=== PATIENT | female | born 1955 | race Caucasian/White ===

== ENCOUNTER → 2020-07-04 10:49 | Outpatient (BNVA) | payer MEDICARE, SELFPAY | PROVIDERS: PCP Internal Medicine; Referring Provider Internal Medicine; Visit Provider Orthopaedic Surgery | DX: M17.0 Bilateral primary osteoarthritis of knee (principal) | CPT/HCPCS: 20610; 99213; 99214; J1040 ==

== ENCOUNTER → 2020-08-12 09:30 | Outpatient (BNV) | payer MEDICARE, SELFPAY | PROVIDERS: PCP Internal Medicine; Visit Provider Internal Medicine Medical Oncology | DX: D51.9 Vitamin B12 deficiency anemia, unspecified (principal) | CPT/HCPCS: 99213; 99214 ==

== ENCOUNTER 2020-09-01 13:11 | Outpatient (REF) | payer MEDICARE, SELFPAY ==
[2020-09-01 14:09] LABS: MANUAL DIFF FLAG NO
[2020-09-01 14:34] LABS: Estimated Average Glucose 117 mg/dL; Hemoglobin A1c % 5.7 %
[2020-09-01 14:38] LABS: Basophils Percent Auto 0.6 % (0-2); Eosinophils Absolute Auto 0.2 X10*3/uL (0.0-0.4); Eosinophils Percent Auto 5.5 % (0-4); Hematocrit 38.6 % (37-47); Hemoglobin 12.6 g/dl (12.0-16.0); Imm Gran Abs Auto 0.01 X10*3/uL (0.00-0.03); Imm Gran Pct Auto 0.3 % (0.0-0.4); Lymphocytes Absolute Auto 1.3 X10*3/uL (1.2-4.9); Lymphocytes Percent Auto 40.3 % (20-40); Mean Corpuscular HGB Conc 32.6 g/dl (31.0-35.0); Mean Corpuscular Hemoglobin 32.1 pg (27.0-33.0); Mean Corpuscular Volume 98.2 fL (80-98); Mean Platelet Volume 11.1 fL (9.4-12.3); Monocytes Absolute Auto 0.2 X10*3/uL (0.1-1.2); Monocytes Percent Auto 6.1 % (2-11); Neutrophils Absolute Auto 1.5 X10*3/uL (2.0-8.3); Neutrophils Percent Auto 47.2 % (45-73); Platelet Count 264 X10*3/uL (160-400); Red Blood Count 3.93 X10*6/uL (4.20-5.50); Red Cell Distribution Width 12.7 % (11.0-16.0); White Blood Count 3.1 X10*3/uL (4.8-10.8)
[2020-09-01 15:06] LABS: Alanine Aminotransferase 11 U/L (0-31); Albumin Level 4.4 g/dL (3.5-5.0); Alkaline Phosphatase 67 U/L (39-117); Anion Gap 12 (12-20); Aspartate Amino Transferase 17 U/L (5-31); Bilirubin Total 1.3 mg/dL (0.0-1.0); Blood Urea Nitrogen 11 mg/dL (9-16); Calcium 8.4 mg/dL (8.4-10.2); Carbon Dioxide 28 mmol/L (22-29); Chloride 105 mmol/L (96-108); Cholesterol 166 mg/dL; Estimated Glomerular Filt Rate > 60; Glucose Fasting 102 mg/dL (60-99); HDL Cholesterol 41 mg/dL; LDL Cholesterol Calculated 78 mg/dl; Potassium 4.5 mmol/l (3.3-5.1); Sodium 140 mmol/L (135-145); Total Protein 6.9 g/dL (6.5-8.0); Triglycerides 235 mg/dL
[2020-09-01 15:19] LABS: TSH reflex Free T4 4.28 mIU/mL (0.32-4.0)
[2020-09-01 15:26] LABS: Erythrocyte Sedimentation Rate 10 MM/HR (0-20)
[2020-09-01 15:52] LABS: Folate > 20.0 ng/mL (> or = 4.0); Vitamin B12 > 2000 pg/mL (200-900)
[2020-09-01 16:27] LABS: Free T4 (Free Thyroxine) 0.89 ng/dL (0.71-1.85)
== END 2020-09-01 13:12 | disposition home or self-care (01) ==
LOC: HO.LAB 13:11
PROVIDERS: Visit Provider Internal Medicine
DX: E78.5 Hyperlipidemia, unspecified (principal); I10 Essential (primary) hypertension; R73.01 Impaired fasting glucose; E53.8 Deficiency of other specified B group vitamins; M79.7 Fibromyalgia; M51.36 Other intervertebral disc degeneration, lumbar region; E55.9 Vitamin D deficiency, unspecified; E66.3 Overweight
CPT/HCPCS: 36415; 80053; 80061; 82306; 82607; 82746; 83036; 84439; 84443; 85025; 85652

== ENCOUNTER 2020-12-15 15:51 | Outpatient (REF) | payer MEDICARE, SELFPAY ==
[2020-12-15 16:46] LABS: Glucose Urine UA NEG (NEG); Leukocyte Esterase Urine NEG (NEG); Nitrite Urine NEG (NEG); PH 6.5 (5.0-8.0); Specific Gravity - Urine 1.015 (1.005-1.025); Urine Blood NEG (NEG); Urine Ketones NEG (NEG); Urine Protein NEG (NEG-TRACE)
[2020-12-15 16:50] LABS: Appearance Urine CLEAR; Color Urine YELLOW
[2020-12-15 16:54] LABS: MANUAL DIFF FLAG NO
[2020-12-15 16:57] LABS: Basophils Percent Auto 0.5 % (0-2); Eosinophils Absolute Auto 0.3 X10*3/uL (0.0-0.4); Eosinophils Percent Auto 7.3 % (0-4); Hematocrit 40.8 % (37-47); Hemoglobin 13.2 g/dl (12.0-16.0); Imm Gran Abs Auto 0.01 X10*3/uL (0.00-0.03); Imm Gran Pct Auto 0.3 % (0.0-0.4); Lymphocytes Absolute Auto 1.6 X10*3/uL (1.2-4.9); Mean Corpuscular HGB Conc 32.4 g/dl (31.0-35.0); Mean Corpuscular Hemoglobin 31.7 pg (27.0-33.0); Mean Corpuscular Volume 98.1 fL (80-98); Mean Platelet Volume 10.9 fL (9.4-12.3); Monocytes Absolute Auto 0.2 X10*3/uL (0.1-1.2); Monocytes Percent Auto 5.1 % (2-11); Neutrophils Absolute Auto 1.6 X10*3/uL (2.0-8.3); Neutrophils Percent Auto 43.8 % (45-73); Platelet Count 273 X10*3/uL (160-400); Red Blood Count 4.16 X10*6/uL (4.20-5.50); Red Cell Distribution Width 12.6 % (11.0-16.0); White Blood Count 3.7 X10*3/uL (4.8-10.8)
[2020-12-15 17:31] LABS: Alanine Aminotransferase 15 U/L (0-31); Albumin Level 4.5 g/dL (3.5-5.0); Alkaline Phosphatase 74 U/L (39-117); Anion Gap 14 (12-20); Aspartate Amino Transferase 17 U/L (5-31); Bilirubin Total 1.8 mg/dL (0.0-1.0); Blood Urea Nitrogen 15 mg/dL (9-16); Calcium 9.2 mg/dL (8.4-10.2); Carbon Dioxide 28 mmol/L (22-29); Chloride 103 mmol/L (96-108); Cholesterol 187 mg/dL; Estimated Glomerular Filt Rate > 60; Glucose Fasting 103 mg/dL (60-99); HDL Cholesterol 53 mg/dL; LDL Cholesterol Calculated 102 mg/dl; Potassium 4.5 mmol/L (3.3-5.1); Sodium 140 mmol/L (135-145); Total Protein 7.2 g/dL (6.5-8.0); Triglycerides 163 mg/dL
[2020-12-15 17:51] LABS: Erythrocyte Sedimentation Rate 9 MM/HR (0-20)
[2020-12-15 17:52] LABS: TSH reflex Free T4 3.81 uIU/mL (0.32-4.0); Vitamin D 25-OH Total 23.9 ng/mL (>30)
[2020-12-15 18:13] LABS: Folate > 20.0 ng/mL (> or = 4.0); Vitamin B12 > 2000 pg/mL (200-900)
== END 2020-12-15 15:52 | disposition home or self-care (01) ==
LOC: HO.LAB 15:51
PROVIDERS: PCP Internal Medicine; Visit Provider Internal Medicine
DX: E53.8 Deficiency of other specified B group vitamins (principal); I10 Essential (primary) hypertension; M79.7 Fibromyalgia; D72.819 Decreased white blood cell count, unspecified; E78.00 Pure hypercholesterolemia, unspecified; R73.01 Impaired fasting glucose; M17.0 Bilateral primary osteoarthritis of knee; E66.3 Overweight; E55.9 Vitamin D deficiency, unspecified
CPT/HCPCS: 36415; 80053; 80061; 81003; 82306; 82607; 82746; 84443; 85025; 85652

== ENCOUNTER 2021-12-03 11:07 | Outpatient (REF) | payer MEDICARE, SELFPAY ==
[2021-12-03 11:29] LABS: MANUAL DIFF FLAG NO
[2021-12-03 12:31] LABS: Basophils Percent Auto 0.3 % (0-2); Eosinophils Absolute Auto 0.2 X10*3/uL (0.0-0.4); Eosinophils Percent Auto 5.2 % (0-4); Hematocrit 39.5 % (37.0-47.0); Hemoglobin 12.6 g/dl (12.0-16.0); Imm Gran Abs Auto 0.01 X10*3/uL (0.00-0.03); Imm Gran Pct Auto 0.3 % (0.0-0.4); Lymphocytes Absolute Auto 1.6 X10*3/uL (1.2-4.9); Lymphocytes Percent Auto 42.2 % (20-40); Mean Corpuscular HGB Conc 31.9 g/dl (31.0-35.0); Mean Corpuscular Hemoglobin 31.3 pg (27.0-33.0); Mean Platelet Volume 11.1 fL (9.4-12.3); Monocytes Absolute Auto 0.2 X10*3/uL (0.1-1.2); Monocytes Percent Auto 6.3 % (2-11); Neutrophils Absolute Auto 1.7 x10*3/uL (2.0-8.3); Neutrophils Percent Auto 45.7 % (45-73); Platelet Count 282 X10*3/uL (160-400); Red Blood Count 4.03 X10*6/uL (4.20-5.50); Red Cell Distribution Width 12.8 % (11.0-16.0); White Blood Count 3.7 X10*3/uL (4.8-10.8)
[2021-12-03 12:40] LABS: Estimated Average Glucose 117 mg/dL; Hemoglobin A1c % 5.7 %
[2021-12-03 12:45] LABS: Appearance Urine CLOUDY; Color Urine YELLOW; Glucose Urine UA NEG (NEG); Leukocyte Esterase Urine TRACE (NEG); Nitrite Urine NEG (NEG); Specific Gravity - Urine >= 1.030 (1.005-1.025); UACC Culture Trigger YES; Urine Blood NEG (NEG); Urine Ketones 5 MG/DL (NEG); Urine Protein 1+ MG/DL (NEG-TRACE)
[2021-12-03 13:01] LABS: Alanine Aminotransferase 17 U/L (0-31); Albumin Level 4.3 g/dL (3.5-5.0); Alkaline Phosphatase 72 U/L (39-117); Anion Gap 12 (12-20); Aspartate Amino Transferase 18 U/L (5-31); Bilirubin Total 1.9 mg/dL (0.0-1.0); Blood Urea Nitrogen 13 mg/dL (9-16); Calcium 9.8 mg/dL (8.4-10.2); Carbon Dioxide 29 mmol/L (22-29); Chloride 103 mmol/L (96-108); Cholesterol 173 mg/dL; Estimated Glomerular Filt Rate 57; Glucose Fasting 102 mg/dL (60-99); HDL Cholesterol 51 mg/dL; LDL Cholesterol Calculated 99 mg/dl; Potassium 4.3 mmol/L (3.3-5.1); Sodium 140 mmol/L (135-145); Total Protein 6.9 g/dL (6.5-8.0); Triglycerides 119 mg/dL
[2021-12-03 13:02] LABS: Bacteria Urine 2+ /LPF; RBC Urine 0-2 /HPF (0); Squamous Epithelial Cell Urine 3+ /LPF
[2021-12-03 13:24] LABS: TSH reflex Free T4 3.21 uIU/mL (0.32-4.0); Vitamin D 25-OH Total 22.7 ng/mL (>30)
[2021-12-03 13:38] LABS: Folate > 20.0 ng/mL (> or = 4.0); Vitamin B12 1886 pg/mL (200-900)
== END 2021-12-03 11:08 | disposition home or self-care (01) ==
LOC: HO.LAB 11:07
PROVIDERS: PCP Internal Medicine; Visit Provider Internal Medicine
DX: R73.01 Impaired fasting glucose (principal); E53.8 Deficiency of other specified B group vitamins; I10 Essential (primary) hypertension; E78.00 Pure hypercholesterolemia, unspecified; E55.9 Vitamin D deficiency, unspecified
CPT/HCPCS: 36415; 80053; 80061; 81001; 82306; 82607; 82746; 83036; 84443; 85025; 87086

== ENCOUNTER 2022-02-19 16:18 | Outpatient (REF) | payer MEDICARE, SELFPAY ==
--- NOTE | ~2022-02-19 | XR_ITS ---
EXAMINATION: XR LUMBAR SPINE XR HIP, LEFT XR KNEE, BILATERAL CLINICAL INFORMATION: Low back pain. Bilateral knee and left hip pain. COMPARISON: None. TECHNIQUE: Lumbar spine 3 views. Left hip 2 views. 4 views each knee. FINDINGS: Lumbar Spine: There is minimal levoscoliosis. Lumbar lordosis is maintained normal. There is mild grade 1 retrolisthesis L3 over L4 and L2 over L3 with degenerative disc changes at L2-L3 and L3-L4 disc levels with endplate sclerosis at the L3-L4 and minimal at the L4-L5 disc levels. The rest of the disc heights are maintained normal. No acute fracture or lytic process seen. The paravertebral soft tissues are normal. SI joints are normal. Left Hip: The left hip joint space is maintained normal. There is no visible acute fracture, dislocation or bony erosive changes. The soft tissues are normal. Left knee: There is mild reduction in the medial and patellofemoral compartment joint space with mild periarticular spurring. No loose bodies seen. There is mild suprapatellar joint effusion. No bony erosive changes or fracture. Right knee: There is some mild loss of medial and patellofemoral compartment joint space with periarticular spurring. There is minimal suprapatellar joint effusion. No loose bodies or bony erosive changes no acute fracture. XR/XR hip LT min 2V IMPRESSION: Degenerative disc changes L2-L3 and L3-L4 disc levels with ventral spondylosis. Grade 1 retrolisthesis L3 over L4 and L2 over L3. No acute fractures seen. Unremarkable left hip exam. Bilateral degenerative changes medial and patellofemoral compartments with periarticular spurring in both knees. There is mild suprapatellar joint effusion bilaterally. No visible acute fracture seen.
--- NOTE | ~2022-02-19 | XR_ITS ---
EXAMINATION: XR LUMBAR SPINE XR HIP, LEFT XR KNEE, BILATERAL CLINICAL INFORMATION: Low back pain. Bilateral knee and left hip pain. COMPARISON: None. TECHNIQUE: Lumbar spine 3 views. Left hip 2 views. 4 views each knee. FINDINGS: Lumbar Spine: There is minimal levoscoliosis. Lumbar lordosis is maintained normal. There is mild grade 1 retrolisthesis L3 over L4 and L2 over L3 with degenerative disc changes at L2-L3 and L3-L4 disc levels with endplate sclerosis at the L3-L4 and minimal at the L4-L5 disc levels. The rest of the disc heights are maintained normal. No acute fracture or lytic process seen. The paravertebral soft tissues are normal. SI joints are normal. Left Hip: The left hip joint space is maintained normal. There is no visible acute fracture, dislocation or bony erosive changes. The soft tissues are normal. Left knee: There is mild reduction in the medial and patellofemoral compartment joint space with mild periarticular spurring. No loose bodies seen. There is mild suprapatellar joint effusion. No bony erosive changes or fracture. Right knee: There is some mild loss of medial and patellofemoral compartment joint space with periarticular spurring. There is minimal suprapatellar joint effusion. No loose bodies or bony erosive changes no acute fracture. XR/XR lumbar spine 2-3V IMPRESSION: Degenerative disc changes L2-L3 and L3-L4 disc levels with ventral spondylosis. Grade 1 retrolisthesis L3 over L4 and L2 over L3. No acute fractures seen. Unremarkable left hip exam. Bilateral degenerative changes medial and patellofemoral compartments with periarticular spurring in both knees. There is mild suprapatellar joint effusion bilaterally. No visible acute fracture seen.
--- NOTE | ~2022-02-19 | XR_ITS ---
EXAMINATION: XR LUMBAR SPINE XR HIP, LEFT XR KNEE, BILATERAL CLINICAL INFORMATION: Low back pain. Bilateral knee and left hip pain. COMPARISON: None. TECHNIQUE: Lumbar spine 3 views. Left hip 2 views. 4 views each knee. FINDINGS: Lumbar Spine: There is minimal levoscoliosis. Lumbar lordosis is maintained normal. There is mild grade 1 retrolisthesis L3 over L4 and L2 over L3 with degenerative disc changes at L2-L3 and L3-L4 disc levels with endplate sclerosis at the L3-L4 and minimal at the L4-L5 disc levels. The rest of the disc heights are maintained normal. No acute fracture or lytic process seen. The paravertebral soft tissues are normal. SI joints are normal. Left Hip: The left hip joint space is maintained normal. There is no visible acute fracture, dislocation or bony erosive changes. The soft tissues are normal. Left knee: There is mild reduction in the medial and patellofemoral compartment joint space with mild periarticular spurring. No loose bodies seen. There is mild suprapatellar joint effusion. No bony erosive changes or fracture. Right knee: There is some mild loss of medial and patellofemoral compartment joint space with periarticular spurring. There is minimal suprapatellar joint effusion. No loose bodies or bony erosive changes no acute fracture. XR/XR knee RT 3V IMPRESSION: Degenerative disc changes L2-L3 and L3-L4 disc levels with ventral spondylosis. Grade 1 retrolisthesis L3 over L4 and L2 over L3. No acute fractures seen. Unremarkable left hip exam. Bilateral degenerative changes medial and patellofemoral compartments with periarticular spurring in both knees. There is mild suprapatellar joint effusion bilaterally. No visible acute fracture seen.
--- NOTE | ~2022-02-19 | XR_ITS ---
EXAMINATION: XR LUMBAR SPINE XR HIP, LEFT XR KNEE, BILATERAL CLINICAL INFORMATION: Low back pain. Bilateral knee and left hip pain. COMPARISON: None. TECHNIQUE: Lumbar spine 3 views. Left hip 2 views. 4 views each knee. FINDINGS: Lumbar Spine: There is minimal levoscoliosis. Lumbar lordosis is maintained normal. There is mild grade 1 retrolisthesis L3 over L4 and L2 over L3 with degenerative disc changes at L2-L3 and L3-L4 disc levels with endplate sclerosis at the L3-L4 and minimal at the L4-L5 disc levels. The rest of the disc heights are maintained normal. No acute fracture or lytic process seen. The paravertebral soft tissues are normal. SI joints are normal. Left Hip: The left hip joint space is maintained normal. There is no visible acute fracture, dislocation or bony erosive changes. The soft tissues are normal. Left knee: There is mild reduction in the medial and patellofemoral compartment joint space with mild periarticular spurring. No loose bodies seen. There is mild suprapatellar joint effusion. No bony erosive changes or fracture. Right knee: There is some mild loss of medial and patellofemoral compartment joint space with periarticular spurring. There is minimal suprapatellar joint effusion. No loose bodies or bony erosive changes no acute fracture. XR/XR knee LT 3V IMPRESSION: Degenerative disc changes L2-L3 and L3-L4 disc levels with ventral spondylosis. Grade 1 retrolisthesis L3 over L4 and L2 over L3. No acute fractures seen. Unremarkable left hip exam. Bilateral degenerative changes medial and patellofemoral compartments with periarticular spurring in both knees. There is mild suprapatellar joint effusion bilaterally. No visible acute fracture seen.
[2022-02-19 16:32] LABS: MANUAL DIFF FLAG NO
[2022-02-19 17:01] LABS: Basophils Percent Auto 0.5 % (0-2); Eosinophils Absolute Auto 0.3 X10*3/uL (0.0-0.4); Eosinophils Percent Auto 6.1 % (0-4); Hematocrit 40.1 % (37.0-47.0); Hemoglobin 12.8 g/dl (12.0-16.0); Imm Gran Abs Auto 0.01 X10*3/uL (0.00-0.03); Imm Gran Pct Auto 0.2 % (0.0-0.4); Lymphocytes Absolute Auto 1.8 X10*3/uL (1.2-4.9); Lymphocytes Percent Auto 44.7 % (20-40); Mean Corpuscular HGB Conc 31.9 g/dl (31.0-35.0); Mean Corpuscular Hemoglobin 30.9 pg (27.0-33.0); Mean Corpuscular Volume 96.9 fL (80.0-98.0); Mean Platelet Volume 10.7 fL (9.4-12.3); Monocytes Absolute Auto 0.2 X10*3/uL (0.1-1.2); Monocytes Percent Auto 5.7 % (2-11); Neutrophils Absolute Auto 1.7 x10*3/uL (2.0-8.3); Neutrophils Percent Auto 42.8 % (45-73); Platelet Count 282 X10*3/uL (160-400); Red Blood Count 4.14 X10*6/uL (4.20-5.50); Red Cell Distribution Width 12.9 % (11.0-16.0); White Blood Count 4.1 X10*3/uL (4.8-10.8)
[2022-02-19 17:10] LABS: Estimated Average Glucose 117 mg/dL; Hemoglobin A1c % 5.7 %
[2022-02-19 17:18] LABS: Alanine Aminotransferase 20 U/L (0-31); Albumin Level 4.2 g/dL (3.5-5.0); Alkaline Phosphatase 70 U/L (39-117); Anion Gap 13 (12-20); Aspartate Amino Transferase 20 U/L (5-31); Bilirubin Total 1.8 mg/dL (0.0-1.0); Blood Urea Nitrogen 13 mg/dL (9-16); Calcium 9.4 mg/dL (8.4-10.2); Carbon Dioxide 28 mmol/L (22-29); Chloride 103 mmol/L (96-108); Cholesterol 191 mg/dL; Estimated Glomerular Filt Rate 59; Glucose Fasting 104 mg/dL (60-99); HDL Cholesterol 49 mg/dL; LDL Cholesterol Calculated 114 mg/dl; Magnesium 2.1 mg/dL (1.6-2.6); Potassium 4.4 mmol/L (3.3-5.1); Sodium 140 mmol/L (135-145); Total Protein 7.1 g/dL (6.5-8.0); Triglycerides 143 mg/dL
[2022-02-19 17:40] LABS: TSH reflex Free T4 1.95 uIU/mL (0.32-4.0); Vitamin D 25-OH Total 21.1 ng/mL (>30)
== END 2022-02-19 16:19 | disposition home or self-care (01) ==
LOC: HO.LAB 16:18
PROVIDERS: PCP Internal Medicine; Visit Provider Internal Medicine
DX: I10 Essential (primary) hypertension (principal); E78.00 Pure hypercholesterolemia, unspecified; R73.01 Impaired fasting glucose; E83.42 Hypomagnesemia; E55.9 Vitamin D deficiency, unspecified; M17.0 Bilateral primary osteoarthritis of knee; M25.552 Pain in left hip; M51.36 Other intervertebral disc degeneration, lumbar region; Z91.81 History of falling
CPT/HCPCS: 36415; 72100; 73502; 73562; 80053; 80061; 82306; 83036; 83735; 84443; 85025

== ENCOUNTER → 2022-03-04 08:44 | Outpatient (BNVA) | payer MEDICARE, SELFPAY | PROVIDERS: PCP Internal Medicine; Visit Provider Orthopaedic Surgery | DX: M17.0 Bilateral primary osteoarthritis of knee (principal) | CPT/HCPCS: 20610; 99212; J1100 ==

== ENCOUNTER 2022-03-31 11:57 | Day surgery (SDC) | payer MEDICARE, SELFPAY ==
--- NOTE | 2022-03-30 08:30 | P.CONAN_ITS ---
Documented by User: Elba Frank NP 03/30/22 08:31 HPI - Anesthesia Eval Consult details Narrative: 66yo F for Colonoscopy PMFSH Active Problems Active Problems: All Active Problems (Updated 02/25/22 @ 19:04 by Quinton Knight MD) Pain of right great toe (Acute) GERD (gastroesophageal reflux disease) (Acute) Left hip pain (Acute) Leukopenia (Acute) Serum total bilirubin elevated (Acute) Overweight (BMI 25.0-29.9) (Acute) Depression (Acute) Anxiety (Acute) Osteoarthritis of knees, bilateral (Acute) Cervical spondylosis (Acute) Lumbar degenerative disc disease (Acute) Fibromyalgia (Acute) Vitamin D deficiency (Acute) Leukopenia (Acute) Exertional dyspnea (Acute) Impaired fasting glucose (Acute) Benign essential hypertension (Acute) Pure hypercholesterolemia (Acute) Vitamin B12 deficiency (Acute) Primary osteoarthritis of knees, bilateral (Acute) Past Medical History Medical History Anxiety Benign essential hypertension Cervical spondylosis Depression Exertional dyspnea Fibromyalgia Impaired fasting glucose Leukopenia Lumbar degenerative disc disease Osteoarthritis of knees, bilateral Overweight (BMI 25.0-29.9) Pure hypercholesterolemia Serum total bilirubin elevated Vitamin D deficiency Family History Family History Father Past heart attack CVD (cardiovascular disease) Mother Hypertension Lung cancer Sister Breast cancer Brother Diabetes Maternal Aunt Diabetes Paternal Aunt Ovarian cancer Surgical History Surgical History H/O left breast biopsy History of appendectomy Social History Social History Household Members: Family Housing: House Are you a primary career developer to a significant other at home: No Do you presently have visiting nurse or other home services: No Alcohol intake: current Alcohol intake frequency: holidays/special occasions o nly Patient Tobacco Use Status: Former Tobacco user Second Hand Smoke Exposure: Yes Use of substances other than those prescribed or required for medical reasons: No Are you DNR?: No Advance Directives: No Advance Directives Information Provided: Yes Recently lost weight without trying: No How much weight loss: 2-13 pounds Nutrition Risks: No Nutritional Risk service: No Current occupational status: retired Cognitive needs: No Hearing needs: No Vision needs: Yes Meds Allergies Allergy/AdvReac Type Severity Reaction Status Date / Time levofloxacin [From LEVAQUIN] AdvReac Mild TENDONITIS, Verified 02/23/22 11:17 JOINT PAIN Home Medications Medication Instructions Recorded Confirmed Last Taken Type cholecalciferol (vitamin D3) 25 25 mcg PO DAILY 02/23/21 02/23/22 Unknown Hi story mcg (1,000 unit) tablet (Vitamin D3) cyanocobalamin (vitamin B-12) 1,000 mcg PO DAILY 02/23/21 02/23/22 Unknown History 1,000 mcg capsule folic acid 1 mg tablet 1 tab PO DAILY 02/23/21 02/23/22 Unknown History magnesium 250 mg tablet 250 mg PO DAILY 02/23/21 02/23/22 Unknown History loratadine 10 mg tablet (Claritin) 10 mg PO DAILY 02/23/22 02/23/22 Unknown History Exam Exam Date and Time: March 30, [id number] Pertinent Lab Results Pertinent Lab Results: Laboratory Tests 02/23/22 02/23/22 11:07 11:07 WBC 3.4 L Hgb 12.5 Hct 38.1 Plt Count 250 Sodium 141 Potassium 4.6 Chloride 106 Carbon Dioxide 27 BUN 15 Creatinine 0.97 Assessment and Plan Assessment Anesthesia Assessment: Chart Reviewed Documented by User: Yamilka Cortez MD 03/31/22 13:26 [facility] Past Medical History Medical History Anxiety Benign essential hypertension Cervical spondylosis Depression Exertional dyspnea Fibromyalgia Impaired fasting glucose Leukopenia Lumbar degenerative disc disease Osteoarthritis of knees, bilateral Overweight (BMI 25.0-29.9) Pure hypercholesterolemia Serum total bilirubin elevated Vitamin D deficiency Family History Family History Father Past heart attack CVD (cardiovascular disease) Mother Hypertension Lung cancer Sister Breast cancer Brother Diabetes Maternal Aunt Diabetes Paternal Aunt Ovarian cancer Surgical History Surgical History H/O left breast biopsy History of appendectomy History of Problems with Anesthesia: No Social History Social History Household Members: Family Housing: House Are you a primary career developer to a significant other at home: No Do you presently have visiting nurse or other home services: No Alcohol intake: current Alcohol intake frequency: holidays/special occasions only Patient Tobacco Use Status: Former Tobacco user Second Hand Smoke Exposure: Yes Use of substances other than those prescribed or required for medical reasons: No Are you DNR?: No Advance Directives: No Advance Directives Information Provided: Yes Recently lost weight without trying: No How much weight loss: 2-13 pounds Nutrition Risks: No Nutritional Risk service: No Current occupational status: retired Cognitive needs: No Hearing needs: No Vision needs: Yes Meds Allergies Allergy/AdvReac Type Severity Reaction Status Date / Time levofloxacin [From LEVAQUIN] AdvReac Mild TENDONITIS, Verified 02/23/22 11:17 JOINT PAIN Home Medications Medication Instructions Recorded Confirmed Last Taken Type cholecalciferol (vitamin D3) 25 25 mcg PO DAILY 02/23/21 02/23/22 Unknown History mcg (1,000 unit) tablet (Vitamin D3) cyanocobalamin (vitamin B-12) 1,000 mcg PO DAILY 02/23/21 02/23/22 Unknown History 1,000 mcg capsule folic acid 1 mg tablet 1 tab PO DAILY 02/23/21 02/23/22 Unknown History magnesium 250 mg tablet 250 mg PO DAILY 02/23/21 02/23/22 Unknown History loratadine 10 mg tablet (Claritin) 10 mg PO DAILY 02/23/22 02/23/22 Unknown History Exam Airway Mallampati Class: III TM Dist: >3cm Neck ROM: Full Heart: RRR Lungs: CTA Assessment and Plan Final Anesthetic Review History of Problems with Anesthesia: No NPO: Yes ASA Class: II Final Preanesthetic Review: Meds/Allgs Chart Reviewed, Consent Obtained/Reviewed and Anes Risks/Benef Reviewed Patient Risk: Low Procedure Risk: Low Anesthetic Plan Anesthetic Plan: MAC: Disposition: Standard PACU
[2022-03-31 12:04] VITALS: BMI 27.9
[2022-03-31 12:09] VITALS: BP 155/75; PULSE 84; RESP 16; TEMP 36.4; O2SAT 97
[2022-03-31] MEDS: Lactated Ringers 1,000 ML 100 ML IVCONT (12:29)
--- NOTE | 2022-03-31 12:59 | MHC.SHP ---
Pre-Procedural Eval Section A Date of Service: 03/31/22 The patient is an INPATIENT: No Changes since office visit: No Cold of Flu in the past 2 weeks, No New Medical Problems, No Changes in Medication and No Patient answered all questions The History & Physical has been completed within 30 days and I have reviewed it.: Yes Section B Chief Complaint: screening Allergies: Allergies Allergy/AdvReac Type Severity Reaction Status Date / Time levofloxacin [From LEVAQUIN] AdvReac Mild TENDONITIS, Verified 02/23/22 11:17 JOINT PAIN Plan I have reviewed the history and physical and performed a pertinent physical examination on my patient. No changes have occurred unless specified.
--- NOTE | 2022-03-31 13:29 | P.BOP_ITS ---
Brief Operative Note Date of Service: 03/31/22 Pre-op diagnosis: screening Post-op diagnosis: same Procedure: colonoscopy Surgeon: Blair Street Anesthesia: MAC Was an Sheet Rock Sander used for this Procedure?: No Estimated blood loss (mL): 0 Pathology: none sent Condition: stable Disposition: PACU
[2022-03-31 13:30] VITALS: BP 125/59; PULSE 66; RESP 16; TEMP 36.3; O2SAT 100
[2022-03-31 13:45] VITALS: BP 125/55; PULSE 65; RESP 16; O2SAT 98
[2022-03-31 14:00] VITALS: BP 142/68; PULSE 63; RESP 16; TEMP 36.3; O2SAT 100
--- NOTE | 2022-03-31 14:44 | OP_ITS ---
SURGEON: Blair Street MD INDICATIONS: Colon cancer screening. PREOPERATIVE DIAGNOSIS: POSTOPERATIVE DIAGNOSIS: PROCEDURE PERFORMED: Colonoscopy to the terminal ileum. ESTIMATED BLOOD LOSS: COMPLICATIONS: ANESTHESIA: ASSISTANTS: SPECIMENS: MEDICATIONS: Monitored anesthesia care. DESCRIPTION OF PROCEDURE: History and physical were performed. The risks and benefits of the procedure were explained to the patient. Informed consent was obtained. The patient was placed in the left lateral decubitus position. A digital rectal exam was performed and was found to be normal. The Olympus pediatric video colonoscope was introduced into the rectum and advanced to the cecum without difficulty. The cecum was identified by transillumination, palpation, and identification of ileocecal valve. Examination was performed and the scope was removed. She tolerated the procedure well and was sent to recovery area in stable condition. FINDINGS: The terminal ileum was examined and appeared normal. The visualized colonic mucosa was normal. The quality of the prep was good. No polyps were identified. Retroflexed examination showed moderate-sized internal hemorrhoids. IMPRESSION: Normal screening colonoscopy. RECOMMENDATION: 1. Follow up as needed. 2. Repeat colonoscopy is recommended in 10 years for average risk individuals. MD CORTNEY Kent/JAMES / [phone]
== END 2022-03-31 15:00 | disposition home or self-care (01) ==
PROVIDERS: PCP Internal Medicine; Visit Provider Internal Medicine Gastroenterology
PROC: 0DJD8ZZ Inspection of Lower Intestinal Tract, Via Natural or Artificial Opening Endoscopic (ICD-10-PCS; CPT 45378; principal; 2022-03-31 13:00)
DX: Z12.11 Encounter for screening for malignant neoplasm of colon (principal); K64.8 Other hemorrhoids; K30 Functional dyspepsia; R73.9 Hyperglycemia, unspecified; I10 Essential (primary) hypertension; E78.00 Pure hypercholesterolemia, unspecified; E55.9 Vitamin D deficiency, unspecified; F41.8 Other specified anxiety disorders; D72.819 Decreased white blood cell count, unspecified; Z79.1 Long term (current) use of non-steroidal anti-inflammatories (NSAID); Z79.899 Other long term (current) drug therapy; Z88.1 Allergy status to other antibiotic agents; Z87.891 Personal history of nicotine dependence
CPT/HCPCS: G0121

== ENCOUNTER 2022-06-01 13:36 | Outpatient (REF) | payer MEDICARE, SELFPAY ==
[2022-06-01 13:58] LABS: MANUAL DIFF FLAG NO
[2022-06-01 14:46] LABS: Basophils Percent Auto 0.6 % (0-2); Eosinophils Absolute Auto 0.2 X10*3/uL (0.0-0.4); Eosinophils Percent Auto 5.7 % (0-4); Hematocrit 39.7 % (37.0-47.0); Hemoglobin 13.3 g/dl (12.0-16.0); Imm Gran Abs Auto 0.01 X10*3/uL (0.00-0.03); Imm Gran Pct Auto 0.3 % (0.0-0.4); Lymphocytes Absolute Auto 1.1 X10*3/uL (1.2-4.9); Lymphocytes Percent Auto 34.2 % (20-40); Mean Corpuscular HGB Conc 33.5 g/dl (31.0-35.0); Mean Corpuscular Hemoglobin 32.8 pg (27.0-33.0); Mean Corpuscular Volume 97.8 fL (80.0-98.0); Mean Platelet Volume 10.9 fL (9.4-12.3); Monocytes Absolute Auto 0.2 X10*3/uL (0.1-1.2); Monocytes Percent Auto 7.2 % (2-11); Neutrophils Absolute Auto 1.7 x10*3/uL (2.0-8.3); Platelet Count 268 X10*3/uL (160-400); Red Blood Count 4.06 X10*6/uL (4.20-5.50); Red Cell Distribution Width 12.8 % (11.0-16.0); White Blood Count 3.3 X10*3/uL (4.8-10.8)
[2022-06-01 15:10] LABS: Appearance Urine Cloudy; Color Urine Yellow; Glucose Urine UA Negative (Negative); Leukocyte Esterase Urine Trace (Negative); Nitrite Urine Positive (Negative); PH 5.5 (5.0-9.0); Specific Gravity - Urine >= 1.030 (1.005-1.025); UMIC TRIGGER UACC YES; Urine Blood Negative (Negative); Urine Ketones 15 mg/dL (Negative); Urine Protein Trace mg/dL (Neg-Trace)
[2022-06-01 15:14] LABS: Alanine Aminotransferase 21 U/L (0-31); Albumin Level 4.6 g/dL (3.5-5.0); Alkaline Phosphatase 85 U/L (39-117); Anion Gap 14 (12-20); Aspartate Amino Transferase 21 U/L (5-31); Bilirubin Total 1.6 mg/dL (0.0-1.0); Blood Urea Nitrogen 12 mg/dL (9-16); Calcium 9.5 mg/dL (8.4-10.2); Carbon Dioxide 30 mmol/L (22-29); Chloride 103 mmol/L (96-108); Cholesterol 194 mg/dL; Estimated Glomerular Filt Rate 53; Glucose Fasting 98 mg/dL (60-99); HDL Cholesterol 50 mg/dL; LDL Cholesterol Calculated 118 mg/dl; Potassium 4.2 mmol/L (3.3-5.1); Sodium 143 mmol/L (135-145); Total Protein 7.4 g/dL (6.5-8.0); Triglycerides 133 mg/dL
[2022-06-01 15:24] LABS: TSH reflex Free T4 3.23 uIU/mL (0.32-4.0); Vitamin D 25-OH Total 27.3 ng/mL (>30)
[2022-06-01 15:26] LABS: Bacteria Urine 3+ (None Seen); Calcium Oxalate Crystals Urine Present; Hyaline Casts Urine 0-2 /LPF (0-2); RBC Urine 0-2 /HPF (0-2); UACC Culture Trigger YES; WBC Urine 0-5 /HPF (0-5)
== END 2022-06-01 13:37 | disposition home or self-care (01) ==
LOC: HO.LAB 13:36
PROVIDERS: PCP Internal Medicine; Visit Provider Internal Medicine
DX: E78.00 Pure hypercholesterolemia, unspecified (principal); E55.9 Vitamin D deficiency, unspecified; I10 Essential (primary) hypertension
CPT/HCPCS: 36415; 80053; 80061; 81001; 81003; 82306; 84443; 85025; 87086

== ENCOUNTER 2022-08-20 09:04 | Outpatient (REF) | payer MEDICARE, SELFPAY ==
[2022-08-20 09:21] LABS: MANUAL DIFF FLAG NO
[2022-08-20 09:42] LABS: Basophils Percent Auto 0.3 % (0-2); Eosinophils Absolute Auto 0.2 X10*3/uL (0.0-0.4); Eosinophils Percent Auto 5.7 % (0-4); Hematocrit 40.3 % (37.0-47.0); Hemoglobin 13.1 g/dl (12.0-16.0); Imm Gran Abs Auto 0.01 X10*3/uL (0.00-0.03); Imm Gran Pct Auto 0.3 % (0.0-0.4); Lymphocytes Absolute Auto 1.6 X10*3/uL (1.2-4.9); Lymphocytes Percent Auto 44.7 % (20-40); Mean Corpuscular HGB Conc 32.5 g/dl (31.0-35.0); Mean Corpuscular Hemoglobin 31.8 pg (27.0-33.0); Mean Corpuscular Volume 97.8 fL (80.0-98.0); Mean Platelet Volume 10.4 fL (9.4-12.3); Monocytes Absolute Auto 0.2 X10*3/uL (0.1-1.2); Monocytes Percent Auto 6.9 % (2-11); Neutrophils Absolute Auto 1.5 x10*3/uL (2.0-8.3); Neutrophils Percent Auto 42.1 % (45-73); Platelet Count 268 X10*3/uL (160-400); Red Blood Count 4.12 X10*6/uL (4.20-5.50); Red Cell Distribution Width 12.4 % (11.0-16.0); White Blood Count 3.5 X10*3/uL (4.8-10.8)
[2022-08-20 10:48] LABS: Alanine Aminotransferase 11 U/L (0-31); Albumin Level 4.4 g/dL (3.5-5.0); Alkaline Phosphatase 72 U/L (39-117); Anion Gap 11 (12-20); Aspartate Amino Transferase 17 U/L (5-31); Bilirubin Total 1.8 mg/dL (0.0-1.0); Blood Urea Nitrogen 13 mg/dL (9-16); Calcium 9.4 mg/dL (8.4-10.2); Carbon Dioxide 30 mmol/L (22-29); Chloride 100 mmol/L (96-108); Cholesterol 193 mg/dL; Estimated Glomerular Filt Rate 56; Glucose Fasting 100 mg/dL (60-99); HDL Cholesterol 53 mg/dL; LDL Cholesterol Calculated 117 mg/dl; Potassium 4.2 mmol/L (3.3-5.1); TSH reflex Free T4 3.09 uIU/mL (0.32-4.0); Total Protein 6.9 g/dL (6.5-8.0); Triglycerides 116 mg/dL
[2022-08-20 10:51] LABS: Sodium 137 mmol/L (135-145)
[2022-08-20 12:35] LABS: Appearance Urine Cloudy; Color Urine Yellow; Glucose Urine UA Negative (Negative); Leukocyte Esterase Urine Trace (Negative); Nitrite Urine Negative (Negative); Specific Gravity - Urine >= 1.030 (1.005-1.025); UMIC TRIGGER UACC YES; Urine Blood Negative (Negative); Urine Ketones Trace mg/dL (Negative); Urine Protein Trace mg/dL (Neg-Trace)
[2022-08-20 12:44] LABS: Bacteria Urine 2+ (None Seen); Hyaline Casts Urine 0-2 /LPF (0-2); RBC Urine 0-2 /HPF (0-2); Squamous Epithelial Cell Urine >20 /HPF (0-2); UACC Culture Trigger YES
== END 2022-08-20 09:05 | disposition home or self-care (01) ==
LOC: HO.LAB 09:04
PROVIDERS: PCP Internal Medicine; Visit Provider Internal Medicine
DX: E78.00 Pure hypercholesterolemia, unspecified (principal); I10 Essential (primary) hypertension; E55.9 Vitamin D deficiency, unspecified
CPT/HCPCS: 36415; 80053; 80061; 81001; 81003; 82306; 84443; 85025; 87086

== ENCOUNTER 2023-03-15 17:21 | Outpatient (REF) | payer MEDICARE, SELFPAY ==
[2023-03-15 17:37] LABS: MANUAL DIFF FLAG NO
[2023-03-15 18:13] LABS: Appearance Urine Cloudy; Color Urine Yellow; Glucose Urine UA Negative (Negative); Leukocyte Esterase Urine Small (1+) (Negative); Nitrite Urine Negative (Negative); PH 7.5 (5.0-9.0); UMIC TRIGGER UACC YES; Urine Blood Negative (Negative); Urine Ketones Trace mg/dL (Negative); Urine Protein Trace mg/dL (Neg-Trace)
[2023-03-15 18:15] LABS: Basophils Percent Auto 0.2 % (0-2); Eosinophils Absolute Auto 0.3 X10*3/uL (0.0-0.4); Eosinophils Percent Auto 6.7 % (0-4); Hematocrit 41.3 % (37.0-47.0); Hemoglobin 13.4 g/dl (12.0-16.0); Imm Gran Abs Auto 0.01 X10*3/uL (0.00-0.03); Imm Gran Pct Auto 0.2 % (0.0-0.4); Lymphocytes Absolute Auto 1.8 X10*3/uL (1.2-4.9); Lymphocytes Percent Auto 43.3 % (20-40); Mean Corpuscular HGB Conc 32.4 g/dl (31.0-35.0); Mean Corpuscular Hemoglobin 31.7 pg (27.0-33.0); Mean Corpuscular Volume 97.6 fL (80.0-98.0); Mean Platelet Volume 11.2 fL (9.4-12.3); Monocytes Absolute Auto 0.2 X10*3/uL (0.1-1.2); Monocytes Percent Auto 4.9 % (2-11); Neutrophils Absolute Auto 1.8 x10*3/uL (2.0-8.3); Neutrophils Percent Auto 44.7 % (45-73); Platelet Count 258 X10*3/uL (160-400); Red Blood Count 4.23 X10*6/uL (4.20-5.50); Red Cell Distribution Width 12.9 % (11.0-16.0); White Blood Count 4.1 X10*3/uL (4.8-10.8)
[2023-03-15 18:15] LABS: Bacteria Urine 1+ (None Seen); Hyaline Casts Urine 0-2 /LPF (0-2); RBC Urine 0-2 /HPF (0-2); Squamous Epithelial Cell Urine >20 /HPF (0-2); UACC Culture Trigger YES
[2023-03-15 18:36] LABS: Estimated Average Glucose 111 mg/dL; Hemoglobin A1c % 5.5 %
[2023-03-15 18:38] LABS: Alanine Aminotransferase 19 U/L (0-31); Albumin Level 4.4 g/dL (3.5-5.0); Alkaline Phosphatase 76 U/L (39-117); Anion Gap 16 (12-20); Aspartate Amino Transferase 22 U/L (5-31); Bilirubin Total 2.1 mg/dL (0.0-1.0); Blood Urea Nitrogen 12 mg/dL (9-16); Calcium 9.8 mg/dL (8.4-10.2); Carbon Dioxide 26 mmol/L (22-29); Chloride 104 mmol/L (96-108); Cholesterol 193 mg/dL; Estimated Glomerular Filt Rate > 60; Glucose Fasting 106 mg/dL (60-99); HDL Cholesterol 45 mg/dL; LDL Cholesterol Calculated 101 mg/dl; Potassium 4.5 mmol/L (3.3-5.1); Sodium 141 mmol/L (135-145); Total Protein 7.3 g/dL (6.5-8.0); Triglycerides 235 mg/dL
[2023-03-15 18:54] LABS: TSH reflex Free T4 4.43 uIU/mL (0.32-4.0); Vitamin D 25-OH Total 44.5 ng/mL (>30)
[2023-03-15 19:52] LABS: Free T4 (Free Thyroxine) 0.86 ng/dL (0.71-1.85)
[2023-03-15 21:51] LABS: Creatinine Urine 265.91 mg/dL; Microalbum/Creatinine Ratio Ur 3.7 ug/mg cr
== END 2023-03-15 17:22 | disposition home or self-care (01) ==
LOC: HO.LAB 17:21
PROVIDERS: PCP Internal Medicine; Visit Provider Internal Medicine
DX: I10 Essential (primary) hypertension (principal); E11.9 Type 2 diabetes mellitus without complications; E55.9 Vitamin D deficiency, unspecified; E78.00 Pure hypercholesterolemia, unspecified; R30.0 Dysuria
CPT/HCPCS: 36415; 80053; 80061; 81001; 82043; 82306; 83036; 84439; 84443; 85025; 87086

== ENCOUNTER 2023-03-28 11:13 | Outpatient (AMB) | payer OTHER, SELFPAY ==
--- NOTE | 2023-03-28 11:16 | MHC.OFFVIS ---
Intake Intake Visit Reasons: OV-B/L Knee OA - Last injected 03/04/22 Intake Note: Tonia is a 67 year old female who presents today for a follow up of her bilateral knee pain. Last b/l knee injections done 03/04/22. Patient reports that she has great relief with the injections and she would like to repeat injections. She complains of left hip pain, this pain is increased when she makes lateral movements or flipping over in bed. Allergies levofloxacin [From LEVAQUIN] Adverse Reaction (Mild, Verified 03/18/23 09:44) TENDONITIS, JOINT PAIN HPI OV-B/L Knee OA - Last injected 03/04/22 HPI Details Tonia is a 66 year old woman with bilateral knee OA. She was last injected on 03/04/22, and says this lasted until recently. Her pain has returned, and is located mostly in the anterior aspect of her knee, worse in her left. She has pain with daily activity, worse with using stairs or prolonged periods of walking. She also complains of pain in her left hip, which occurs with using stairs or when rolling over in bed. She says this pain radiates from the lateral aspect of her hip and down her leg. [facility] Medical History Anxiety Benign essential hypertension Cervical spondylosis Depression Exertional dyspnea Fibromyalgia Impaired fasting glucose Leukopenia Lumbar degenerative disc disease Osteoarthritis of knees, bilateral Overweight (BMI 25.0-29.9) Pure hypercholesterolemia Serum total bilirubin elevated Vitamin D deficiency Surgical History H/O left breast biopsy History of appendectomy S/P colonoscopy (~03/31/22) Family History Father Past heart attack CVD (cardiovascular disease) Mother Hypertension Lung cancer Sister Breast cancer Brother Diabetes Maternal Aunt Diabetes Paternal Aunt Ovarian cancer Social History Household Members: Family Housing: House Are you a primary skin care instructor to a significant other at home: No Do you presently have visiting nurse or other home services: No Alcohol intake: current Alcohol intake frequency: holidays/special occasions only Patient Tobacco Use Status: Former Tobacco user e-Cigarette/Vaping Use: Never Used Second Hand Smoke Exposure: Yes service: No Current occupational status: retired Cognitive needs: No Hearing needs: No Vision needs: Yes Review of Systems Const All systems reviewed & are unremarkable except as noted in HPI and below Physical Exam Const General: no acute distress and alert Orientation/consciousness: patient oriented x3 Neuro General: patient oriented x3 Extrem Other: Bilateral Knees: Medial, lateral, and retropatellar TTP Left Hip: TTP trochanteric bursa Psych Appearance: grossly normal Affect: normal affect Attitude: cooperative Office Procedures Joint Inj/Aspir; Non-Pain Clin Coding Procedure code (CPT) selection complete Joint Injection/Drain Joint Injection/Drain Details: Injected 1 mL of Decadron and 3 mL 1% lidocaine and 3 mL of 0.25% Marcaine. Site was prepped using aseptic technique. Patient tolerated the procedure well. Primary Site: right knee Secondary Site: left knee Approach Used: anterolateral Coding - Large joint - Glenohumeral/Tronchanteric Bursa/Intraarticular Procedure code (CPT) selection complete Results Reviewed Results Reviewed: 03/28/23 11:21 BUPivacaine MPF 0.25 % [Sensorcaine-MPF 0.25% 10 ML] 10 ml .ROUTE .STK-MED ONE Lidocaine HCl 1 % [Xylocaine 1 %] 2 ml .ROUTE .STK-MED ONE Lidocaine HCl 2 % MPF [Xylocaine 2 % MPF] 5 ml .ROUTE .STK-MED ONE dexAMETHasone sod phosphate [Decadron] 4 mg .ROUTE .STK-MED ONE Assessment & Plan Assessment & Plan (1) Osteoarthritis of knees, bilateral: Code(s): M17.0 - Bilateral primary osteoarthritis of knee Qualifiers: Osteoarthritis type: primary Qualified Code(s): M17.0 - Bilateral primary osteoarthritis of knee Plan: This is a 67 year old woman with bilateral knee OA. She has pain with daily activity, and a Hx of good relief from steroid injections in the past. I injected her bilateral knees today, which she tolerated well. She can follow up prn. (2) Lumbar degenerative disc disease: Code(s): M51.36 - Other intervertebral disc degeneration, lumbar region Plan Scribed for Flavio Mike MD by Christ Torres medical office coordinator, on 03/28/23 at 11:25 AM, EST. Coding Level of Care Code Est Pt Level 3 (91469) Diagnoses Osteoarthritis of knees, bilateral M17.0 Osteoarthritis type: primary Lumbar degenerative disc disease M51.36 CPT Codes Coding - 36003 Large joint: 89393 - Large joint ([id number]) Coding - Joint 7: 11251 - Glenohumeral/Tronchanteric Bursa/Intraarticular ([id number])
== END 2023-03-28 11:42 | disposition home or self-care (01) ==
PROVIDERS: PCP Internal Medicine; Visit Provider Orthopaedic Surgery
DX: M17.0 Bilateral primary osteoarthritis of knee (principal); M51.36 Other intervertebral disc degeneration, lumbar region
CPT/HCPCS: 20610; 99213

== ENCOUNTER → 2023-03-28 11:13 | Outpatient (BNVA) | payer OTHER, SELFPAY | PROVIDERS: PCP Internal Medicine; Visit Provider Orthopaedic Surgery | DX: M17.0 Bilateral primary osteoarthritis of knee (principal); M51.36 Other intervertebral disc degeneration, lumbar region | CPT/HCPCS: 20610; J1100 ==

== ENCOUNTER 2023-06-24 16:14 | Outpatient (REF) | payer MEDICARE, SELFPAY | END 2023-06-24 16:15 | disposition home or self-care (01) | LOC: HO.LAB 16:14 | PROVIDERS: PCP Internal Medicine; Visit Provider Internal Medicine | DX: E55.9 Vitamin D deficiency, unspecified (principal); E53.8 Deficiency of other specified B group vitamins; R73.01 Impaired fasting glucose; I10 Essential (primary) hypertension; E78.00 Pure hypercholesterolemia, unspecified; R30.0 Dysuria | CPT/HCPCS: 36415; 80053; 80061; 81001; 82306; 82607; 82746; 83036; 84443; 85025; 87086 ==

== ENCOUNTER 2023-06-27 09:24 | Outpatient (AMB) | payer MEDICARE, SELFPAY ==
--- NOTE | 2023-06-27 09:25 | MHC.PC.OV ---
Vital Signs 06/27/23 09:26 06/27/23 09:28 Height 5 ft 6 in Weight 184 lb 4 oz 184 lb 4 oz BMI 29.7 BP 122/80 Blood Pressure Location Lt brachial Position Sitting Pulse 80 Pulse Source Pulse Oximeter Pulse Oximetry (%) 98 Oxygen Delivery Method Room Air Intake Visit Reasons: Annual Physical/3mth f/u Motor Tune Up Specialist Required: No Accompanied by: Self / Same As Patient Allergies levofloxacin [From LEVAQUIN] Adverse Reaction (Mild, Verified 06/27/23 10:12) TENDONITIS, JOINT PAIN Medication List - Last Reconciled 06/27/23 by Tarik Salguero MD amitriptyline 50 mg PO BEDTIME 90 days ascorbic acid (vitamin C) 100 mg PO DAILY atenolol 50 mg PO DAILY atorvastatin 10 mg PO DAILY cholecalciferol (vitamin D3) (Vitamin D3) 25 mcg PO DAILY cyanocobalamin (vitamin B-12) 1,000 mcg PO DAILY diclofenac sodium 75 mg PO BID PRN folic acid 1 tab PO DAILY loratadine (Claritin) 10 mg PO DAILY lorazepam 0.5 mg PO TID PRN 90 days magnesium 250 mg PO DAILY omeprazole 20 mg PO DAILY 90 days oxycodone-acetaminophen 7.5-325 mg 1 tab PO Q8H PRN 30 days paroxetine HCl 20 mg PO QAM Tobacco use date assessed: 06/27/23 Fall risk assessment: No Falls in past year Last assessed Fall Risk: 06/27/23 Dental Screening Dental Screen Date: 06/27/23 Did you have a dental visit in the last 12 months?: Yes Did you have a dental problem in the last 6 months where you did not have access to dental care?: No Was dental information given to patient?: Patient has dentist HPI Annual Physical/3mth f/u HPI Details Patient comes in today for her annual physical examination States that she feels okay She denies any headaches or dizziness Denies any chest pains, no SOB No nausea/vomiting, no abdominal pain No change in bowel habits noted Denies any acute urinary symptoms Had her follow up labs done a few days ago - to discuss her results Had her repeat colonoscopy last done on 03/31/[address] - was advised that she will need repeat colonoscopy in 10 years Had her mammogram last done last month at [facility] - mammogram was normal States that she no longer keeps up with her gynecology exam and pap smear [facility] Medical History (Updated 06/27/23 @ 10:41 by Tarik Salguero MD) Serum total bilirubin elevated Overweight (BMI 25.0-29.9) Depression Anxiety Osteoarthritis of knees, bilateral Cervical spondylosis Lumbar degenerative disc disease Fibromyalgia Vitamin D deficiency Leukopenia Exertional dyspnea Impaired fasting glucose Benign essential hypertension Pure hypercholesterolemia Surgical History (Updated 06/27/23 @ 10:20 by Tarik Salguero MD) S/P colonoscopy (~03/31/22) H/O left breast biopsy History of appendectomy Family History Father Past heart attack CVD (cardiovascular disease) Mother Hypertension Lung cancer Sister Breast cancer Brother Diabetes Maternal Aunt Diabetes Paternal Aunt Ovarian cancer Social History Household Members: Family Housing: House Are you a primary healthcare recruiter to a significant other at home: No Do you presently have visiting nurse or other home services: No Alcohol intake: current Alcohol intake frequency: holidays/special occasions only Patient Tobacco Use Status: Former Tobacco user e-Cigarette/Vaping Use: Never Used Second Hand Smoke Exposure: Yes service: No Current occupational status: retired Cognitive needs: No Hearing needs: No Vision needs: Yes Questionnaire PHQ-9 Over the last 2 weeks, how often have you been bothered by any of the following problems? 1. Little interest or pleasure in doing things: not at all 2. Feeling down, depressed, or hopeless: not at all 3. Trouble falling or staying asleep, or sleeping too much: not at all 4. Feeling tired or having little energy: not at all 5. Poor appetite or overeating: not at all 6. Feeling bad about yourself - or that you are a failure or have let yourself or your family down: not at all 7. Trouble concentrating on things, such as reading the newspaper or watching television: not at all 8. Moving or speaking so slowly that other people could have noticed. Or the opposite - being so fidgety or restless that you have been moving around a lot more than usual: not at all 9. Thoughts that you would be better off or of hurting yourself in some way: not at all Total score: 0 Depression Screening Interpretation: Negative Depression Screening Done: Yes [id number] - PHQ-9 Billing: Yes Source: Developed by Drs. Avery Hathaway, Shaniqua Ca, Nacho Contreras and colleagues, with an educational dayan from [employer]. Thrive Questionnaire Date Thrive assessed: 06/27/23 I am a: Patient What is your living situation today?: I have a steady place to live Within the past 12 months, did the food you bought not last and you didn't have the money to get more?: Never true Within the past 12 months, did you worry whether your food would run out before you got money to buy more?: Never true Do you have trouble paying for medicines?: No Do you have trouble getting transportation to medical appointments?: No Do you have trouble paying your heating and electricity bill?: No Do you have trouble taking care of your child, family member or friend?: No Do you have trouble with day-to-day activities such as bathing, preparing meals, shopping, managing finances, etc.?: No Are you currently unemployed and looking for a job?: No Are you interested in more education?: No Please select the resources that you would like help with: None Currently or been in a relationship where the following occur: no concerns reported AUDIT C Alcohol Use Questionnaire (AUDIT-C) 1. How often do you have a drink containing alcohol?: Never 2. How many drinks containing alcohol do you have on a typical day when you are drinking?: 1 or 2 3. How often do you have six or more drinks on one occasion?: Never Total Score: 0 Score Reviewed/Action Taken: Yes JUDD-7 AMB Questionnaire JUDD-7 Date JUDD - 7 assessed: 06/27/23 Feeling nervous, anxious, or on edge: 0 = Not at all Not being able to stop or control worryin = Not at all Worrying too much about different things: 0 = Not at all Trouble relaxin = Not at all Being so restless that it is hard to sit still: 0 = Not at all Becoming easily annoyed or irritable: 0 = Not at all Feeling afraid as if something awful might happen: 0 = Not at all Total JUDD-7 score (0-4 normal; 5-9 mild; 10-14 moderate; 15-21 severe): 0 Source: Developed by Drs. Avery Hathaway, Shaniqua Ca, Nacho Contreras and colleagues, with an educational dayan from [employer]. Review of Systems Const Denies chills, Denies fatigue, Denies fever(s) and Denies headache(s) Eyes Denies blurry vision, Denies change in vision, Denies irritation and Denies itchy eyes ENT Denies dysphagia, Denies dizziness, Denies otalgia, Denies headache(s), Reports neck pain, Denies odynophagia and Denies sore throat Card Denies chest pain, Denies palpitations and Denies dyspnea Resp Denies cough, Denies dyspnea and Denies wheezing GI Denies abdominal pain, Denies constipation, Denies dysphagia, Denies heartburn, Denies diarrhea, Denies nausea, Denies odynophagia and Denies vomiting Denies difficulty voiding, Denies nocturia, Denies dysuria (but (+) burning sensation on urination lately) and Reports urinary urgency Musc Details: (+) chronic pain over the left foot; increased pain over the right big toe Reports back pain (increasing), Reports arthralgias (over both knees), Reports neck pain and Reports stiffness Skin/Breast Denies rash Neuro Denies dizziness and Denies headache(s) Psych Denies anxiety and Denies depression Endo Denies fatigue and Denies palpitations Salvador/Lymph Denies easy bruising Aller/Immun Denies itchy eyes and Denies wheezing Physical exam (Primary Care) Vital Signs: Last Vital Signs Pulse 80 06/27/23 09:26 BP 122/80 06/27/23 09:26 Pulse Ox 98 06/27/23 09:26 Oxygen Delivery Method Room Air 06/27/23 09:26 BMI result Body Mass Index 29.7 Tobacco/Smoking Status: Tobacco use Status Tobacco use date assessed 06/27/23 06/27/23 09:29 Patient Tobacco Use Status Former Tobacco user 06/27/23 09:29 e-Cigarette/Vaping Use Never Used 06/27/23 09:29 PHQ-9: PHQ-9 Score PHQ-9: Total score 0 06/27/23 10:24 Depression Screening Interpretation: Negative Thrive Assessment: Date of Thrive Assessment Date Thrive assessed 06/27/23 06/27/23 09:29 Currently or been in a relationship where the following occur: no concerns reported Const General: no acute distress and alert Orientation/consciousness: patient oriented x3 HENMT Head: Yes normocephalic and Yes atraumatic Ears: TM's normal bilaterally and EAC's normal General nose exam: No nasal discharge present Face and sinus: Yes normal facial exam and Yes sinuses nontender Teeth and gingiva: dentition normal Throat: Yes posterior oropharynx normal and Yes tonsils normal (no TP congestion noted) Eyes Eyelids: Yes eyelids normal Conjunctivae: conjunctivae normal Pupils: Equal, round and reactive pupils present EOM: EOMs intact bilaterally Neck Neck: Yes no lymphadenopathy and Yes supple Thyroid: Thyroid normal Resp Auscultation: clear to auscultation bilaterally, no rales and no wheezes Cardio Rate: regular rate Rhythm: regular rhythm Heart sounds: no murmurs GI Palpation (GI): Soft to palpation and nontender Auscultation: normal bowel sounds General: Yes no CVA tenderness Back/Spine/Pelvis Back: no CVA tenderness Cervical Spine: Cervical spine tenderness Thoracic/Lumbar Spine: lumbar spinal tenderness Skin Lesions: no lesions Rashes: no rashes Neuro General: patient oriented x3, moves all extremities, no focal motor deficits and CN's II-XI intact bilaterally Cranial nerves: Yes Equal, round and reactive pupils present Cognition (Neuro): normal cognition Gait exam (Neuro): Normal gait present Extrem General: Yes no clubbing, cyanosis or edema Right lower extremity: knee Details: tenderness; no swelling and foot Details: tenderness Location: of the great toe Left lower extremity: knee Details: tenderness; no swelling and foot Details: tenderness Location: of the calcaneus Office Procedures Flu Questionnaire Does the patient have a severe egg allergy?: No Immunizations flu vacc [id number] 6mos up(PF) 60 mcg(15 mcgx4)/0.5 mL IM syringe Performing Provider: Tarik Salguero MD [facility] Documented (not given) by: Tereza Forde on 06/27/23 10:34 Reason Not Given: Not Given Results Reviewed Results Reviewed: Laboratory Tests 06/24/23 06/24/23 06/24/23 16:40 16:40 16:50 WBC 4.0 L Hgb 13.5 Hct 41.4 Plt Count 306 Sodium 142 Potassium 4.2 Creatinine 0.85 Estimated GFR > 60 Fasting Glucose 99 Hemoglobin A1c % 5.6 Calcium 9.6 AST 20 ALT 17 Triglycerides 159 H Cholesterol 195 LDL Cholesterol, Calc 110 H HDL Cholesterol 54 Vitamin B12 > 2000 H 25-OH Vitamin D Total 40.7 TSH 2.79 Ur Specific [place] 1.010 Urine Protein 30 (1+) H Urine Glucose (UA) Negative Urine Blood Negative Assessment and Plan Assessment & Plan (1) Annual physical exam: Code(s): Z00.00 - Encounter for general adult medical examination without abnormal findings Plan: Results of her labs done a few days ago reviewed and discussed with patient She no longer keeps up with her annual pap smear and soap drier tender exam (based on her age); states that she has never had an abnormal pap smear in the past She is up-to-date with her annual mammogram and screening colonoscopy She will be sent for BMD for osteoporosis screening (2) Pure hypercholesterolemia: Code(s): E78.00 - Pure hypercholesterolemia, unspecified Plan: Advised that her serum triglyceride level has improved significantly from previous Reinforced low cholesterol diet Continue Atorvastatin 10 mg QD Will recheck her labs and fasting lipids in 3 months for follow-up (3) Benign essential hypertension: Code(s): I10 - Essential (primary) hypertension Plan: Reinforced low-sodium diet - goal is systolic BP of at least 130 to 140 mm or less Continue Atenolol 25 mg QD (4) Impaired fasting glucose: Code(s): R73.01 - Impaired fasting glucose Plan: HgbA1c remains normal at 5.6% on her labs done a few days ago Reinforced low calorie diet / exercise as tolerated (5) Exertional dyspnea: Code(s): R06.00 - Dyspnea, unspecified Plan: This has been ongoing for a few years now and is mostly unchanged; is most likely multifactorial, including due to physical decompensation - patient feels that this has been stable lately and improving slowly Lexiscan stress test and myocardial perfusion scan done on 12/11/2018 to check out her symptoms back then were normal (6) Leukopenia: Code(s): D72.819 - Decreased white blood cell count, unspecified Qualifiers: Leukopenia type: unspecified Qualified Code(s): D72.819 - Decreased white blood cell count, unspecified Plan: Stable - follow-up with hematology/oncology as scheduled Will continue to monitor her CBC regularly (7) Vitamin D deficiency: Code(s): E55.9 - Vitamin D deficiency, unspecified Plan: Corrected - continue Vitamin D3 1000 units QD (8) Vitamin B12 deficiency: Code(s): E53.8 - Deficiency of other specified B group vitamins Plan: Corrected; is advised that her B12 level is still significantly elevated at over 2000 States that she is still receiving B12 injections from Dr. Knight every 3 months Have advised patient to try stopping her oral Vitamin B12 supplements supplements for now and we will recheck her B12 level in 3 months for follow up Follow up with hematology as scheduled (9) Primary osteoarthritis of knees, bilateral: Code(s): M17.0 - Bilateral primary osteoarthritis of knee Plan: Most likely due to osteoarthritis; x-rays of both knees done last year revealed (+) OA changes bilaterally Follow up with [facility] as scheduled (10) Lumbar degenerative disc disease: Code(s): M51.36 - Other intervertebral disc degeneration, lumbar region Plan: Reinforced activity and weight lifting restrictions Repeat lumbar spine x-rays done back in February 2022 revealed degenerative disc changes L2-L3 and L3-L4 disc levels with ventral spondylosis. Grade 1 retrolisthesis L3 over L4 and L2 over L3. No acute fractures seen Continue Oxycodone-Acetaminophen 5-325 mg 1 tablet every 8 hours PRN for pain - Rx refilled Has been seeing Dr. Domínguez at [facility] for pain management - to continue following up with pain management as scheduled (11) Left foot pain: Code(s): M79.672 - Pain in left foot Plan: She has received cortisone injection into her left heel area previously, with (+) relief of her symptoms Per request, she was referred back to [facility] for further evaluation and management of her left foot issues a few months ago but she has not yet been able to schedule her appt - states that she has Dr. Morgan' number and will call his office to schedule her appt JOCELYNE (12) Cervical spondylosis: Code(s): M47.812 - Spondylosis without myelopathy or radiculopathy, cervical region Plan: States that current medications are helping with her chronic neck pain (13) Fibromyalgia: Code(s): M79.7 - Fibromyalgia Plan: Encouraged again to continue with regular exercise and physical activity to help manage her fibromyalgia symptoms (14) GERD (gastroesophageal reflux disease): Code(s): K21.9 - Gastro-esophageal reflux disease without esophagitis Qualifiers: Esophagitis presence: without esophagitis Qualified Code(s): K21.9 - Gastro-esophageal reflux disease without esophagitis Plan: Dietary restrictions reinforced Continue Omeprazole 20 mg QD (15) Serum total bilirubin elevated: Code(s): R17 - Unspecified jaundice Plan: Abdominal US done on 01/12/2017 was normal; serum transaminases remain normal on her recent labs and patient is asymptomatic Will continue to monitor her serum bilirubin level regularly - will consider repeat abdominal ultrasound if her serum bilirubin level remains significantly elevated at her next follow-up visits (16) Anxiety: Code(s): F41.9 - Anxiety disorder, unspecified Plan: Continue Lorazepam 0.5 mg 2 to 3 times a day as needed (17) Depression: Code(s): F32.9 - Major depressive disorder, single episode, unspecified Qualifiers: Depression Type: unspecified Qualified Code(s): F32.9 - Major depressive disorder, single episode, unspecified Plan: Continue Paroxetine 20 mg QD and Amitriptyline 50 mg Q HS Follow up with psychiatry as scheduled (18) Overweight (BMI 25.0-29.9): Code(s): E66.3 - Overweight Plan: Reinforced diet/exercise as tolerated/ lose weight (19) Osteoporosis screening: Code(s): Z13.820 - Encounter for screening for osteoporosis Plan: We have assumed that since patient goes to [facility] for her annual mammogram and was going there as well for her pap smear and gynecology exam previously that she's had her BMD done there but surprisingly, she states that she does not ever recall getting a BMD done in the past Will send her now for BMD for osteoporosis screening and unless we can locate a previous BMD, this will serve as her index screen Plan Follow up in 3 months Orders: Orders XR DEXA axial skeleton Today Z78.0 - Asymptomatic menopausal state UA CC w/rflx Micro + Cult 3 Months R30.0 - Dysuria Vitamin B12 and Folate 3 Months E53.8 - Deficiency of other specified B group vitamins Influenza [id number] Immunization Today Z23 - Encounter for immunization Hemoglobin A1c 3 Months E11.9 - Type 2 diabetes mellitus without complications Complete Blood Count Auto Diff 3 Months I10 - Essential (primary) hypertension Comprehensive [place]. Panel Fast 3 Months E78.00 - Pure hypercholesterolemia, unspecified Lipid Panel 3 Months E78.00 - Pure hypercholesterolemia, unspecified Vitamin D 25-OH Total 3 Months E55.9 - Vitamin D deficiency, unspecified Coding Level of Care Code Est Pt Prev Care >65y(23542) Diagnoses Annual physical exam Z00.00 Pure hypercholesterolemia E78.00 Benign essential hypertension I10 Impaired fasting glucose R73.01 Exertional dyspnea R06.00 Leukopenia, unspecified type D72.819 Leukopenia type: unspecified Vitamin D deficiency E55.9 Vitamin B12 deficiency E53.8 Primary osteoarthritis of knees, bilateral M17.0 Lumbar degenerative disc disease M51.36 Left foot pain M79.672 Cervical spondylosis M47.812 Fibromyalgia M79.7 Gastroesophageal reflux disease without esophagitis K21.9 Esophagitis presence: without esophagitis Serum total bilirubin elevated R17 Anxiety F41.9 Depression, unspecified depression type F32.9 Depression Type: unspecified Overweight (BMI 25.0-29.9) E66.3 Osteoporosis screening Z13.820
[2023-06-27 09:26] VITALS: BP 122/80; PULSE 80; O2SAT 98; BMI 29.7
== END 2023-06-27 10:39 | disposition home or self-care (01) ==
PROVIDERS: PCP Internal Medicine; Visit Provider Internal Medicine
DX: Z00.00 Encounter for general adult medical examination without abnormal findings (principal); E78.00 Pure hypercholesterolemia, unspecified; I10 Essential (primary) hypertension; R73.01 Impaired fasting glucose; R06.00 Dyspnea, unspecified; D72.819 Decreased white blood cell count, unspecified; E55.9 Vitamin D deficiency, unspecified; E53.8 Deficiency of other specified B group vitamins; M17.0 Bilateral primary osteoarthritis of knee; M51.36 Other intervertebral disc degeneration, lumbar region; M79.672 Pain in left foot; M47.812 Spondylosis without myelopathy or radiculopathy, cervical region
CPT/HCPCS: 99397

== ENCOUNTER 2023-07-21 08:12 | Outpatient (REF) | payer MEDICARE, SELFPAY ==
--- NOTE | ~2023-07-21 | MM_ITS ---
EXAMINATION: BONE DENSITOMETRY CLINICAL INDICATION: Asymptomatic menopausal state. COMPARISON: This is the patient's baseline examination. TECHNIQUE: Using a [employer] DXA System (software version: 13.1) manufactured by [employer], dual-energy x-ray absorptiometry was performed of the lumbar spine, left hip and left forearm radius 33%. The images are of good technical quality. Summary results are attached. FINDINGS: LEFT FEMUR, NECK: BMD 1.024 g/cm2, Z-score 1.2, T-score -0.1, normal. LEFT FEMUR, TOTAL: BMD 1.098 g/cm2, Z-score 1.7, T-score 0.7, normal. AP SPINE L1-L4 (excluding L3): The data of L1-L4 has been changed to exclude the L3 vertebral body, because degenerative sclerosis at this level may cause overestimation of lumbar spine density. BMD 1.476 g/cm2, Z-score 3.6, T-score 2.6, normal. LEFT FOREARM RADIUS 33%: BMD 0.984 g/cm2, Z-score 2.9, T-score 1.2, normal. IDENTIFIED RISK FACTORS: Low calcium intake, menopause. HISTORY OF FRACTURE: None listed. MEDICATIONS: Vitamin D. MM/XR DEXA axial skeleton IMPRESSION: 1. DIAGNOSIS: Normal bone density based on the lowest T-score value of -0.1 in the femoral neck applying World Health Organization criteria. 2. 10-YEAR FRACTURE RISK PREDICTION, FRAX: According to the guidelines, FRAX calculation should only be performed on patients in the osteopenia bone density category. Therefore, FRAX was not performed on this patient. 3. Treatment Recommendations: NOF guidelines recommend consideration for treatment in postmenopausal women and men age 50 and older presenting with the following: -A hip or vertebral (clinical or morphometric) fracture. -T-score less than or equal to -2.5 at the femoral neck or spine after appropriate evaluation to exclude secondary causes. -Low bone mass at the hip or spine and a 10-year fracture probability by FRAX of greater than or equal to 3% for hip fracture or greater than or equal to 20% for major osteoporotic fracture based on the [place] adapted WHO algorithm. 4. Other Recommendations: All treatment decisions require clinical judgment and consideration of individual patient factors, including patient preferences, comorbidities, previous drug use, risk factors not captured in the FRAX model (e.g. frailty, falls, vitamin D deficiency, increased bone turnover, interval significant decline in bone density) and possible under or overestimation of fracture risk by FRAX. FUTURE SCAN RECOMMENDATION: People with diagnosed cases of osteoporosis or at high risk for fracture should have regular bone mineral density tests. For patients eligible for Medicare, routine testing is allowed once every 2 years. The testing frequency can be increased to one year for patients who have rapidly progressing disease, those who are receiving or discontinuing medical therapy to restore bone mass, or have additional risk factors.
== END 2023-07-21 08:13 | disposition home or self-care (01) ==
LOC: HO.MAMMO 08:12
PROVIDERS: Visit Provider Internal Medicine
DX: Z13.820 Encounter for screening for osteoporosis (principal); Z78.0 Asymptomatic menopausal state
CPT/HCPCS: 77080

== ENCOUNTER 2023-09-28 12:56 | Outpatient (REF) | payer MEDICARE, SELFPAY ==
[2023-09-28 13:12] LABS: MANUAL DIFF FLAG NO
[2023-09-28 13:46] LABS: Basophils Percent Auto 0.3 % (0-2); Eosinophils Absolute Auto 0.3 X10*3/uL (0.0-0.4); Eosinophils Percent Auto 6.5 % (0-4); Hematocrit 40.7 % (37.0-47.0); Hemoglobin 13.3 g/dl (12.0-16.0); Imm Gran Abs Auto 0.02 X10*3/uL (0.00-0.03); Imm Gran Pct Auto 0.5 % (0.0-0.4); Lymphocytes Absolute Auto 1.5 X10*3/uL (1.2-4.9); Lymphocytes Percent Auto 37.1 % (20-40); Mean Corpuscular HGB Conc 32.7 g/dl (31.0-35.0); Mean Corpuscular Hemoglobin 31.5 pg (27.0-33.0); Mean Corpuscular Volume 96.4 fL (80.0-98.0); Mean Platelet Volume 10.2 fL (9.4-12.3); Monocytes Absolute Auto 0.3 X10*3/uL (0.1-1.2); Neutrophils Absolute Auto 1.9 x10*3/uL (2.0-8.3); Neutrophils Percent Auto 47.6 % (45-73); Platelet Count 288 X10*3/uL (160-400); Red Blood Count 4.22 X10*6/uL (4.20-5.50); Red Cell Distribution Width 12.8 % (11.0-16.0)
[2023-09-28 14:02] LABS: Estimated Average Glucose 111 mg/dL; Hemoglobin A1C 127.9994 umol/L; Hemoglobin A1c % 5.5 % (<6.0)
[2023-09-28 14:19] LABS: Alanine Aminotransferase 13 U/L (0-31); Albumin Level 4.5 g/dL (3.5-5.0); Alkaline Phosphatase 79 U/L (39-117); Anion Gap 14 (12-20); Aspartate Amino Transferase 16 U/L (5-31); Bilirubin Total 1.5 mg/dL (0.0-1.0); Blood Urea Nitrogen 10 mg/dL (9-16); Calcium 9.3 mg/dL (8.4-10.2); Carbon Dioxide 28 mmol/L (22-29); Chloride 103 mmol/L (96-108); Cholesterol 187 mg/dL (<200); Estimated Glomerular Filt Rate 54; Glucose Fasting 115 mg/dL (60-99); HDL Cholesterol 48 mg/dL (>40); LDL Cholesterol Calculated 111 mg/dL (<100); Potassium 3.9 mmol/L (3.3-5.1); Sodium 141 mmol/L (135-145); Total Protein 7.5 g/dL (6.5-8.0); Triglycerides 143 mg/dL (<150)
[2023-09-28 14:36] LABS: Vitamin D 25-OH Total 33.9 ng/mL (>30)
[2023-09-28 14:50] LABS: Appearance Urine Turbid; Color Urine Dark Yellow; Glucose Urine UA Negative (Negative); Leukocyte Esterase Urine Moderate (2+) (Negative); Nitrite Urine Negative (Negative); PH 5.5 (5.0-9.0); UMIC TRIGGER UACC YES; Urine Blood Negative (Negative); Urine Ketones Trace mg/dL (Negative); Urine Protein Trace mg/dL (Neg-Trace)
[2023-09-28 14:53] LABS: Bacteria Urine 4+ (None Seen); Hyaline Casts Urine 0-2 /LPF (0-2); Squamous Epithelial Cell Urine >20 /HPF (0-2); UACC Culture Trigger YES; WBC Urine 21-50 /HPF (0-5)
[2023-09-28 15:49] LABS: Folate 16.5 ng/mL (> or = 4.0); Vitamin B12 1010 pg/mL (200-900)
== END 2023-09-28 12:57 | disposition home or self-care (01) ==
LOC: HO.LAB 12:56
PROVIDERS: PCP Internal Medicine; Visit Provider Internal Medicine
DX: E11.9 Type 2 diabetes mellitus without complications (principal); R30.0 Dysuria; E55.9 Vitamin D deficiency, unspecified; E53.8 Deficiency of other specified B group vitamins; E78.00 Pure hypercholesterolemia, unspecified; I10 Essential (primary) hypertension
CPT/HCPCS: 36415; 80053; 80061; 81001; 82306; 82607; 82746; 83036; 85025; 87086

== ENCOUNTER 2023-10-03 10:57 | Outpatient (AMB) | payer MEDICARE, SELFPAY ==
[2023-10-03 10:57] VITALS: BP 138/86; PULSE 77; O2SAT 98; BMI 28.7
--- NOTE | 2023-10-03 10:57 | A.OFFPC_ITS ---
Vital Signs 10/03/23 10:57 Height 5 ft 6 in Weight 178 lb 2 oz BMI 28.7 BP 138/86 Blood Pressure Location Lt brachial Position Sitting Pulse 77 Pulse Source Pulse Oximeter Pulse Oximetry (%) 98 Oxygen Delivery Method Room Air Intake Visit Reasons: 3mth f/u Media Buyer Required: No Accompanied by: Self / Same As Patient Allergies levofloxacin [From LEVAQUIN] Adverse Reaction (Mild, Verified 10/03/23 11:41) TENDONITIS, JOINT PAIN Medication List - Last Reconciled 10/03/23 by Tarik Salguero MD amitriptyline 50 mg PO BEDTIME 90 days ascorbic acid (vitamin C) 100 mg PO DAILY atenolol 50 mg PO DAILY atorvastatin 10 mg PO DAILY cholecalciferol (vitamin D3) (Vitamin D3) 25 mcg PO DAILY cyanocobalamin (vitamin B-12) 1,000 mcg PO DAILY diclofenac sodium 75 mg PO BID PRN folic acid 1 tab PO DAILY loratadine (Claritin) 10 mg PO DAILY lorazepam 0.5 mg PO TID PRN 90 days magnesium 250 mg PO DAILY omeprazole 20 mg PO DAILY 90 days oxycodone-acetaminophen 7.5-325 mg 1 tab PO Q8H PRN 30 days paroxetine HCl 20 mg PO QAM Tobacco use date assessed: 10/03/23 Fall risk assessment: No Falls in past year Last assessed Fall Risk: 10/03/23 Dental Screening Dental Screen Date: 10/03/23 Did you have a dental visit in the last 12 months?: Yes Did you have a dental problem in the last 6 months where you did not have access to dental care?: No Was dental information given to patient?: Patient has dentist HPI 3mth f/u HPI Details Patient comes in today for her follow up visit States that she feels okay She denies any headaches or dizziness Denies any chest pains, no SOB No nausea/vomiting, no abdominal pain No change in bowel habits noted She has been experiencing increased urinary urgency and some frequency lately; also notes (+) mild dysuria at times States that her chronic low back pain, neck pain and joint pains remain adequately controlled on her current Rx Needs a couple of her Rx refilled, including her pain med Rx Had her follow up labs done a few days ago - to discuss her results [facility] Medical History Serum total bilirubin elevated Overweight (BMI 25.0-29.9) Depression Anxiety Osteoarthritis of knees, bilateral Cervical spondylosis Lumbar degenerative disc disease Fibromyalgia Vitamin D deficiency Leukopenia Exertional dyspnea Impaired fasting glucose Benign essential hypertension Pure hypercholesterolemia Surgical History S/P colonoscopy (~03/31/22) H/O left breast biopsy History of appendectomy Family History Father Past heart attack CVD (cardiovascular disease) Mother Hypertension Lung cancer Sister Breast cancer Brother Diabetes Maternal Aunt Diabetes Paternal Aunt Ovarian cancer Social History Household Members: Family Housing: House Are you a primary interior plant caretaker to a significant other at home: No Do you presently have visiting nurse or other home services: No Alcohol intake: current Alcohol intake frequency: holidays/special occasions only Patient Tobacco Use Status: Former Tobacco user e-Cigarette/Vaping Use: Never Used Second Hand Smoke Exposure: Yes service: No Current occupational status: retired Cognitive needs: No Hearing needs: No Vision needs: Yes Questionnaire PHQ-9 Over the last 2 weeks, how often have you been bothered by any of the following problems? 1. Little interest or pleasure in doing things: not at all 2. Feeling down, depressed, or hopeless: not at all 3. Trouble falling or staying asleep, or sleeping too much: not at all 4. Feeling tired or having little energy: not at all 5. Poor appetite or overeating: not at all 6. Feeling bad about yourself - or that you are a failure or have let yourself or your family down: not at all 7. Trouble concentrating on things, such as reading the newspaper or watching television: not at all 8. Moving or speaking so slowly that other people could have noticed. Or the opposite - being so fidgety or restless that you have been moving around a lot more than usual: not at all 9. Thoughts that you would be better off or of hurting yourself in some way: not at all Total score: 0 Depression Screening Interpretation: Negative Depression Screening Done: Yes 46609 - PHQ-9 Billing: Yes Source: Developed by Drs. Avery Hathaway, Shaniqua Ca, Nacho Contreras and colleagues, with an educational dayan from [employer]. Thrive Questionnaire Date Thrive assessed: 10/03/23 I am a: Patient What is your living situation today?: I have a steady place to live Within the past 12 months, did the food you bought not last and you didn't have the money to get more?: Never true Within the past 12 months, did you worry whether your food would run out before you got money to buy more?: Never true Do you have trouble paying for medicines?: No Do you have trouble getting transportation to medical appointments?: No Do you have trouble paying your heating and electricity bill?: No Do you have trouble taking care of your child, family member or friend?: No Do you have trouble with day-to-day activities such as bathing, preparing meals, shopping, managing finances, etc.?: No Are you currently unemployed and looking for a job?: No Are you interested in more education?: No Please select the resources that you would like help with: None Currently or been in a relationship where the following occur: no concerns reported AUDIT C Alcohol Use Questionnaire (AUDIT-C) 1. How often do you have a drink containing alcohol?: Never 2. How many drinks containing alcohol do you have on a typical day when you are drinking?: 1 or 2 3. How often do you have six or more drinks on one occasion?: Never Total Score: 0 Score Reviewed/Action Taken: Yes JUDD-7 AMB Questionnaire JUDD-7 Date JUDD - 7 assessed: 10/03/23 Feeling nervous, anxious, or on edge: 0 = Not at all Not being able to stop or control worryin = Not at all Worrying too much about different things: 0 = Not at all Trouble relaxin = Not at all Being so restless that it is hard to sit still: 0 = Not at all Becoming easily annoyed or irritable: 0 = Not at all Feeling afraid as if something awful might happen: 0 = Not at all Total JUDD-7 score (0-4 normal; 5-9 mild; 10-14 moderate; 15-21 severe): 0 Source: Developed by Drs. Avery Hathaway, Shaniqua Ca, Nacho Contreras and colleagues, with an educational dayan from [employer]. Review of Systems Const Denies chills, Denies fatigue, Denies fever(s) and Denies headache(s) ENT Denies dysphagia, Denies dizziness, Denies otalgia, Denies headache(s), Reports neck pain, Denies odynophagia and Denies sore throat Card Denies chest pain, Denies palpitations and Denies dyspnea Resp Denies cough, Denies dyspnea and Denies wheezing GI Denies abdominal pain, Denies constipation, Denies dysphagia, Denies heartburn, Denies diarrhea, Denies nausea, Denies odynophagia and Denies vomiting Denies difficulty voiding, Denies nocturia, Denies dysuria (but (+) burning sensation on urination lately) and Reports urinary urgency Musc Details: (+) chronic pain over the left foot and over the right big toe Reports back pain (increasing), Reports arthralgias (over both knees), Reports neck pain and Reports stiffness Skin/Breast Denies rash Neuro Denies dizziness and Denies headache(s) Psych Denies anxiety and Denies depression Endo Denies fatigue and Denies palpitations [place]/Lymph Denies easy bruising Aller/Immun Denies wheezing Physical exam (Primary Care) Vital Signs: Last Vital Signs Pulse 77 10/03/23 10:57 BP 138/86 10/03/23 10:57 Pulse Ox 98 10/03/23 10:57 Oxygen Delivery Method Room Air 10/03/23 10:57 BMI result Body Mass Index 28.7 Tobacco/Smoking Status: Tobacco use Status Tobacco use date assessed 10/03/23 10/03/23 11:00 Patient Tobacco Use Status Former Tobacco user 10/03/23 11:00 e-Cigarette/Vaping Use Never Used 10/03/23 11:00 PHQ-9: PHQ-9 Score PHQ-9: Total score 0 10/03/23 11:43 Depression Screening Interpretation: Negative Thrive Assessment: Date of Thrive Assessment Date Thrive assessed 10/03/23 10/03/23 11:00 Currently or been in a relationship where the following occur: no concerns reported Const General: no acute distress and alert HENMT Ears: TM's normal bilaterally and EAC's normal Throat: Yes posterior oropharynx normal and Yes tonsils normal (no TP congestion noted) Neck Neck: Yes no lymphadenopathy and Yes supple Thyroid: Thyroid normal Resp Auscultation: clear to auscultation bilaterally, no rales and no wheezes Cardio Rate: regular rate Rhythm: regular rhythm Heart sounds: no murmurs GI Palpation (GI): Soft to palpation and nontender Auscultation: normal bowel sounds General: Yes no CVA tenderness Back/Spine/Pelvis Back: no CVA tenderness Cervical Spine: Cervical spine tenderness Thoracic/Lumbar Spine: lumbar spinal tenderness Skin Rashes: no rashes Extrem General: Yes no clubbing, cyanosis or edema Right lower extremity: knee Details: tenderness; no swelling and foot Details: tenderness Location: of the great toe Left lower extremity: knee Details: tenderness; no swelling and foot Details: tenderness Location: of the calcaneus Results Reviewed Results Reviewed: Laboratory Tests 09/28/23 09/28/23 09/28/23 13:11 13:11 13:11 WBC 4.0 L Hgb 13.3 Hct 40.7 Plt Count 288 Sodium 141 Potassium 3.9 Creatinine 1.02 Estimated GFR 54 Fasting Glucose 115 H Hemoglobin A1c % 5.5 Calcium 9.3 Total Bilirubin 1.5 H AST 16 ALT 13 Triglycerides 143 Cholesterol 187 LDL Cholesterol, Calc 111 H HDL Cholesterol 48 Vitamin B12 1010 H 25-OH Vitamin D Total 33.9 Ur Specific [place] Urine Protein Urine Glucose (UA) Urine Blood Urine Nitrite Ur Leukocyte Esterase 09/28/23 09/28/23 13:15 13:15 WBC Hgb Hct Plt Count Sodium Potassium Creatinine Estimated GFR Fasting Glucose Hemoglobin A1c % Calcium Total Bilirubin AST ALT Triglycerides Cholesterol LDL Cholesterol, Calc HDL Cholesterol Vitamin B12 25-OH Vitamin D Total Ur Specific [place] 1.020 Urine Protein Trace Urine Glucose (UA) Negative Urine Blood Negative Urine Nitrite Negative Ur Leukocyte Esterase Moderate (2+) H Assessment and Plan Assessment & Plan (1) Pure hypercholesterolemia: Code(s): E78.00 - Pure hypercholesterolemia, unspecified Plan: Results of her labs done a few days ago reviewed and discussed with patient Reinforced low cholesterol diet Continue Atorvastatin 10 mg QD Will recheck her labs and fasting lipids in 3 months for follow-up (2) Benign essential hypertension: Code(s): I10 - Essential (primary) hypertension Plan: Reinforced low-sodium diet - goal is systolic BP of at least 130 to 140 mm or less Continue Atenolol 25 mg QD (3) Impaired fasting glucose: Code(s): R73.01 - Impaired fasting glucose Plan: HgbA1c remains normal at 5.5% on her labs done a few days ago Reinforced low calorie diet / exercise as tolerated (4) Exertional dyspnea: Code(s): R06.00 - Dyspnea, unspecified Plan: This has been ongoing for a few years now and is mostly unchanged; is most likely multifactorial, including due to physical decompensation - patient feels that this has been stable lately and have not progressed at all over the past year Lexiscan stress test and myocardial perfusion scan done on 12/11/2018 to check out her symptoms back then were normal (5) Leukopenia: Code(s): D72.819 - Decreased white blood cell count, unspecified Qualifiers: Leukopenia type: unspecified Qualified Code(s): D72.819 - Decreased white blood cell count, unspecified Plan: Stable - follow-up with hematology/oncology as scheduled Will continue to monitor her CBC regularly (6) Vitamin D deficiency: Code(s): E55.9 - Vitamin D deficiency, unspecified Plan: Continue Vitamin D3 1000 units QD (7) Vitamin B12 deficiency: Code(s): E53.8 - Deficiency of other specified B group vitamins Plan: Corrected She continues to receive B12 injections from Dr. Knight every 3 months She was previously advised patient to stop taking her oral Vitamin B12 supplements as her B12 level was very high at over 2000 pg/ml but this has since dropped down to 1010 pg/ml on her recent labs Follow up with hematology as scheduled (8) Primary osteoarthritis of knees, bilateral: Code(s): M17.0 - Bilateral primary osteoarthritis of knee Plan: Most likely due to osteoarthritis; x-rays of both knees done a couple of years ago revealed (+) OA changes bilaterally Follow up with [facility] as scheduled (9) Lumbar degenerative disc disease: Code(s): M51.36 - Other intervertebral disc degeneration, lumbar region Plan: Reinforced activity and weight lifting restrictions Repeat lumbar spine x-rays done back in February 2022 revealed degenerative disc changes L2-L3 and L3-L4 disc levels with ventral spondylosis. Grade 1 retrolisthesis L3 over L4 and L2 over L3. No acute fractures seen Continue Oxycodone-Acetaminophen 5-325 mg 1 tablet every 8 hours PRN for pain - Rx refilled Has been seeing Dr. Domínguez at [facility] for pain management - to continue following up with pain management as scheduled (10) Cervical spondylosis: Code(s): M47.812 - Spondylosis without myelopathy or radiculopathy, cervical region Plan: States that current medications are helping with her chronic neck pain (11) Left foot pain: Code(s): M79.672 - Pain in left foot Plan: She has received cortisone injection into her left heel area previously, with (+) relief of her symptoms Follow up with Dr. Morgan at [facility] as scheduled (12) Fibromyalgia: Code(s): M79.7 - Fibromyalgia Plan: Encouraged again to continue with regular exercise and physical activity to help manage her fibromyalgia symptoms (13) GERD (gastroesophageal reflux disease): Code(s): K21.9 - Gastro-esophageal reflux disease without esophagitis Qualifiers: Esophagitis presence: without esophagitis Qualified Code(s): K21.9 - Gastro-esophageal reflux disease without esophagitis Plan: Dietary restrictions reinforced Continue Omeprazole 20 mg QD (14) Serum total bilirubin elevated: Code(s): R17 - Unspecified jaundice Plan: (?) Gilbert's Syndrome Abdominal US done on 01/12/2017 was normal; serum transaminases remain normal on her recent labs and patient is asymptomatic Will continue to monitor her serum bilirubin level regularly - will consider repeat abdominal ultrasound if her serum bilirubin level remains significantly elevated at her next follow-up visits (15) Anxiety: Code(s): F41.9 - Anxiety disorder, unspecified Plan: Continue Lorazepam 0.5 mg 2 to 3 times a day as needed (16) Depression: Code(s): F32.9 - Major depressive disorder, single episode, unspecified Qualifiers: Depression Type: unspecified Qualified Code(s): F32.9 - Major depressive disorder, single episode, unspecified Plan: Continue Paroxetine 20 mg QD and Amitriptyline 50 mg Q HS Follow up with psychiatry as scheduled (17) Overweight (BMI 25.0-29.9): Code(s): E66.3 - Overweight Plan: Reinforced diet/exercise as tolerated/ lose weight (18) Osteoporosis screening: Code(s): Z13.820 - Encounter for screening for osteoporosis Plan: She is advised that her BMD done on 07/21/2023 came out normal As we are unable to locate any previous BMD report, this will serve as her index screen and we will recheck her BMD in 3 years for follow up Plan Follow up in 3 months Orders: Orders UA CC w/rflx Micro + Cult 3 Months R30.0 - Dysuria TSH reflex Free T4 3 Months E78.00 - Pure hypercholesterolemia, unspecified Vitamin B12 and Folate 3 Months E53.8 - Deficiency of other specified B group vitamins Hemoglobin A1c 3 Months R73.01 - Impaired fasting glucose Comprehensive [place]. Panel Fast 3 Months E78.00 - Pure hypercholesterolemia, unspecified Lipid Panel 3 Months E78.00 - Pure hypercholesterolemia, unspecified Complete Blood Count Auto Diff 3 Months D64.9 - Anemia, unspecified Vitamin D 25-OH Total 3 Months E55.9 - Vitamin D deficiency, unspecified Erythrocyte Sedimentation Rate 3 Months M79.7 - Fibromyalgia Medications: New nitrofurantoin monohyd/m-cryst 100 mg (Macrobid) must administer with a meal/food 100 mg PO Q12H 7 days 14 caps 0RF Refilled amitriptyline 50 mg PO BEDTIME 90 days 90 tabs 1RF oxycodone-acetaminophen 7.5-325 mg 1 tab PO Q8H 30 days PRN 90 tabs 0RF pain Coding Level of Care Code Est Pt Level 4 (69740) Diagnoses Pure hypercholesterolemia E78.00 Benign essential hypertension I10 Impaired fasting glucose R73.01 Exertional dyspnea R06.00 Leukopenia, unspecified type D72.819 Leukopenia type: unspecified Vitamin D deficiency E55.9 Vitamin B12 deficiency E53.8 Primary osteoarthritis of knees, bilateral M17.0 Lumbar degenerative disc disease M51.36 Cervical spondylosis M47.812 Left foot pain M79.672 Fibromyalgia M79.7 Gastroesophageal reflux disease without esophagitis K21.9 Esophagitis presence: without esophagitis Serum total bilirubin elevated R17 Anxiety F41.9 Depression, unspecified depression type F32.9 Depression Type: unspecified Overweight (BMI 25.0-29.9) E66.3 Osteoporosis screening Z13.820
== END 2023-10-03 11:52 | disposition home or self-care (01) ==
PROVIDERS: PCP Internal Medicine; Visit Provider Internal Medicine
DX: E78.00 Pure hypercholesterolemia, unspecified (principal); I10 Essential (primary) hypertension; R73.01 Impaired fasting glucose; R06.00 Dyspnea, unspecified; D72.819 Decreased white blood cell count, unspecified; E55.9 Vitamin D deficiency, unspecified; E53.8 Deficiency of other specified B group vitamins; M17.0 Bilateral primary osteoarthritis of knee; M51.36 Other intervertebral disc degeneration, lumbar region; M47.812 Spondylosis without myelopathy or radiculopathy, cervical region; M79.672 Pain in left foot; M79.7 Fibromyalgia
CPT/HCPCS: 99214

== ENCOUNTER 2023-12-16 15:12 | Outpatient (REF) | payer MEDICARE, SELFPAY ==
--- NOTE | ~2023-12-16 | XR_ITS ---
EXAMINATION: XR LEFT ANKLE XR LEFT FOOT CLINICAL INFORMATION: Status post fall on Tuesday. Left foot and ankle pain. COMPARISON: 11/22/2019 and 10/07/2017 TECHNIQUE: AP, lateral, and mortise views of the left foot were obtained. AP and oblique views of the left ankle were obtained. FINDINGS: Alignment is anatomic. Ankle mortise is maintained. The talar dome is intact. Pes planus. Small plantar calcaneal spur. There is a mildly displaced fracture involving the head neck junction of the fifth metatarsal with apex dorsal angulation. There is regional soft tissue swelling. XR/XR ankle LT min 3V IMPRESSION: Mildly displaced fracture involving the head neck junction of the fifth metatarsal.
--- NOTE | ~2023-12-16 | XR_ITS ---
EXAMINATION: XR LEFT ANKLE XR LEFT FOOT CLINICAL INFORMATION: Status post fall on Tuesday. Left foot and ankle pain. COMPARISON: 11/22/2019 and 10/07/2017 TECHNIQUE: AP, lateral, and mortise views of the left foot were obtained. AP and oblique views of the left ankle were obtained. FINDINGS: Alignment is anatomic. Ankle mortise is maintained. The talar dome is intact. Pes planus. Small plantar calcaneal spur. There is a mildly displaced fracture involving the head neck junction of the fifth metatarsal with apex dorsal angulation. There is regional soft tissue swelling. XR/XR foot LT min 3V IMPRESSION: Mildly displaced fracture involving the head neck junction of the fifth metatarsal.
== END 2023-12-16 15:13 | disposition home or self-care (01) ==
LOC: HO.XRAY 15:12
PROVIDERS: PCP Internal Medicine; Visit Provider Internal Medicine
DX: M25.572 Pain in left ankle and joints of left foot (principal); M79.672 Pain in left foot
CPT/HCPCS: 73610; 73630

== ENCOUNTER 2024-01-05 15:55 | Outpatient (REF) | payer MEDICARE, SELFPAY ==
[2024-01-05 16:08] LABS: MANUAL DIFF FLAG NO
[2024-01-05 16:23] LABS: Estimated Average Glucose 120 mg/dL; Hemoglobin A1c % 5.8 % (<6.0)
[2024-01-05 16:40] LABS: Basophils Percent Auto 0.6 % (0-2); Eosinophils Absolute Auto 0.3 X10*3/uL (0.0-0.4); Eosinophils Percent Auto 8.7 % (0-4); Hematocrit 38.8 % (37.0-47.0); Hemoglobin 12.8 g/dl (12.0-16.0); Imm Gran Abs Auto 0.02 X10*3/uL (0.00-0.03); Imm Gran Pct Auto 0.6 % (0.0-0.4); Lymphocytes Absolute Auto 1.5 X10*3/uL (1.2-4.9); Lymphocytes Percent Auto 43.1 % (20-40); Mean Corpuscular Hemoglobin 32.2 pg (27.0-33.0); Mean Corpuscular Volume 97.7 fL (80.0-98.0); Mean Platelet Volume 10.5 fL (9.4-12.3); Monocytes Absolute Auto 0.2 X10*3/uL (0.1-1.2); Monocytes Percent Auto 4.8 % (2-11); Neutrophils Absolute Auto 1.5 x10*3/uL (2.0-8.3); Neutrophils Percent Auto 42.2 % (45-73); Platelet Count 285 X10*3/uL (160-400); Red Blood Count 3.97 X10*6/uL (4.20-5.50); White Blood Count 3.6 X10*3/uL (4.8-10.8)
[2024-01-05 16:52] LABS: Alanine Aminotransferase 14 U/L (0-31); Albumin Level 4.2 g/dL (3.5-5.0); Alkaline Phosphatase 69 U/L (39-117); Anion Gap 11 (12-20); Aspartate Amino Transferase 17 U/L (5-31); Bilirubin Total 1.4 mg/dL (0.0-1.0); Blood Urea Nitrogen 12 mg/dL (9-16); Calcium 9.2 mg/dL (8.4-10.2); Carbon Dioxide 29 mmol/L (22-29); Chloride 107 mmol/L (96-108); Cholesterol 182 mg/dL (<200); Estimated Glomerular Filt Rate > 60; Glucose Fasting 109 mg/dL (60-99); HDL Cholesterol 46 mg/dL (>40); LDL Cholesterol Calculated 105 mg/dL (<100); Potassium 4.1 mmol/L (3.3-5.1); Sodium 143 mmol/L (135-145); Total Protein 6.8 g/dL (6.5-8.0); Triglycerides 159 mg/dL (<150)
[2024-01-05 17:06] LABS: TSH reflex Free T4 1.74 uIU/mL (0.32-4.0); Vitamin D 25-OH Total 25.5 ng/mL (>30)
[2024-01-05 17:57] LABS: Appearance Urine Cloudy; Color Urine Yellow; Glucose Urine UA Negative (Negative); Leukocyte Esterase Urine Moderate (2+) (Negative); Nitrite Urine Negative (Negative); UMIC TRIGGER UACC YES; Urine Blood Negative (Negative); Urine Ketones Negative (Negative); Urine Protein Negative (Neg-Trace)
[2024-01-05 18:04] LABS: Folate 14.6 ng/mL (> or = 4.0); Vitamin B12 1041 pg/mL (200-900)
[2024-01-05 18:07] LABS: Bacteria Urine 3+ (None Seen); Hyaline Casts Urine 0-2 /LPF (0-2); RBC Urine 0-2 /HPF (0-2); Squamous Epithelial Cell Urine >20 /HPF (0-2); UACC Culture Trigger YES; WBC Urine 21-50 /HPF (0-5)
[2024-01-05 18:59] LABS: Erythrocyte Sedimentation Rate 7 MM/HR (0-20)
== END 2024-01-05 15:56 | disposition home or self-care (01) ==
LOC: HO.LAB 15:55
PROVIDERS: PCP Internal Medicine; Visit Provider Internal Medicine
DX: E55.9 Vitamin D deficiency, unspecified (principal); E78.00 Pure hypercholesterolemia, unspecified; E53.8 Deficiency of other specified B group vitamins; R73.01 Impaired fasting glucose; D64.9 Anemia, unspecified; M79.7 Fibromyalgia; R30.0 Dysuria
CPT/HCPCS: 36415; 80053; 80061; 81001; 82306; 82607; 82746; 83036; 84443; 85025; 85652; 87086

== ENCOUNTER 2024-01-09 12:59 | Outpatient (AMB) | payer MEDICARE, SELFPAY ==
--- NOTE | 2024-01-09 13:18 | MHC.PC.OV ---
Vital Signs 01/09/24 13:19 Height 5 ft 6 in Weight 183 lb 4 oz BMI 29.6 BP 136/64 Blood Pressure Location Lt brachial Position Sitting Pulse 83 Pulse Source Pulse Oximeter Pulse Oximetry (%) 96 Oxygen Delivery Method Room Air Intake Visit Reasons: 3 month f/u Intake Note: Patient is here to follow up on GERD, LDDD, IFG, HTN. [employer] Workers Required: No Driver Service Technician: Not Required per policy Accompanied by: Self / Same As Patient Allergies levofloxacin [From LEVAQUIN] Adverse Reaction (Mild, Verified 01/09/24 13:59) TENDONITIS, JOINT PAIN Medication List - Last Reconciled 01/09/24 by Tarik Salguero MD amitriptyline 50 mg PO BEDTIME 90 days ascorbic acid (vitamin C) 100 mg PO DAILY atenolol 50 mg PO DAILY atorvastatin 10 mg PO DAILY cholecalciferol (vitamin D3) (Vitamin D3) 25 mcg PO DAILY cyanocobalamin (vitamin B-12) 1,000 mcg PO DAILY diclofenac sodium 75 mg PO BID PRN folic acid 1 tab PO DAILY loratadine (Claritin) 10 mg PO DAILY lorazepam 0.5 mg PO TID PRN 90 days magnesium 250 mg PO DAILY omeprazole 20 mg PO DAILY 90 days oxycodone-acetaminophen 7.5-325 mg 1 tab PO Q8H PRN 30 days paroxetine HCl 20 mg PO QAM Tobacco use date assessed: 01/09/24 Fall risk assessment: No Falls in past year Last assessed Fall Risk: 01/09/24 Dental Screening Dental Screen Date: 10/03/23 HPI 3 month f/u HPI Details Patient comes in today for her follow up visit States that she feels okay She denies any headaches or dizziness Denies any chest pains, no SOB No nausea/vomiting, no abdominal pain No change in bowel habits noted States that her chronic low back pain, neck pain and joint pains remain adequately controlled on her current Rx Patient also recalls that she twisted and strained her foot last month and she called to ask for x-rays to be ordered as her entire left foot was swollen and bruised for a while but these have since subsided; she still has some pain and discomfort in her foot but is able to walk on it and her ROM of the foot and ankle are grossly normal States that she called up orthopedics and was able to get an appointment scheduled for next week for them to see her for her foot issues Had her follow up labs done a few days ago - to discuss her results [facility] Medical History Serum total bilirubin elevated Overweight (BMI 25.0-29.9) Depression Anxiety Osteoarthritis of knees, bilateral Cervical spondylosis Lumbar degenerative disc disease Fibromyalgia Vitamin D deficiency Leukopenia Exertional dyspnea Impaired fasting glucose Benign essential hypertension Pure hypercholesterolemia Surgical History S/P colonoscopy (~03/31/22) H/O left breast biopsy History of appendectomy Family History Father Past heart attack CVD (cardiovascular disease) Mother Hypertension Lung cancer Sister Breast cancer Brother Diabetes Maternal Aunt Diabetes Paternal Aunt Ovarian cancer Social History Household Members: Family Housing: House Are you a primary child care supervisor to a significant other at home: No Do you presently have visiting nurse or other home services: No Alcohol intake: current Alcohol intake frequency: holidays/special occasions only Patient Tobacco Use Status: Former Tobacco user e-Cigarette/Vaping Use: Never Used Second Hand Smoke Exposure: Yes service: No Current occupational status: retired Cognitive needs: No Hearing needs: No Vision needs: Yes (Glasses) Questionnaire PHQ-9 Over the last 2 weeks, how often have you been bothered by any of the following problems? Depression Screening Interpretation: Negative Depression Screening Done: Yes Source: Developed by Drs. Avery Hathaway, Shaniuqa Ca, Nacho Contreras and colleagues, with an educational dayan from [employer]. Thrive Questionnaire Date Thrive assessed: 10/03/23 Currently or been in a relationship where the following occur: no concerns reported THRIVE Score: 0 JUDD-7 AMB Questionnaire JUDD-7 Date JUDD - 7 assessed: 10/03/23 Source: Developed by Drs. Avery Hathaway, Shaniqua Ca, Nacho Contreras and colleagues, with an educational dayan from [employer]. Review of Systems Const Denies chills, Denies fatigue, Denies fever(s) and Denies headache(s) ENT Denies dysphagia, Denies dizziness, Denies otalgia, Denies headache(s), Reports neck pain, Denies odynophagia and Denies sore throat Card Denies chest pain, Denies palpitations and Denies dyspnea Resp Denies cough, Denies dyspnea and Denies wheezing GI Denies abdominal pain, Denies constipation, Denies dysphagia, Denies heartburn, Denies diarrhea, Denies nausea, Denies odynophagia and Denies vomiting Denies difficulty voiding, Denies nocturia, Denies dysuria (but (+) burning sensation on urination lately) and Denies urinary urgency Musc Details: (+) chronic pain over the left foot and over the right big toe Reports back pain (increasing), Reports arthralgias (over both knees; in the left foot recently (see HPI)), Reports neck pain and Reports stiffness Skin/Breast Denies rash Neuro Denies dizziness and Denies headache(s) Psych Denies anxiety and Denies depression Endo Denies fatigue and Denies palpitations [place]/Lymph Denies easy bruising Aller/Immun Denies wheezing Physical exam (Primary Care) Vital Signs: Last Vital Signs Pulse 83 01/09/24 13:19 BP 136/64 01/09/24 13:19 Pulse Ox 96 01/09/24 13:19 Oxygen Delivery Method Room Air 01/09/24 13:19 BMI result Body Mass Index 29.6 Tobacco/Smoking Status: Tobacco use Status Tobacco use date assessed 01/09/24 01/09/24 13:25 Patient Tobacco Use Status Former Tobacco user 01/09/24 13:25 e-Cigarette/Vaping Use Never Used 01/09/24 13:25 Depression Screening Interpretation: Negative Thrive Assessment: Date of Thrive Assessment Date Thrive assessed 10/03/23 01/09/24 13:25 Currently or been in a relationship where the following occur: no concerns reported Const General: no acute distress and alert HENMT Ears: TM's normal bilaterally and EAC's normal Throat: Yes posterior oropharynx normal and Yes tonsils normal (no TP congestion noted) Neck Neck: Yes no lymphadenopathy and Yes supple Thyroid: Thyroid normal Resp Auscultation: clear to auscultation bilaterally, no rales and no wheezes Cardio Rate: regular rate Rhythm: regular rhythm Heart sounds: no murmurs GI Palpation (GI): Soft to palpation and nontender Auscultation: normal bowel sounds General: Yes no CVA tenderness Back/Spine/Pelvis Back: no CVA tenderness Cervical Spine: Cervical spine tenderness Thoracic/Lumbar Spine: lumbar spinal tenderness Skin Rashes: no rashes Extrem General: Yes no clubbing, cyanosis or edema Right lower extremity: knee Details: tenderness; no swelling Left lower extremity: knee Details: tenderness; no swelling and foot Details: tenderness (mild) Location: of the dorsal foot Location: laterally (at the base of the 5th toe) and no edema Results Reviewed Results Reviewed: Laboratory Tests 01/05/24 01/05/24 16:05 16:06 WBC 3.6 L Hgb 12.8 Hct 38.8 Plt Count 285 Sodium 143 Potassium 4.1 Creatinine 0.87 Estimated GFR > 60 Fasting Glucose 109 H Hemoglobin A1c % 5.8 Calcium 9.2 AST 17 ALT 14 Triglycerides 159 H Cholesterol 182 LDL Cholesterol, Calc 105 H HDL Cholesterol 46 Vitamin B12 1041 H 25-OH Vitamin D Total 25.5 L TSH 1.74 Urine pH 6.0 Ur Specific [place] 1.020 Urine Protein Negative Urine Glucose (UA) Negative Urine Blood Negative Urine Nitrite Negative Ur Leukocyte Esterase Moderate (2+) H Assessment and Plan Assessment & Plan (1) Pure hypercholesterolemia: Code(s): E78.00 - Pure hypercholesterolemia, unspecified Plan: Results of her labs done a few days ago reviewed and discussed with patient Reinforced low cholesterol diet Continue Atorvastatin 10 mg QD Will recheck her labs and fasting lipids in 3 months for follow-up (2) Benign essential hypertension: Code(s): I10 - Essential (primary) hypertension Plan: Reinforced low-sodium diet - goal is systolic BP of at least 130 to 140 mm or less Continue Atenolol 25 mg QD (3) Impaired fasting glucose: Code(s): R73.01 - Impaired fasting glucose Plan: Patient's HgbA1c remains unchanged from previous at 5.8% on her recent labs Reinforced low calorie diet / exercise as tolerated (4) Exertional dyspnea: Code(s): R06.00 - Dyspnea, unspecified Plan: This has been ongoing for a few years now and is mostly unchanged; is most likely multifactorial, including due to physical decompensation - patient feels that this has been stable lately and have not progressed at all over the past year Lexiscan stress test and myocardial perfusion scan done on 12/11/2018 to check out her symptoms back then were normal (5) Leukopenia: Code(s): D72.819 - Decreased white blood cell count, unspecified Qualifiers: Leukopenia type: unspecified Qualified Code(s): D72.819 - Decreased white blood cell count, unspecified Plan: Stable - follow-up with hematology/oncology as scheduled Will continue to monitor her CBC regularly (6) Vitamin D deficiency: Code(s): E55.9 - Vitamin D deficiency, unspecified Plan: She is advised that her Vitamin D level has dropped slightly on her recent labs and she is now again low on her Vitamin D level Continue Vitamin D3 2000 units QD for now Will recheck her Vitamin D level in 3 months for follow up (7) Vitamin B12 deficiency: Code(s): E53.8 - Deficiency of other specified B group vitamins Plan: She continues to receive B12 injections from Dr. Knight every 3 months She is advised to back down on her oral Vitamin B12 supplements to 2 times a week instead of daily as her Vitamin B12 level remains high on her recent labs at over 1000 Follow up with hematology as scheduled (8) Primary osteoarthritis of knees, bilateral: Code(s): M17.0 - Bilateral primary osteoarthritis of knee Plan: Most likely due to osteoarthritis; x-rays of both knees done a few years ago revealed (+) OA changes bilaterally Follow up with [facility] Orthopedics as scheduled (9) Lumbar degenerative disc disease: Code(s): M51.36 - Other intervertebral disc degeneration, lumbar region Plan: Reinforced activity and weight lifting restrictions Repeat lumbar spine x-rays done back in February 2022 revealed degenerative disc changes L2-L3 and L3-L4 disc levels with ventral spondylosis. Grade 1 retrolisthesis L3 over L4 and L2 over L3. No acute fractures seen Continue Oxycodone-Acetaminophen 5-325 mg 1 tablet every 8 hours PRN for pain Has been seeing Dr. Domínguez at [facility] for pain management - to continue following up with pain management as scheduled (10) Cervical spondylosis: Code(s): M47.812 - Spondylosis without myelopathy or radiculopathy, cervical region Plan: States that current medications are helping with her chronic neck pain (11) Left foot pain: Code(s): M79.672 - Pain in left foot Plan: She has received cortisone injection into her left heel area previously, with (+) relief of her symptoms Follow up with Dr. Morgan at [facility] as scheduled (12) Foot fracture, left: Code(s): S92.902A - Unspecified fracture of left foot, initial encounter for closed fracture Qualifiers: Encounter type: sequela Fracture type: closed Qualified Code(s): S92.902S - Unspecified fracture of left foot, sequela Plan: X-rays of the left foot done back in November 2023 revealed (+) mildly displaced fracture involving the head neck junction of the fifth metatarsal Patient recalls that she twisted and strained her foot back then before she asked for x-rays to be ordered - states that her entire left foot was swollen and bruised for a while but these have since subsided She is scheduled to be seen by orthopedics for this next week for further evaluation (13) Fibromyalgia: Code(s): M79.7 - Fibromyalgia Plan: Encouraged again to continue with regular exercise and physical activity to help manage her fibromyalgia symptoms (14) GERD (gastroesophageal reflux disease): Code(s): K21.9 - Gastro-esophageal reflux disease without esophagitis Qualifiers: Esophagitis presence: without esophagitis Qualified Code(s): K21.9 - Gastro-esophageal reflux disease without esophagitis Plan: Dietary restrictions reinforced Continue Omeprazole 20 mg QD (15) Serum total bilirubin elevated: Code(s): R17 - Unspecified jaundice Plan: (?) Gilbert's Syndrome Abdominal US done on 01/12/2017 was normal; serum transaminases remain normal on her recent labs and patient is asymptomatic Will continue to monitor her serum bilirubin level regularly - will consider repeat abdominal ultrasound if her serum bilirubin level remains significantly elevated at her next follow-up visits (16) Anxiety: Code(s): F41.9 - Anxiety disorder, unspecified Plan: Continue Lorazepam 0.5 mg 2 to 3 times a day as needed (17) Depression: Code(s): F32.9 - Major depressive disorder, single episode, unspecified Qualifiers: Depression Type: unspecified Qualified Code(s): F32.9 - Major depressive disorder, single episode, unspecified Plan: Continue Paroxetine 20 mg QD and Amitriptyline 50 mg Q HS Follow up with psychiatry as scheduled (18) Overweight (BMI 25.0-29.9): Code(s): E66.3 - Overweight Plan: Reinforced diet/exercise as tolerated/ lose weight Plan Follow up in 3 months Orders: Orders Lipid Panel 3 Months E78.00 - Pure hypercholesterolemia, unspecified UA CC w/rflx Micro + Cult 3 Months R30.0 - Dysuria Complete Blood Count Auto Diff 3 Months D64.9 - Anemia, unspecified Comprehensive [place]. Panel Fast 3 Months E78.00 - Pure hypercholesterolemia, unspecified TSH reflex Free T4 3 Months E78.00 - Pure hypercholesterolemia, unspecified Vitamin D 25-OH Total 3 Months E55.9 - Vitamin D deficiency, unspecified Vitamin B12 and Folate 3 Months E53.8 - Deficiency of other specified B group vitamins Hemoglobin A1c 3 Months E11.9 - Type 2 diabetes mellitus without complications Coding Level of Care Code Est Pt Level 4 (64157) Diagnoses Pure hypercholesterolemia E78.00 Benign essential hypertension I10 Impaired fasting glucose R73.01 Exertional dyspnea R06.00 Leukopenia, unspecified type D72.819 Leukopenia type: unspecified Vitamin D deficiency E55.9 Vitamin B12 deficiency E53.8 Primary osteoarthritis of knees, bilateral M17.0 Lumbar degenerative disc disease M51.36 Cervical spondylosis M47.812 Left foot pain M79.672 Closed fracture of left foot, sequela S92.902S Encounter type: sequela Fracture type: closed Fibromyalgia M79.7 Gastroesophageal reflux disease without esophagitis K21.9 Esophagitis presence: without esophagitis Serum total bilirubin elevated R17 Anxiety F41.9 Depression, unspecified depression type F32.9 Depression Type: unspecified Overweight (BMI 25.0-29.9) E66.3
[2024-01-09 13:19] VITALS: BP 136/64; PULSE 83; O2SAT 96; BMI 29.6
== END 2024-01-09 14:22 | disposition home or self-care (01) ==
LOC: HO.HMGH 13:13
PROVIDERS: PCP Internal Medicine; Visit Provider Internal Medicine
DX: E78.00 Pure hypercholesterolemia, unspecified (principal); I10 Essential (primary) hypertension; R73.01 Impaired fasting glucose; R06.00 Dyspnea, unspecified; D72.819 Decreased white blood cell count, unspecified; E55.9 Vitamin D deficiency, unspecified; E53.8 Deficiency of other specified B group vitamins; M17.0 Bilateral primary osteoarthritis of knee; M51.36 Other intervertebral disc degeneration, lumbar region; M47.812 Spondylosis without myelopathy or radiculopathy, cervical region; M79.672 Pain in left foot; K21.9 Gastro-esophageal reflux disease without esophagitis
CPT/HCPCS: 99214

== ENCOUNTER 2024-01-13 09:49 | Outpatient (REF) | payer MEDICARE, SELFPAY ==
--- NOTE | ~2024-01-13 | XR_ITS ---
EXAMINATION: XR FOOT, LEFT CLINICAL INFORMATION: Pain in the left foot COMPARISON: X-rays of the left ankle and foot November 2023 TECHNIQUE: AP, lateral, and oblique views of the left foot. FINDINGS: Fifth metatarsal: The distal fifth metatarsal fractures redemonstrated slightly less conspicuous and consistent with a partial fracture healing. The remaining bone and joints and soft tissues unremarkable. XR/XR foot LT min 3V IMPRESSION: Partial healing of the distal fifth metatarsal fracture.
== END 2024-01-13 09:50 | disposition home or self-care (01) ==
LOC: HO.HOSX 09:49
PROVIDERS: Visit Provider Physician Assistant
DX: M79.672 Pain in left foot (principal)
CPT/HCPCS: 73630; 99202

== ENCOUNTER 2024-01-16 08:48 | Outpatient (AMB) | payer MEDICARE, SELFPAY ==
--- NOTE | 2024-01-16 08:51 | MHC.OFFVIS ---
Vital Signs 01/16/24 08:52 Height 5 ft 6 in Weight 183 lb BMI 29.5 Intake Visit Reasons: OV-B/L Knee OA - Last injected 03/28/23 Intake Note: Tonia is a 68 year old female who presents today for a follow up of her bilateral knee OA. Both of her knees were injected on 03/28/23. Patient reports that these injections were helpful and she would like to repeat injections today. Allergies levofloxacin [From LEVAQUIN] Adverse Reaction (Mild, Verified 01/16/24 08:52) TENDONITIS, JOINT PAIN HPI HPI OV-B/L Knee OA - Last injected 03/28/23: Details: Tonia is a 68 year old female who presents today for a follow up of her bilateral knee OA. Both of her knees were injected on 03/28/23. Patient reports that these injections were helpful and she would like to repeat injections today. [facility]LY [facility] Medical History Serum total bilirubin elevated Overweight (BMI 25.0-29.9) Depression Anxiety Osteoarthritis of knees, bilateral Cervical spondylosis Lumbar degenerative disc disease Fibromyalgia Vitamin D deficiency Leukopenia Exertional dyspnea Impaired fasting glucose Benign essential hypertension Pure hypercholesterolemia Surgical History S/P colonoscopy (~03/31/22) H/O left breast biopsy History of appendectomy Family History Father Past heart attack CVD (cardiovascular disease) Mother Hypertension Lung cancer Sister Breast cancer Brother Diabetes Maternal Aunt Diabetes Paternal Aunt Ovarian cancer Social History (Updated 01/13/24 @ 10:59 by Zayda Fox [facility]) Household Members: Family Housing: House Are you a primary director of home care hospice to a significant other at home: No Do you presently have visiting nurse or other home services: No Alcohol intake: current Alcohol intake frequency: holidays/special occasions only Patient Tobacco Use Status: Former Tobacco user e-Cigarette/Vaping Use: Never Used Second Hand Smoke Exposure: Yes service: No Current occupational status: retired 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 Site was prepped using aseptic technique. Patient tolerated the procedure well. Primary Site: right knee Secondary Site: left knee Approach Used: anterolateral Coding - Large joint 62607 - Glenohumeral/Tronchanteric Bursa/Intraarticular Procedure code (CPT) selection complete Assessment & Plan Assessment & Plan (1) Osteoarthritis of knees, bilateral: Code(s): M17.0 - Bilateral primary osteoarthritis of knee Category: Medical Qualifiers: Osteoarthritis type: primary Qualified Code(s): M17.0 - Bilateral primary osteoarthritis of knee Plan I injected both of her knees today she may follow up no sooner than 3 months for repeat injections. Coding Level of Care Code Est Pt Level 3 (82143) Diagnoses Primary osteoarthritis of both knees M17.0 Osteoarthritis type: primary CPT Codes Coding - Large joint: 11845 - Large joint ([id number]) Coding - Joint 7: 45788 - Glenohumeral/Tronchanteric Bursa/Intraarticular ([id number])
[2024-01-16 08:52] VITALS: BMI 29.5
== END 2024-01-16 09:13 | disposition home or self-care (01) ==
PROVIDERS: PCP Internal Medicine; Visit Provider Orthopaedic Surgery
DX: M17.0 Bilateral primary osteoarthritis of knee (principal)
CPT/HCPCS: 20610; 99213

== ENCOUNTER → 2024-01-16 08:48 | Outpatient (BNVA) | payer MEDICARE, SELFPAY | PROVIDERS: PCP Internal Medicine; Visit Provider Orthopaedic Surgery | DX: M17.0 Bilateral primary osteoarthritis of knee (principal) | CPT/HCPCS: 20610; 99212; J0665; J1100 ==

== ENCOUNTER 2024-04-16 15:14 | Outpatient (REF) | payer MEDICARE, SELFPAY ==
[2024-04-16 15:41] LABS: MANUAL DIFF FLAG NO
[2024-04-16 16:26] LABS: Basophils Percent Auto 0.3 % (0-2); Eosinophils Absolute Auto 0.3 X10*3/uL (0.0-0.4); Eosinophils Percent Auto 9.1 % (0-4); Hematocrit 38.2 % (37.0-47.0); Hemoglobin 12.9 g/dl (12.0-16.0); Imm Gran Abs Auto 0.01 X10*3/uL (0.00-0.03); Imm Gran Pct Auto 0.3 % (0.0-0.4); Lymphocytes Absolute Auto 1.6 X10*3/uL (1.2-4.9); Lymphocytes Percent Auto 45.6 % (20-40); Mean Corpuscular HGB Conc 33.8 g/dl (31.0-35.0); Mean Corpuscular Hemoglobin 32.5 pg (27.0-33.0); Mean Corpuscular Volume 96.2 fL (80.0-98.0); Mean Platelet Volume 10.8 fL (9.4-12.3); Monocytes Absolute Auto 0.2 X10*3/uL (0.1-1.2); Monocytes Percent Auto 4.2 % (2-11); Neutrophils Absolute Auto 1.4 x10*3/uL (2.0-8.3); Neutrophils Percent Auto 40.5 % (45-73); Platelet Count 243 X10*3/uL (160-400); Red Blood Count 3.97 X10*6/uL (4.20-5.50); Red Cell Distribution Width 12.7 % (11.0-16.0); White Blood Count 3.5 X10*3/uL (4.8-10.8)
[2024-04-16 16:31] LABS: Estimated Average Glucose 114 mg/dL; Hemoglobin A1c % 5.6 % (<6.0)
[2024-04-16 17:28] LABS: Appearance Urine Cloudy; Color Urine Dark Yellow; Glucose Urine UA Negative (Negative); Leukocyte Esterase Urine Small (1+) (Negative); Nitrite Urine Negative (Negative); PH 5.5 (5.0-9.0); Specific Gravity - Urine 1.025 (1.005-1.025); UMIC TRIGGER UACC YES; Urine Blood Negative (Negative); Urine Ketones Trace mg/dL (Negative); Urine Protein Trace mg/dL (Neg-Trace)
[2024-04-16 17:32] LABS: Bacteria Urine 1+ (None Seen); Hyaline Casts Urine 0-2 /LPF (0-2); RBC Urine 0-2 /HPF (0-2); Squamous Epithelial Cell Urine >20 /HPF (0-2); UACC Culture Trigger YES
[2024-04-16 17:38] LABS: Alanine Aminotransferase 18 U/L (0-31); Albumin Level 4.2 g/dL (3.5-5.0); Alkaline Phosphatase 67 U/L (39-117); Anion Gap 12 (12-20); Aspartate Amino Transferase 19 U/L (5-31); Bilirubin Total 1.7 mg/dL (0.0-1.0); Blood Urea Nitrogen 14 mg/dL (9-16); Calcium 9.1 mg/dL (8.4-10.2); Carbon Dioxide 27 mmol/L (22-29); Chloride 106 mmol/L (96-108); Cholesterol 186 mg/dL (<200); Estimated Glomerular Filt Rate > 60; Glucose Fasting 109 mg/dL (60-99); HDL Cholesterol 45 mg/dL (>40); LDL Cholesterol Calculated 111 mg/dL (<100); Potassium 3.7 mmol/L (3.3-5.1); Sodium 141 mmol/L (135-145); Total Protein 6.8 g/dL (6.5-8.0); Triglycerides 154 mg/dL (<150)
[2024-04-16 17:52] LABS: TSH reflex Free T4 1.61 uIU/mL (0.32-4.0); Vitamin D 25-OH Total 29.1 ng/mL (>30)
[2024-04-16 18:06] LABS: Folate 15.3 ng/mL (> or = 4.0); Vitamin B12 1007 pg/mL (200-900)
== END 2024-04-16 15:15 | disposition home or self-care (01) ==
LOC: HO.LAB 15:14
PROVIDERS: PCP Internal Medicine; Visit Provider Internal Medicine
DX: E78.00 Pure hypercholesterolemia, unspecified (principal); D64.9 Anemia, unspecified; E55.9 Vitamin D deficiency, unspecified; E53.8 Deficiency of other specified B group vitamins; E11.9 Type 2 diabetes mellitus without complications; R30.0 Dysuria
CPT/HCPCS: 36415; 80053; 80061; 81001; 82306; 82607; 82746; 83036; 84443; 85025; 87086

== ENCOUNTER 2024-04-17 10:39 | Outpatient (AMB) | payer MEDICARE, SELFPAY ==
[2024-04-17 10:43] VITALS: BP 140/82; PULSE 79; O2SAT 98; BMI 29.2
--- NOTE | 2024-04-17 10:43 | A.OFFPC_ITS ---
Vital Signs 04/17/24 10:43 04/17/24 11:36 Height 5 ft 6 in Weight 181 lb BMI 29.2 BP 140/82 H 138/78 Blood Pressure Location Lt brachial Lt brachial Position Sitting Sitting Pulse 79 Pulse Source Pulse Oximeter Pulse Oximetry (%) 98 Oxygen Delivery Method Room Air Intake Visit Reasons: hyperlipidemia, IFG - see comments Allergies levofloxacin [From LEVAQUIN] Adverse Reaction (Mild, Verified 04/17/24 11:33) TENDONITIS, JOINT PAIN Medication List - Last Reconciled 04/17/24 by Tarik Salguero MD amitriptyline 50 mg PO BEDTIME 90 days ascorbic acid (vitamin C) 100 mg PO DAILY atenolol 50 mg PO DAILY atorvastatin 10 mg PO DAILY cholecalciferol (vitamin D3) (Vitamin D3) 25 mcg PO DAILY cyanocobalamin (vitamin B-12) 1,000 mcg PO DAILY diclofenac sodium 75 mg PO BID PRN folic acid 1 tab PO DAILY loratadine (Claritin) 10 mg PO DAILY magnesium 250 mg PO DAILY omeprazole 20 mg PO DAILY 90 days oxycodone-acetaminophen 7.5-325 mg 1 tab PO Q8H PRN 30 days paroxetine HCl 20 mg PO QAM Tobacco use date assessed: 01/09/24 Fall risk assessment: No Falls in past year Last assessed Fall Risk: 04/17/24 Dental Screening Dental Screen Date: 10/03/23 HPI hyperlipidemia, IFG - see comments HPI Details Patient comes in today for her follow up visit States that she feels okay She denies any headaches or dizziness Denies any chest pains, no SOB No nausea/vomiting, no abdominal pain No change in bowel habits noted States that her chronic low back pain, neck pain and joint pains remain adequately controlled on her current Rx - needs a few of her Rx refilled today She had her follow up labs done yesterday - to discuss her results [facility] Medical History Serum total bilirubin elevated Overweight (BMI 25.0-29.9) Depression Anxiety Osteoarthritis of knees, bilateral Cervical spondylosis Lumbar degenerative disc disease Fibromyalgia Vitamin D deficiency Leukopenia Exertional dyspnea Impaired fasting glucose Benign essential hypertension Pure hypercholesterolemia Surgical History S/P colonoscopy (~03/31/22) H/O left breast biopsy History of appendectomy Family History Father Past heart attack CVD (cardiovascular disease) Mother Hypertension Lung cancer Sister Breast cancer Brother Diabetes Maternal Aunt Diabetes Paternal Aunt Ovarian cancer Social History Household Members: Family Housing: House Are you a primary childcare aide to a significant other at home: No Do you presently have visiting nurse or other home services: No Alcohol intake: current Alcohol intake frequency: holidays/special occasions only Patient Tobacco Use Status: Former Tobacco user e-Cigarette/Vaping Use: Never Used Second Hand Smoke Exposure: Yes service: No Current occupational status: retired 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 1. Little interest or pleasure in doing things: not at all 2. Feeling down, depressed, or hopeless: not at all 3. Trouble falling or staying asleep, or sleeping too much: not at all 4. Feeling tired or having little energy: not at all 5. Poor appetite or overeating: not at all 6. Feeling bad about yourself - or that you are a failure or have let yourself or your family down: not at all 7. Trouble concentrating on things, such as reading the newspaper or watching television: not at all 8. Moving or speaking so slowly that other people could have noticed. Or the opposite - being so fidgety or restless that you have been moving around a lot more than usual: not at all 9. Thoughts that you would be better off or of hurting yourself in some way: not at all Total score: 0 Depression Screening Interpretation: Negative Depression Screening Done: Yes [id number] - PHQ-9 Billing: Yes Source: Developed by Drs. Avery Hathaway, Shaniqua Ca, Nacho Contreras and colleagues, with an educational dayan from [employer]. Thrive Questionnaire Date Thrive assessed: 10/03/23 AUDIT C Alcohol Use Questionnaire (AUDIT-C) 1. How often do you have a drink containing alcohol?: Never 2. How many drinks containing alcohol do you have on a typical day when you are drinking?: 1 or 2 3. How often do you have six or more drinks on one occasion?: Never Total Score: 0 Score Reviewed/Action Taken: Yes JUDD-7 AMB Questionnaire JUDD-7 Date JUDD - 7 assessed: 10/03/23 Source: Developed by Drs. Avery Hathaway, Shaniqua Ca, Nacho Contreras and colleagues, with an educational dayan from [employer]. Review of Systems Const Denies chills, Denies fatigue, Denies fever(s) and Denies headache(s) ENT Denies dysphagia, Denies dizziness, Denies otalgia, Denies headache(s), Reports neck pain, Denies odynophagia and Denies sore throat Card Denies chest pain, Denies palpitations and Denies dyspnea Resp Denies cough, Denies dyspnea and Denies wheezing GI Denies abdominal pain, Denies constipation, Denies dysphagia, Denies heartburn, Denies diarrhea, Denies nausea, Denies odynophagia and Denies vomiting Denies difficulty voiding, Denies nocturia, Denies dysuria (but (+) burning sensation on urination lately) and Denies urinary urgency Musc Details: (+) chronic pain over the left foot and over the right big toe Reports back pain (increasing), Reports arthralgias (over both knees; in the lef t foot recently (see HPI)), Reports neck pain and Reports stiffness Skin/Breast Denies rash Neuro Denies dizziness and Denies headache(s) Psych Denies anxiety and Denies depression Endo Denies fatigue and Denies palpitations [place]/Lymph Denies easy bruising Aller/Immun Denies wheezing Physical exam (Primary Care) Vital Signs: Last Vital Signs Pulse 79 04/17/24 10:43 BP 138/78 04/17/24 11:36 Pulse Ox 98 04/17/24 10:43 Oxygen Delivery Method Room Air 04/17/24 10:43 BMI result Body Mass Index 29.2 Tobacco/Smoking Status: Tobacco use Status Tobacco use date assessed 01/09/24 04/17/24 10:45 Patient Tobacco Use Status Former Tobacco user 04/17/24 10:45 e-Cigarette/Vaping Use Never Used 04/17/24 10:45 PHQ-9: PHQ-9 Score PHQ-9: Total score 0 04/17/24 11:40 Depression Screening Interpretation: Negative Thrive Assessment: Date of Thrive Assessment Date Thrive assessed 10/03/23 04/17/24 10:45 Const General: no acute distress and alert HENMT Ears: TM's normal bilaterally and EAC's normal Throat: Yes posterior oropharynx normal and Yes tonsils normal (no TP congestion noted) Neck Neck: Yes no lymphadenopathy and Yes supple Thyroid: Thyroid normal Resp Auscultation: clear to auscultation bilaterally, no rales and no wheezes Cardio Rate: regular rate Rhythm: regular rhythm Heart sounds: no murmurs GI Palpation (GI): Soft to palpation and nontender Auscultation: normal bowel sounds General: Yes no CVA tenderness Back/Spine/Pelvis Back: no CVA tenderness Cervical Spine: Cervical spine tenderness Thoracic/Lumbar Spine: lumbar spinal tenderness Skin Rashes: no rashes Extrem General: Yes no clubbing, cyanosis or edema Right lower extremity: knee Details: tenderness; no swelling Left lower extremity: knee Details: tenderness; no swelling and foot Details: tenderness (mild) Location: of the dorsal foot Location: laterally (at the base of the 5th toe) and no edema Results Reviewed Results Reviewed: Laboratory Tests 04/16/24 04/16/24 15:34 15:40 WBC 3.5 L Hgb 12.9 Hct 38.2 Plt Count 243 Sodium 141 Potassium 3.7 Creatinine 0.90 Estimated GFR > 60 Fasting Glucose 109 H Hemoglobin A1c % 5.6 Calcium 9.1 AST 19 ALT 18 Triglycerides 154 H Cholesterol 186 LDL Cholesterol, Calc 111 H HDL Cholesterol 45 Vitamin B12 1007 H 25-OH Vitamin D Total 29.1 L TSH 1.61 Ur Specific [place] 1.025 Urine Protein Trace Urine Glucose (UA) Negative Urine Blood Negative Urine Nitrite Negative Ur Leukocyte Esterase Small (1+) H Assessment and Plan Assessment & Plan (1) Pure hypercholesterolemia: Code(s): E78.00 - Pure hypercholesterolemia, unspecified Plan: Results of her labs done a few days ago reviewed and discussed with patient Reinforced low cholesterol diet Continue Atorvastatin 10 mg QD Will recheck her labs and fasting lipids in 3 months for follow-up (2) Benign essential hypertension: Code(s): I10 - Essential (primary) hypertension Plan: Reinforced low-sodium diet - goal is systolic BP of at least 130 to 140 mm or less Continue Atenolol 25 mg QD (3) Impaired fasting glucose: Code(s): R73.01 - Impaired fasting glucose Plan: Patient's HgbA1c was at 5.6 5 on her recent labs; was previously at 5.8% a few months ago Reinforced low calorie diet / exercise as tolerated (4) Exertional dyspnea: Code(s): R06.00 - Dyspnea, unspecified Plan: This has been ongoing for a few years now and is mostly unchanged; is most likely multifactorial, including due to physical decompensation - patient feels that this has been stable lately and have not progressed at all over the past year Lexiscan stress test and myocardial perfusion scan done on 12/11/2018 to check out her symptoms back then were normal (5) Leukopenia: Code(s): D72.819 - Decreased white blood cell count, unspecified Qualifiers: Leukopenia type: unspecified Qualified Code(s): D72.819 - Decreased white blood cell count, unspecified Plan: Stable - follow-up with hematology/oncology as scheduled Will continue to monitor her CBC regularly (6) Vitamin D deficiency: Code(s): E55.9 - Vitamin D deficiency, unspecified Plan: Improving - continue Vitamin D3 2000 units QD Will recheck her Vitamin D level in 3 months for follow up (7) Vitamin B12 deficiency: Code(s): E53.8 - Deficiency of other specified B group vitamins Plan: She continues to receive B12 injections from Dr. Knight every 3 months She is again advised to back down on her oral Vitamin B12 supplements to just once a week as her Vitamin B12 level remains high on her recent labs at over 1000 Follow up with hematology as scheduled (8) Primary osteoarthritis of knees, bilateral: Code(s): M17.0 - Bilateral primary osteoarthritis of knee Plan: Most likely due to osteoarthritis; x-rays of both knees done a few years ago revealed (+) OA changes bilaterally Follow up with [facility] Orthopedics as scheduled (9) Lumbar degenerative disc disease: Code(s): M51.36 - Other intervertebral disc degeneration, lumbar region Plan: Reinforced activity and weight lifting restrictions Repeat lumbar spine x-rays done back in February 2022 revealed degenerative disc changes L2-L3 and L3-L4 disc levels with ventral spondylosis. Grade 1 retrolisthesis L3 over L4 and L2 over L3. No acute fractures seen Continue Oxycodone-Acetaminophen 5-325 mg 1 tablet every 8 hours PRN for pain Has been seeing Dr. Domínguez at [facility] for pain management - to continue following up with pain management as scheduled (10) Cervical spondylosis: Code(s): M47.812 - Spondylosis without myelopathy or radiculopathy, cervical region Plan: States that current medications are helping with her chronic neck pain (11) Left foot pain: Code(s): M79.672 - Pain in left foot Plan: She has received cortisone injection into her left heel area previously, with (+) relief of her symptoms Follow up with Dr. Morgan at [facility] as scheduled (12) Foot fracture, left: Code(s): S92.902A - Unspecified fracture of left foot, initial encounter for closed fracture Qualifiers: Encounter type: sequela Fracture type: closed Qualified Code(s): S92.902S - Unspecified fracture of left foot, sequela Plan: X-rays of the left foot done back in November 2023 revealed (+) mildly displaced fracture involving the head neck junction of the fifth metatarsal Patient recalls that she twisted and strained her foot back then before she asked for x-rays to be ordered - states that her entire left foot was swollen and bruised for a while but these have since subsided Follow up with orthopedics as scheduled (13) Fibromyalgia: Code(s): M79.7 - Fibromyalgia Plan: Patient is again encouraged to continue with regular exercise and physical activity to help manage her fibromyalgia symptoms (14) GERD (gastroesophageal reflux disease): Code(s): K21.9 - Gastro-esophageal reflux disease without esophagitis Qualifiers: Esophagitis presence: without esophagitis Qualified Code(s): K21.9 - Gastro-esophageal reflux disease without esophagitis Plan: Dietary restrictions reinforced Continue Omeprazole 20 mg QD (15) Serum total bilirubin elevated: Code(s): R17 - Unspecified jaundice Plan: (?) Gilbert's Syndrome Abdominal US done on 01/12/2017 was normal; serum transaminases remain normal on her recent labs and patient is asymptomatic Will continue to monitor her serum bilirubin level regularly - will consider repeat abdominal ultrasound if her serum bilirubin level remains significantly elevated at her next follow-up visits (16) Anxiety: Code(s): F41.9 - Anxiety disorder, unspecified Plan: Continue Lorazepam 0.5 mg 2 to 3 times a day as needed (17) Depression: Code(s): F32.9 - Major depressive disorder, single episode, unspecified Qualifiers: Depression Type: unspecified Qualified Code(s): F32.9 - Major depressive disorder, single episode, unspecified Plan: Continue Paroxetine 20 mg QD and Amitriptyline 50 mg Q HS Follow up with psychiatry as scheduled (18) Overweight (BMI 25.0-29.9): Code(s): E66.3 - Overweight Plan: Reinforced diet/exercise as tolerated/ lose weight Plan Follow up in 3 months Orders: Orders Lipid Panel 3 Months E78.00 - Pure hypercholesterolemia, unspecified Complete Blood Count Auto Diff 3 Months D64.9 - Anemia, unspecified Comprehensive [place]. Panel Fast 3 Months E78.00 - Pure hypercholesterolemia, unspecified Medications: Refilled oxycodone-acetaminophen 7.5-325 mg 1 tab PO Q8H 30 days PRN 90 tabs 0RF pain amitriptyline 50 mg PO BEDTIME 90 days 90 tabs 1RF paroxetine HCl 20 mg PO QAM 90 tabs 1RF Coding Level of Care Code Est Pt Level 4 (89170) Complex EM visit Add On G2211 Diagnoses Pure hypercholesterolemia E78.00 Benign essential hypertension I10 Impaired fasting glucose R73.01 Exertional dyspnea R06.00 Leukopenia, unspecified type D72.819 Leukopenia type: unspecified Vitamin D deficiency E55.9 Vitamin B12 deficiency E53.8 Primary osteoarthritis of knees, bilateral M17.0 Lumbar degenerative disc disease M51.36 Cervical spondylosis M47.812 Left foot pain M79.672 Closed fracture of left foot, sequela S92.902S Encounter type: sequela Fracture type: closed Fibromyalgia M79.7 Gastroesophageal reflux disease without esophagitis K21.9 Esophagitis presence: without esophagitis Serum total bilirubin elevated R17 Anxiety F41.9 Depression, unspecified depression type F32.9 Depression Type: unspecified Overweight (BMI 25.0-29.9) E66.3
[2024-04-17 11:36] VITALS: BP 138/78
== END 2024-04-17 11:47 | disposition home or self-care (01) ==
PROVIDERS: PCP Internal Medicine; Visit Provider Internal Medicine
DX: E78.00 Pure hypercholesterolemia, unspecified (principal); I10 Essential (primary) hypertension; R73.01 Impaired fasting glucose; R06.00 Dyspnea, unspecified; D72.819 Decreased white blood cell count, unspecified; E55.9 Vitamin D deficiency, unspecified; E53.8 Deficiency of other specified B group vitamins; M17.0 Bilateral primary osteoarthritis of knee; M51.36 Other intervertebral disc degeneration, lumbar region; M47.812 Spondylosis without myelopathy or radiculopathy, cervical region; M79.672 Pain in left foot; S92.902S Unspecified fracture of left foot, sequela; M79.7 Fibromyalgia; K21.9 Gastro-esophageal reflux disease without esophagitis; R17 Unspecified jaundice; F41.9 Anxiety disorder, unspecified
CPT/HCPCS: 99214; G2211

== ENCOUNTER 2024-08-08 10:52 | Outpatient (REF) | payer MEDICARE, SELFPAY ==
[2024-08-08 11:28] LABS: MANUAL DIFF FLAG NO
[2024-08-08 11:45] LABS: Basophils Percent Auto 0.2 % (0-2); Eosinophils Absolute Auto 0.2 X10*3/uL (0.0-0.4); Eosinophils Percent Auto 3.7 % (0-4); Hematocrit 42.8 % (37.0-47.0); Hemoglobin 14.1 g/dl (12.0-16.0); Imm Gran Abs Auto 0.02 X10*3/uL (0.00-0.03); Imm Gran Pct Auto 0.4 % (0.0-0.4); Lymphocytes Absolute Auto 2.3 X10*3/uL (1.2-4.9); Lymphocytes Percent Auto 48.6 % (20-40); Mean Corpuscular HGB Conc 32.9 g/dl (31.0-35.0); Mean Corpuscular Hemoglobin 31.7 pg (27.0-33.0); Mean Corpuscular Volume 96.2 fL (80.0-98.0); Mean Platelet Volume 10.5 fL (9.4-12.3); Monocytes Absolute Auto 0.3 X10*3/uL (0.1-1.2); Monocytes Percent Auto 6.2 % (2-11); Neutrophils Percent Auto 40.9 % (45-73); Platelet Count 284 X10*3/uL (160-400); Red Blood Count 4.45 X10*6/uL (4.20-5.50); Red Cell Distribution Width 12.7 % (11.0-16.0); White Blood Count 4.8 X10*3/uL (4.8-10.8)
[2024-08-08 12:33] LABS: Alanine Aminotransferase 25 U/L (0-31); Albumin Level 4.5 g/dL (3.5-5.0); Alkaline Phosphatase 73 U/L (39-117); Anion Gap 12 (12-20); Aspartate Amino Transferase 27 U/L (5-31); Bilirubin Total 1.8 mg/dL (0.0-1.0); Blood Urea Nitrogen 12 mg/dL (9-16); Carbon Dioxide 29 mmol/L (22-29); Chloride 105 mmol/L (96-108); Cholesterol 154 mg/dL (<200); Estimated Glomerular Filt Rate 58; Glucose Fasting 115 mg/dL (60-99); HDL Cholesterol 47 mg/dL (>40); LDL Cholesterol Calculated 87 mg/dL (<100); Sodium 142 mmol/L (135-145); Total Protein 7.4 g/dL (6.5-8.0); Triglycerides 104 mg/dL (<150)
== END 2024-08-08 10:53 | disposition home or self-care (01) ==
LOC: HO.LAB 10:52
PROVIDERS: PCP Internal Medicine; Visit Provider Internal Medicine
DX: E78.00 Pure hypercholesterolemia, unspecified (principal); D64.9 Anemia, unspecified
CPT/HCPCS: 36415; 80053; 80061; 85025

== ENCOUNTER 2024-08-13 08:51 | Outpatient (AMB) | payer MEDICARE, SELFPAY ==
--- NOTE | 2024-08-13 08:57 | MHC.PC.OV ---
Vital Signs 08/13/24 08:58 Height 5 ft 6 in Weight 176 lb 4 oz BMI 28.4 BP 130/86 Blood Pressure Location Lt brachial Position Sitting Pulse 77 Pulse Source Pulse Oximeter Pulse Oximetry (%) 96 Oxygen Delivery Method Room Air Intake Visit Reasons: 3-4 months follow up Medical Equipment Sales Required: No Accompanied by: Self / Same As Patient Allergies levofloxacin [From LEVAQUIN] Adverse Reaction (Mild, Verified 08/13/24 09:18) TENDONITIS, JOINT PAIN Medication List - Last Reconciled 08/13/24 by Tarik Salguero MD amitriptyline 50 mg PO BEDTIME 90 days ascorbic acid (vitamin C) 100 mg PO DAILY atenolol 50 mg PO DAILY atorvastatin 10 mg PO DAILY cholecalciferol (vitamin D3) (Vitamin D3) 25 mcg PO DAILY cyanocobalamin (vitamin B-12) 1,000 mcg PO DAILY diclofenac sodium 75 mg PO BID PRN folic acid 1 tab PO DAILY loratadine (Claritin) 10 mg PO DAILY magnesium 250 mg PO DAILY omeprazole 20 mg PO DAILY 90 days oxycodone-acetaminophen 7.5-325 mg 1 tab PO Q8H PRN 30 days paroxetine HCl 20 mg PO QAM Tobacco use date assessed: 08/13/24 Fall risk assessment: No Falls in past year Last assessed Fall Risk: 08/13/24 Dental Screening Dental Screen Date: 08/13/24 Did you have a dental visit in the last 12 months?: Yes Did you have a dental problem in the last 6 months where you did not have access to dental care?: No Was dental information given to patient?: Patient has dentist HPI 3-4 months follow up HPI Details Patient comes in today for her follow up visit States that she has had recurrent cough and congestion for about 3 weeks now States that her cough is mostly non-productive and seems to be worse at night Reports that she is sometimes unable to sleep due to increased coughing and has noticed some SOB when she has recurrent fits of coughing She denies any headaches or dizziness Denies any chest pains No nausea/vomiting, no abdominal pain No change in bowel habits noted States that her chronic low back pain, neck pain and joint pains remain adequately controlled on her current Rx - needs her pain med Rx refilled today States that her left foot continues to bother her a lot (increased pain) and there are times often lately when she can hardly walk due to the pain - plans to try going back to see her rigging up worker (Dr. Morgan) to see what he can do Recalls that the cortisone injection he gave her over a year ago helped a lot for a while She had her follow up labs done a few days ago - to discuss her results [facility] Medical History Serum total bilirubin elevated Overweight (BMI 25.0-29.9) Depression Anxiety Osteoarthritis of knees, bilateral Cervical spondylosis Lumbar degenerative disc disease Fibromyalgia Vitamin D deficiency Leukopenia Exertional dyspnea Impaired fasting glucose Benign essential hypertension Pure hypercholesterolemia Surgical History S/P colonoscopy (~03/31/22) H/O left breast biopsy History of appendectomy Family History Father Past heart attack CVD (cardiovascular disease) Mother Hypertension Lung cancer Sister Breast cancer Brother Diabetes Maternal Aunt Diabetes Paternal Aunt Ovarian cancer Social History Household Members: Family Housing: House Are you a primary home care manager rn to a significant other at home: No Do you presently have visiting nurse or other home services: No Alcohol intake: current Alcohol intake frequency: holidays/special occasions only Patient Tobacco Use Status: Former Tobacco user e-Cigarette/Vaping Use: Never Used Second Hand Smoke Exposure: Yes service: No Current occupational status: retired 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 1. Little interest or pleasure in doing things: not at all 2. Feeling down, depressed, or hopeless: not at all 3. Trouble falling or staying asleep, or sleeping too much: not at all 4. Feeling tired or having little energy: not at all 5. Poor appetite or overeating: not at all 6. Feeling bad about yourself - or that you are a failure or have let yourself or your family down: not at all 7. Trouble concentrating on things, such as reading the newspaper or watching television: not at all 8. Moving or speaking so slowly that other people could have noticed. Or the opposite - being so fidgety or restless that you have been moving around a lot more than usual: not at all 9. Thoughts that you would be better off or of hurting yourself in some way: not at all Total score: 0 Depression Screening Interpretation: Negative Depression Screening Done: Yes 29744 - PHQ-9 Billing: Yes Source: Developed by Drs. Avery Hathaway, Shaniqua Ca, Nacho Contreras and colleagues, with an educational dayan from [employer]. Thrive Questionnaire Date Thrive assessed: 08/13/24 I am a: Patient What is your living situation today?: I have a steady place to live Within the past 12 months, did the food you bought not last and you didn't have the money to get more?: Never true Within the past 12 months, did you worry whether your food would run out before you got money to buy more?: Never true Do you have trouble paying for medicines?: No Do you have trouble getting transportation to medical appointments?: No Do you have trouble paying your heating and electricity bill?: No Do you have trouble taking care of your child, family member or friend?: No Do you have trouble with day-to-day activities such as bathing, preparing meals, shopping, managing finances, etc.?: No Are you currently unemployed and looking for a job?: No Are you interested in more education?: No Please select the resources that you would like help with: None Currently or been in a relationship where the following occur: No concerns reported THRIVE Score: 0 AUDIT C Alcohol Use Questionnaire (AUDIT-C) 1. How often do you have a drink containing alcohol?: Never 2. How many drinks containing alcohol do you have on a typical day when you are drinking?: 1 or 2 3. How often do you have six or more drinks on one occasion?: Never Total Score: 0 Score Reviewed/Action Taken: Yes JUDD-7 AMB Questionnaire JUDD-7 Date JUDD - 7 assessed: 08/13/24 Feeling nervous, anxious, or on edge: 0 = Not at all Not being able to stop or control worryin = Not at all Worrying too much about different things: 0 = Not at all Trouble relaxin = Not at all Being so restless that it is hard to sit still: 0 = Not at all Becoming easily annoyed or irritable: 0 = Not at all Feeling afraid as if something awful might happen: 0 = Not at all Total JUDD-7 score (0-4 normal; 5-9 mild; 10-14 moderate; 15-21 severe): 0 Source: Developed by Drs. Avery Hathaway, Shaniqua Ca, Nacho Contreras and colleagues, with an educational dayan from [employer]. Review of Systems Const Denies chills, Reports fatigue, Denies fever(s) and Denies headache(s) ENT Denies dysphagia, Denies dizziness, Denies otalgia, Denies headache(s), Reports nasal congestion (on and off), Reports neck pain, Denies odynophagia, Denies sinus pain and Reports sore throat (mild) Card Denies chest pain, Denies palpitations and Reports dyspnea on exertion (mild) Resp Reports chest congestion (mild), Reports cough (recurrent, non-productive/worse at night x 3 weeks), Reports dyspnea on exertion (mild) and Denies wheezing GI Denies abdominal pain, Denies constipation, Denies dysphagia, Denies heartburn, Denies diarrhea, Denies nausea, Denies odynophagia and Denies vomiting Denies difficulty voiding, Denies nocturia, Denies dysuria and Denies urinary urgency Musc Details: (+) chronic pain over the left foot (increasing) and over the right big toe Reports back pain (increasing), Reports arthralgias (over both knees; in the left foot recently (see HPI)), Reports neck pain and Reports stiffness Skin/Breast Denies rash Neuro Denies dizziness and Denies headache(s) Psych Denies anxiety and Denies depression Endo Reports fatigue and Denies palpitations Salvador/Lymph Denies easy bruising Aller/Immun Denies wheezing Physical exam (Primary Care) Vital Signs: Last Vital Signs Pulse 77 08/13/24 08:58 BP 130/86 08/13/24 08:58 Pulse Ox 96 08/13/24 08:58 Oxygen Delivery Method Room Air 08/13/24 08:58 BMI result Body Mass Index 28.4 Tobacco/Smoking Status: Tobacco use Status Tobacco use date assessed 08/13/24 08/13/24 09:03 Patient Tobacco Use Status Former Tobacco user 08/13/24 09:03 e-Cigarette/Vaping Use Never Used 08/13/24 09:03 PHQ-9: PHQ-9 Score PHQ-9: Total score 0 08/13/24 09:24 Depression Screening Interpretation: Negative Thrive Assessment: Date of Thrive Assessment Date Thrive assessed 08/13/24 08/13/24 09:03 Currently or been in a relationship where the following occur: No concerns reported Const General: no acute distress and alert HENMT Ears: TM's normal bilaterally and EAC's normal Throat: Yes posterior oropharynx normal and Yes tonsils normal (no TP congestion noted) Neck Neck: Yes no lymphadenopathy and Yes supple Thyroid: Thyroid normal Resp Auscultation: clear to auscultation bilaterally, no rales and no wheezes Cardio Rate: regular rate Rhythm: regular rhythm Heart sounds: no murmurs GI Palpation (GI): Soft to palpation and nontender Auscultation: normal bowel sounds General: Yes no CVA tenderness Back/Spine/Pelvis Back: no CVA tenderness Cervical Spine: Cervical spine tenderness Thoracic/Lumbar Spine: lumbar spinal tenderness Skin Rashes: no rashes Extrem General: Yes no clubbing, cyanosis or edema Right lower extremity: knee Details: tenderness; no swelling Left lower extremity: knee Details: tenderness; no swelling and foot Details: tenderness Location: of the lateral foot (at the base of the 5th toe) and no edema Results Reviewed Results Reviewed: Laboratory Tests 08/08/24 11:23 WBC 4.8 Hgb 14.1 Hct 42.8 Plt Count 284 Sodium 142 Potassium 4.0 Creatinine 0.95 Estimated GFR 58 Fasting Glucose 115 H Calcium 9.0 Total Bilirubin 1.8 H AST 27 ALT 25 Triglycerides 104 Cholesterol 154 LDL Cholesterol, Calc 87 HDL Cholesterol 47 Coding Level of Care Code Est Pt Level 4 (88432) Complex EM visit Add On G2211 Diagnoses Pure hypercholesterolemia E78.00 Benign essential hypertension I10 Impaired fasting glucose R73.01 Exertional dyspnea R06.00 Leukopenia, unspecified type D72.819 Leukopenia type: unspecified Vitamin D deficiency E55.9 Vitamin B12 deficiency E53.8 Degeneration of intervertebral disc of lumbar region with discogenic back pain M51.360 Disc-related pain type: discogenic back pain only Cervical spondylosis M47.812 Primary osteoarthritis of knees, bilateral M17.0 Closed fracture of left foot, sequela S92.902S Encounter type: sequela Fracture type: closed Fibromyalgia M79.7 Gastroesophageal reflux disease without esophagitis K21.9 Esophagitis presence: without esophagitis Serum total bilirubin elevated R17 Respiratory tract infection J98.8 Anxiety F41.9 Depression, unspecified depression type F32.9 Depression Type: unspecified Overweight (BMI 25.0-29.9) E66.3 Additional Codes PHQ-9 - 52643 - PHQ-9 Billing: Yes ([id number]) Assessment & Plan Assessment & Plan (1) Pure hypercholesterolemia: Code(s): E78.00 - Pure hypercholesterolemia, unspecified Category: Medical Plan: Results of her labs done a few days ago reviewed and discussed with patient Reinforced low cholesterol diet Continue Atorvastatin 10 mg QD Will recheck her labs and fasting lipids in 3 months for follow-up (2) Benign essential hypertension: Code(s): I10 - Essential (primary) hypertension Category: Medical Plan: Reinforced low-sodium diet - goal is systolic BP of at least 130 to 140 mm or less Continue Atenolol 25 mg QD (3) Impaired fasting glucose: Code(s): R73.01 - Impaired fasting glucose Category: Medical Plan: Patient's FBS was still elevated at 115 mg/dl on her recent labs but her HgbA1c was at 5.6% and 5.8% when checked previously Reinforced low calorie/low carb diet; exercise as tolerated (4) Exertional dyspnea: Code(s): R06.00 - Dyspnea, unspecified Category: Medical Plan: This has been ongoing for a few years now and is mostly unchanged from previous Is most likely multifactorial, including due to physical decompensation - patient feels that this has been stable lately and have not progressed at all over the past year or two until in the past few weeks since she's had a cold (see HPI) Lexiscan stress test and myocardial perfusion scan done on 12/11/2018 to check out her symptoms back then came out normal (5) Leukopenia: Code(s): D72.819 - Decreased white blood cell count, unspecified Category: Medical Qualifiers: Leukopenia type: unspecified Qualified Code(s): D72.819 - Decreased white blood cell count, unspecified Plan: Stable/corrected on her most recent CBC done a few days ago Follow-up with hematology/oncology as scheduled Will continue to monitor her CBC regularly (6) Vitamin D deficiency: Code(s): E55.9 - Vitamin D deficiency, unspecified Category: Medical Plan: Continue Vitamin D3 2000 units QD (7) Vitamin B12 deficiency: Code(s): E53.8 - Deficiency of other specified B group vitamins Category: Medical Plan: She continues to receive B12 injections from Dr. Knight every 3 months She is again advised to back down on her oral Vitamin B12 supplements to just once a week as her Vitamin B12 level remains high on her recent labs at over 1000 Follow up with hematology as scheduled (8) Lumbar degenerative disc disease: Code(s): M51.36 - Other intervertebral disc degeneration, lumbar region Category: Medical Qualifiers: Disc-related pain type: discogenic back pain only Qualified Code(s): M51.360 - Other intervertebral disc degeneration, lumbar region with discogenic back pain only Plan: Reinforced activity and weight lifting restrictions Repeat lumbar spine x-rays done back in February 2022 revealed degenerative disc changes L2-L3 and L3-L4 disc levels with ventral spondylosis. Grade 1 retrolisthesis L3 over L4 and L2 over L3. No acute fractures seen Continue Oxycodone-Acetaminophen 5-325 mg 1 tablet every 8 hours PRN for pain - Rx refilled She has been seeing Dr. Domínguez at [facility] for pain management - to continue following up with pain management there at [facility] as scheduled (9) Cervical spondylosis: Code(s): M47.812 - Spondylosis without myelopathy or radiculopathy, cervical region Category: Medical Plan: States that current medications are helping with her chronic neck pain as well (10) Primary osteoarthritis of knees, bilateral: Code(s): M17.0 - Bilateral primary osteoarthritis of knee Category: Medical Plan: X-rays of both knees done a few years ago revealed (+) OA changes bilaterally Follow up with [facility] as scheduled (11) Foot fracture, left: Code(s): S92.902A - Unspecified fracture of left foot, initial encounter for closed fracture Category: Medical Qualifiers: Encounter type: sequela Fracture type: closed Qualified Code(s): S92.902S - Unspecified fracture of left foot, sequela Plan: X-rays of the left foot done back in November 2023 revealed (+) mildly displaced fracture involving the head/neck junction of the fifth metatarsal Patient recalls that she twisted and strained her foot back then before she asked for x-rays to be ordered - states that her entire left foot was swollen and bruised for a while States that the swelling and bruising have long since subsided but she's had recurrent pain in her foot since and feels that her symptoms have gotten a lot worse lately She has received cortisone injections into her left heel area and left foot previously, with (+) relief of her symptoms Follow up with Dr. Morgan at [facility] as scheduled (12) Fibromyalgia: Code(s): M79.7 - Fibromyalgia Category: Medical Plan: Patient is again encouraged to continue with regular exercise and physical activity to help manage her fibromyalgia symptoms (13) GERD (gastroesophageal reflux disease): Code(s): K21.9 - Gastro-esophageal reflux disease without esophagitis Category: Medical Qualifiers: Esophagitis presence: without esophagitis Qualified Code(s): K21.9 - Gastro-esophageal reflux disease without esophagitis Plan: Dietary restrictions reinforced Continue Omeprazole 20 mg QD (14) Serum total bilirubin elevated: Code(s): R17 - Unspecified jaundice Category: Medical Plan: (?) Gilbert's Syndrome Abdominal US done on 01/12/2017 was normal; serum transaminases remain normal on her recent labs and patient is asymptomatic Will continue to monitor her serum bilirubin level regularly As her bilirubin level has been slowly but progressively going up over the past couple of years, will send her for a repeat abdominal ultrasound for further evaluation (15) Respiratory tract infection: Code(s): J98.8 - Other specified respiratory disorders Category: Medical Plan: Have discussed with patient that this is most likely viral in etiology and she feels that her respiratory symptoms are now slowly starting to improve Have advised her that she can take some OTC cough/cold meds PRN for symptomatic relief if she wants and to call us back if her symptoms persist or start to get worse again over the next week or two (16) Anxiety: Code(s): F41.9 - Anxiety disorder, unspecified Category: Medical Plan: Continue Lorazepam 0.5 mg 2 to 3 times a day as needed (17) Depression: Code(s): F32.9 - Major depressive disorder, single episode, unspecified Category: Medical Qualifiers: Depression Type: unspecified Qualified Code(s): F32.9 - Major depressive disorder, single episode, unspecified Plan: Continue Paroxetine 20 mg QD and Amitriptyline 50 mg Q HS Follow up with psychiatry as scheduled (18) Overweight (BMI 25.0-29.9): Code(s): E66.3 - Overweight Category: Medical Plan: Reinforced diet; exercise and weight loss are not realistic expectations at present due to her multiple physical issues and increasing left foot pain Plan Follow up in 3 months Orders: Orders US abdomen complete Today R17 - Unspecified jaundice Complete Blood Count Auto Diff 3 Months D64.9 - Anemia, unspecified Comprehensive [place]. Panel Fast 3 Months E78.00 - Pure hypercholesterolemia, unspecified Lipid Panel 3 Months E78.00 - Pure hypercholesterolemia, unspecified UA CC w/rflx Micro + Cult 3 Months R30.0 - Dysuria Hemoglobin A1c 3 Months R73.01 - Impaired fasting glucose Medications: Refilled oxycodone-acetaminophen 7.5-325 mg 1 tab PO Q8H PRN 90 tabs 0RF pain 30 days
[2024-08-13 08:58] VITALS: BP 130/86; PULSE 77; O2SAT 96; BMI 28.4
== END 2024-08-13 09:51 | disposition home or self-care (01) ==
PROVIDERS: PCP Internal Medicine; Visit Provider Internal Medicine
DX: E78.00 Pure hypercholesterolemia, unspecified (principal); I10 Essential (primary) hypertension; R73.01 Impaired fasting glucose; R06.00 Dyspnea, unspecified; D72.819 Decreased white blood cell count, unspecified; E55.9 Vitamin D deficiency, unspecified; E53.8 Deficiency of other specified B group vitamins; M51.360 Other intervertebral disc degeneration, lumbar region with discogenic back pain only; M47.812 Spondylosis without myelopathy or radiculopathy, cervical region; M17.0 Bilateral primary osteoarthritis of knee; S92.902S Unspecified fracture of left foot, sequela; M79.7 Fibromyalgia; K21.9 Gastro-esophageal reflux disease without esophagitis; R17 Unspecified jaundice; J98.8 Other specified respiratory disorders; F41.9 Anxiety disorder, unspecified; F32.9 Major depressive disorder, single episode, unspecified; E66.3 Overweight

== ENCOUNTER → 2024-08-13 08:51 | Outpatient (BNVA) | payer MEDICARE, SELFPAY | PROVIDERS: PCP Internal Medicine; Visit Provider Internal Medicine | DX: E78.00 Pure hypercholesterolemia, unspecified (principal); I10 Essential (primary) hypertension; R73.01 Impaired fasting glucose; D72.819 Decreased white blood cell count, unspecified; E55.9 Vitamin D deficiency, unspecified; E53.8 Deficiency of other specified B group vitamins; M51.360 Other intervertebral disc degeneration, lumbar region with discogenic back pain only; M47.812 Spondylosis without myelopathy or radiculopathy, cervical region; M17.0 Bilateral primary osteoarthritis of knee; S92.902S Unspecified fracture of left foot, sequela; M79.7 Fibromyalgia; K21.9 Gastro-esophageal reflux disease without esophagitis; R17 Unspecified jaundice; F41.9 Anxiety disorder, unspecified; F32.9 Major depressive disorder, single episode, unspecified; J98.8 Other specified respiratory disorders | CPT/HCPCS: 96127; 99212 ==

== ENCOUNTER 2024-09-06 12:27 | Outpatient (AMB) | payer MEDICARE, SELFPAY ==
--- OUTSIDE RECORDS SUMMARY | 2024-09-06 12:28 | XMS_ITS | Patient Health Record ---
Author Organization [facility] Address [address] [place] [address] Care Team Providers Care Therapist Phys Name Role Phone Oscar Salguero MDneth Primary Care Provider Blair Mckeon Jr Unavailable ALLERGIES Allergen (clinical drug ingredient) Drug/Non Drug Allergy documented on EMR Reaction Allergy Type Onset Date Status levofloxacin levoFLOXacin Unknown Drug Allergy A ctive REASON FOR REFERRAL No Information MEDICATIONS Medication SIG (Take, Route, Frequency, Duration) Notes Start Date End Date Status Amitriptyline HCl 50 MG 1 tablet at bedt юлия Orally Once a day Active oxyCODONE-Acetaminophen 10-325 MG 1 tablet as needed Orally every 6 hrs prn Active Atorvastatin Calcium 10 MG 1 tablet Oral ly Once a day Active Diclofenac Sodium 75 MG 1 tablet as need ed Orally once a day Active Omeprazole 20 MG 1 capsule 30 minutes before morning meal Orally once daily as needed Active PARoxetine HCl 20 MG 1 tablet in the morning Orally Once a day Active MiraLax (colon prep) 17 GM/SCOOP mixed with Gatorade or Crystal Light Orally begin at 5:00 p.m. the day before the procedure for 1 day 03/15/2022 Active Magnesium 250 MG 1 capsule with a ashley l Orally Once a day Active LORazepam 1 MG 1/2 tablet orally prn Active Lorazepam Not-Taking Vitamin D3 250 MCG (36007 UT) as directed Orally Once a day Active Atenolol 50 MG 1 tablet Orally Once a day Active Folic Acid 1 MG 1 tablet Orally Once a day Active Vitamin D Not-Taking IMMUNIZATIONS Vaccine Route Administration Date Status Comme nts Influenza Unknown 07/20/2021 Administered SOCIAL HISTORY Tobacco Use: Social History Observation Description Date Details (start date - stop date) Never Smoker NA - NA Sex Assigned At : Social History Observation Description Sex Assigned At Unknown Tobacco Use/Smoking Question Answer Notes Patient is a nonsmoker Alcohol Screen Question Answer Notes Did you have a drink contain ing alcohol in the past year? Yes How often did you have a dri nk containing alcohol in the past year? Monthly or less (1 point) How many drinks did you have on a typical day when you were drinking in the past year? 1 or 2 drinks (0 point) How often did you have 6 or more drinks on one occasion in the past year? 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 [address] [place] [address] [id number] JOSELYN DELAROSA Self - patient is the insured MEDICAL (GENERAL) HISTORY Medical History History ICD Code Hypertension Elevated cholesterol Elevated blood sugar Osteoarthritis Anxiety/depression Vitamin D deficiency Leukopenia Surgical History Surgery Date(Month/Year) appendectomy 2013 breast biopsy 1992
--- NOTE | 2024-09-06 12:35 | A.OFFPC_ITS ---
Vital Signs 09/06/24 12:39 Height 5 ft 6 in Weight 172 lb 2 oz BMI 27.8 BP 130/80 Blood Pressure Location Lt brachial Position Sitting Pulse 74 Pulse Source Pulse Oximeter Pulse Oximetry (%) 94 Oxygen Delivery Method Room Air Intake Visit Reasons: [facility] cataract LT09/25/24 & RT 10/04/24 Field Service Manager Required: No Accompanied by: Self / Same As Patient Allergies levofloxacin [From LEVAQUIN] Adverse Reaction (Mild, Verified 09/06/24 13:13) TENDONITIS, JOINT PAIN Medication List - Last Reconciled 09/06/24 by Tarik Salguero MD amitriptyline 50 mg PO BEDTIME 90 days ascorbic acid (vitamin C) 100 mg PO DAILY atenolol 50 mg PO DAILY atorvastatin 10 mg PO DAILY cholecalciferol (vitamin D3) (Vitamin D3) 25 mcg PO DAILY cyanocobalamin (vitamin B-12) 1,000 mcg PO DAILY diclofenac sodium 75 mg PO BID PRN folic acid 1 tab PO DAILY loratadine (Claritin) 10 mg PO DAILY magnesium 250 mg PO DAILY omeprazole 20 mg PO DAILY 90 days oxycodone-acetaminophen 7.5-325 mg 1 tab PO Q8H PRN 30 days paroxetine HCl 20 mg PO QAM Tobacco use date assessed: 09/06/24 Fall risk assessment: No Falls in past year Last assessed Fall Risk: 09/06/24 Dental Screening Dental Screen Date: 09/06/24 Did you have a dental visit in the last 12 months?: Yes Did you have a dental problem in the last 6 months where you did not have access to dental care?: No Was dental information given to patient?: Patient has dentist HPI [facility] cataract LT09/25/24 & RT 10/04/24 HPI Details Patient comes in today at the request of Dr. Julissa John for a preoperative medical examination for clearance for surgery She is scheduled for cataract extraction/phacoemulsification with IOL of the left eye under MAC on 09/25/2024, followed by the same procedure on the right eye a week later on 10/04/2024 Patient states that she feels well She denies any headaches or dizziness Denies any chest pains, no SOB No nausea/vomiting, no abdominal pain No change in bowel habits noted [facility] History Serum total bilirubin elevated Overweight (BMI 25.0-29.9) Depression Anxiety Osteoarthritis of knees, bilateral Cervical spondylosis Lumbar degenerative disc disease Fibromyalgia Vitamin D deficiency Leukopenia Exertional dyspnea Impaired fasting glucose Benign essential hypertension Pure hypercholesterolemia Surgical History S/P colonoscopy (~03/31/22) H/O left breast biopsy History of appendectomy Family History Father Past heart attack CVD (cardiovascular disease) Mother Hypertension Lung cancer Sister Breast cancer Brother Diabetes Maternal Aunt Diabetes Paternal Aunt Ovarian cancer Social History Household Members: Family Housing: House Are you a primary inspector health care facilities to a significant other at home: No Do you presently have visiting nurse or other home services: No Alcohol intake: current Alcohol intake frequency: holidays/special occasions only Patient Tobacco Use Status: Former Tobacco user e-Cigarette/Vaping Use: Never Used Second Hand Smoke Exposure: Yes service: No Current occupational status: retired 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 1. Little interest or pleasure in doing things: not at all 2. Feeling down, depressed, or hopeless: not at all 3. Trouble falling or staying asleep, or sleeping too much: not at all 4. Feeling tired or having little energy: not at all 5. Poor appetite or overeating: not at all 6. Feeling bad about yourself - or that you are a failure or have let yourself or your family down: not at all 7. Trouble concentrating on things, such as reading the newspaper or watching television: not at all 8. Moving or speaking so slowly that other people could have noticed. Or the opposite - being so fidgety or restless that you have been moving around a lot more than usual: not at all 9. Thoughts that you would be better off or of hurting yourself in some way: not at all Total score: 0 Depression Screening Interpretation: Negative Depression Screening Done: Yes 64025 - PHQ-9 Billing: Yes Source: Developed by Drs. Avery Hathaway, Shaniqua Ca, Nacho Contreras and colleagues, with an educational dayan from [employer] Thrive Questionnaire Date Thrive assessed: 09/06/24 I am a: Patient What is your living situation today?: I have a steady place to live Within the past 12 months, did the food you bought not last and you didn't have the money to get more?: Never true Within the past 12 months, did you worry whether your food would run out before you got money to buy more?: Never true Do you have trouble paying for medicines?: No Do you have trouble getting transportation to medical appointments?: No Do you have trouble paying your heating and electricity bill?: No Do you have trouble taking care of your child, family member or friend?: No Do you have trouble with day-to-day activities such as bathing, preparing meals, shopping, managing finances, etc.?: No Are you currently unemployed and looking for a job?: No Are you interested in more education?: No Please select the resources that you would like help with: None Currently or been in a relationship where the following occur: No concerns reported THRIVE Score: 0 AUDIT C Alcohol Use Questionnaire (AUDIT-C) 1. How often do you have a drink containing alcohol?: Monthly or less 2. How many drinks containing alcohol do you have on a typical day when you are drinking?: 1 or 2 3. How often do you have six or more drinks on one occasion?: Never Total Score: 1 Score Reviewed/Action Taken: Yes JUDD-7 AMB Questionnaire JUDD-7 Date JUDD - 7 assessed: 09/06/24 Feeling nervous, anxious, or on edge: 0 = Not at all Not being able to stop or control worryin = Not at all Worrying too much about different things: 0 = Not at all Trouble relaxin = Not at all Being so restless that it is hard to sit still: 0 = Not at all Becoming easily annoyed or irritable: 0 = Not at all Feeling afraid as if something awful might happen: 0 = Not at all Total JUDD-7 score (0-4 normal; 5-9 mild; 10-14 moderate; 15-21 severe): 0 Source: Developed by Drs. Avery Hathaway, Shaniqua Ca, Nacho Contreras and colleagues, with an educational dayan from [employer] Review of Systems Const Denies chills, Denies fatigue, Denies fever(s) and Denies headache(s) Eyes Reports blurry vision (bilaterally) ENT Denies dysphagia, Denies dizziness, Denies otalgia, Denies headache(s), Reports neck pain, Denies odynophagia and Denies sore throat Card Denies chest pain, Denies palpitations and Reports dyspnea on exertion (mild (chronic)) Resp Denies chest congestion, Denies cough, Reports dyspnea on exertion (mild (chronic)) and Denies wheezing GI Denies abdominal pain, Denies constipation, Denies dysphagia, Denies heartburn, Denies diarrhea, Denies nausea, Denies odynophagia and Denies vomiting Denies difficulty voiding, Denies nocturia, Denies dysuria and Denies urinary urgency Musc Details: (+) chronic pain over the left foot and over the right big toe Reports back pain (over the lower back (chronic)), Reports arthralgias (over both knees; in the left foot ), Reports neck pain and Reports stiffness Skin/Breast Denies rash Neuro Denies dizziness and Denies headache(s) Psych Denies anxiety and Denies depression Endo Denies fatigue and Denies palpitations Salvador/Lymph Denies easy bruising Aller/Immun Denies wheezing Physical exam (Primary Care) Vital Signs: Last Vital Signs Pulse 74 09/06/24 12:39 BP 130/80 09/06/24 12:39 Pulse Ox 94 09/06/24 12:39 Oxygen Delivery Method Room Air 09/06/24 12:39 BMI result Body Mass Index 27.8 Tobacco/Smoking Status: Tobacco use Status Tobacco use date assessed 09/06/24 09/06/24 12:45 Patient Tobacco Use Status Former Tobacco user 09/06/24 12:36 e-Cigarette/Vaping Use Never Used 09/06/24 12:36 PHQ-9: PHQ-9 Score PHQ-9: Total score 0 09/06/24 12:53 Depression Screening Interpretation: Negative Thrive Assessment: Date of Thrive Assessment Date Thrive assessed 12/19/24 12/19/24 12:45 Currently or been in a relationship where the following occur: No concerns reported Const General: no acute distress and alert HENMT Ears: TM's normal bilaterally and EAC's normal Throat: Yes posterior oropharynx normal and Yes tonsils normal (no TP congestion noted) Neck Neck: Yes supple and No lymphadenopathy Thyroid: Thyroid normal Resp Auscultation: clear to auscultation bilaterally, no rales and no wheezes Cardio Rate: regular rate Rhythm: regular rhythm Heart sounds: no murmurs GI Palpation (GI): Soft to palpation and nontender Auscultation: normal bowel sounds General: Yes no CVA tenderness Back/Spine/Pelvis Back: no CVA tenderness Cervical Spine: Cervical spine tenderness Thoracic/Lumbar Spine: lumbar spinal tenderness Skin Rashes: no rashes Extrem General: Yes no clubbing, cyanosis or edema Right lower extremity: knee Details: tenderness; no swelling Left lower extremity: knee Details: tenderness; no swelling and foot Details: tenderness Location: of the lateral foot (at the base of the 5th toe) and no edema Coding Level of Care Code Est Pt Level 4 (32869) Diagnoses Preoperative examination Z01.818 Age-related cataract of both eyes, unspecified age-related cataract type H25.9 Cataract type: age-related Age-related cataract type: unspecified Benign essential hypertension I10 Pure hypercholesterolemia E78.00 Impaired fasting glucose R73.01 Exertional dyspnea R06.00 Leukopenia, unspecified type D72.819 Leukopenia type: unspecified Vitamin D deficiency E55.9 Vitamin B12 deficiency E53.8 Degeneration of intervertebral disc of lumbar region with discogenic back pain M51.360 Disc-related pain type: discogenic back pain only Cervical spondylosis M47.812 Primary osteoarthritis of knees, bilateral M17.0 Fibromyalgia M79.7 Gastroesophageal reflux disease without esophagitis K21.9 Esophagitis presence: without esophagitis Serum total bilirubin elevated R17 Anxiety F41.9 Depression, unspecified depression type F32.9 Depression Type: unspecified Overweight (BMI 25.0-29.9) E66.3 Additional Codes PHQ-9 - 38934 - PHQ-9 Billing: Yes ([id number]) Assessment & Plan Assessment & Plan (1) Preoperative examination: Code(s): Z01.818 - Encounter for other preprocedural examination Category: Medical Plan: Patient presents with acceptable risks for planned low cardiac risk procedures She currently appears to be medically optimized and has no contraindications to undergo surgery at this point (2) Cataracts, bilateral: Code(s): H26.9 - Unspecified cataract Category: Medical Qualifiers: Cataract type: age-related Age-related cataract type: unspecified Qualified Code(s): H25.9 - Unspecified age-related cataract Plan: She is scheduled for cataract extraction/phacoemulsification with IOL of the left eye under MAC on 09/25/2024, followed by the same procedure on the right eye a week later on 10/04/[address] Julissa John (3) Benign essential hypertension: Code(s): I10 - Essential (primary) hypertension Category: Medical Plan: Reinforced low-sodium diet - goal is systolic BP of at least 130 to 140 mm or less Continue Atenolol 25 mg QD (4) Pure hypercholesterolemia: Code(s): E78.00 - Pure hypercholesterolemia, unspecified Category: Medical Plan: Reinforced low cholesterol diet Continue Atorvastatin 10 mg QD (5) Impaired fasting glucose: Code(s): R73.01 - Impaired fasting glucose Category: Medical Plan: Patient's FBS was still elevated at 115 mg/dl on her recent labs but her HgbA1c was normal at 5.6% and 5.8% when checked previously Reinforced low calorie/low carb diet; exercise as tolerated (6) Exertional dyspnea: Code(s): R06.00 - Dyspnea, unspecified Category: Medical Plan: This has been ongoing for a few years now and is mostly unchanged from previous Is most likely multifactorial, including due to physical deconditioning - patient feels that this has been stable lately and has not progressed at all over the past couple of years Lexiscan stress test and myocardial perfusion scan done on 12/11/2018 to check out her symptoms back then came out normal (7) Leukopenia: Code(s): D72.819 - Decreased white blood cell count, unspecified Category: Medical Qualifiers: Leukopenia type: unspecified Qualified Code(s): D72.819 - Decreased white blood cell count, unspecified Plan: Stable Follow-up with hematology/oncology as scheduled Will continue to monitor her CBC regularly (8) Vitamin D deficiency: Code(s): E55.9 - Vitamin D deficiency, unspecified Category: Medical Plan: Continue Vitamin D3 2000 units QD (9) Vitamin B12 deficiency: Code(s): E53.8 - Deficiency of other specified B group vitamins Category: Medical Plan: She continues to receive B12 injections from Dr. Knight every 3 months Continue oral Vitamin B12 supplements once a week Follow up with hematology as scheduled (10) Lumbar degenerative disc disease: Code(s): M51.36 - Other intervertebral disc degeneration, lumbar region Category: Medical Qualifiers: Disc-related pain type: discogenic back pain only Qualified Code(s): M51.360 - Other intervertebral disc degeneration, lumbar region with discogenic back pain only Plan: Reinforced activity and weight lifting restrictions Repeat lumbar spine x-rays done back in February 2022 revealed degenerative disc changes L2-L3 and L3-L4 disc levels with ventral spondylosis. Grade 1 retr olisthesis L3 over L4 and L2 over L3. No acute fractures seen Continue Oxycodone-Acetaminophen 5-325 mg 1 tablet every 8 hours PRN for pain She is seeing Dr. Domínguez at [facility] for pain management regularly (11) Cervical spondylosis: Code(s): M47.812 - Spondylosis without myelopathy or radiculopathy, cervical region Category: Medical Plan: States that current medications are helping with her chronic neck pain as well (12) Primary osteoarthritis of knees, bilateral: Code(s): M17.0 - Bilateral primary osteoarthritis of knee Category: Medical Plan: X-rays of both knees done a few years ago revealed (+) OA changes bilaterally Follow up with [facility] as scheduled (13) Fibromyalgia: Code(s): M79.7 - Fibromyalgia Category: Medical Plan: Patient is again encouraged to continue with regular exercise and physical activity to help manage her fibromyalgia symptoms better (14) GERD (gastroesophageal reflux disease): Code(s): K21.9 - Gastro-esophageal reflux disease without esophagitis Category: Medical Qualifiers: Esophagitis presence: without esophagitis Qualified Code(s): K21.9 - Gastro-esophageal reflux disease without esophagitis Plan: Dietary restrictions reinforced Continue Omeprazole 20 mg QD (15) Serum total bilirubin elevated: Code(s): R17 - Unspecified jaundice Category: Medical Plan: (?) Gilbert's Syndrome Abdominal US done on 01/12/2017 was normal; serum transaminases remain normal on her recent labs and patient is asymptomatic Will continue to monitor her serum bilirubin level regularly As her bilirubin level has been slowly but progressively going up over the past couple of years, she was sent for a repeat abdominal ultrasound for further evaluation - this is now scheduled to be done tomorrow morning at [facility] (16) Anxiety: Code(s): F41.9 - Anxiety disorder, unspecified Category: Medical Plan: Continue Lorazepam 0.5 mg 2 to 3 times a day as needed (17) Depression: Code(s): F32.9 - Major depressive disorder, single episode, unspecified Category: Medical Qualifiers: Depression Type: unspecified Qualified Code(s): F32.9 - Major depressive disorder, single episode, unspecified Plan: Continue Paroxetine 20 mg QD and Amitriptyline 50 mg Q HS Follow up with psychiatry as scheduled (18) Overweight (BMI 25.0-29.9): Code(s): E66.3 - Overweight Category: Medical Plan: Reinforced diet; exercise and weight loss are not realistic expectations at present due to her multiple physical issues and increasing left foot pain Plan Patient is currently medically optimized and has no contraindications to undergo staged cataract procedures as planned - she is MEDICALLY CLEARED for surgery Follow up as scheduled in October 2024
[2024-09-06 12:39] VITALS: BP 130/80; PULSE 74; O2SAT 94; BMI 27.8
== END 2024-09-06 12:56 | disposition home or self-care (01) ==
PROVIDERS: PCP Internal Medicine; Visit Provider Internal Medicine
DX: Z01.818 Encounter for other preprocedural examination (principal); H25.9 Unspecified age-related cataract; I10 Essential (primary) hypertension; E78.00 Pure hypercholesterolemia, unspecified; R73.01 Impaired fasting glucose; R06.00 Dyspnea, unspecified; D72.819 Decreased white blood cell count, unspecified; E55.9 Vitamin D deficiency, unspecified; E53.8 Deficiency of other specified B group vitamins; M51.360 Other intervertebral disc degeneration, lumbar region with discogenic back pain only; M47.812 Spondylosis without myelopathy or radiculopathy, cervical region; M17.0 Bilateral primary osteoarthritis of knee; M79.7 Fibromyalgia; K21.9 Gastro-esophageal reflux disease without esophagitis; R17 Unspecified jaundice; F41.9 Anxiety disorder, unspecified; F32.9 Major depressive disorder, single episode, unspecified; E66.3 Overweight

== ENCOUNTER → 2024-09-06 12:27 | Outpatient (BNVA) | payer MEDICARE, SELFPAY | PROVIDERS: PCP Internal Medicine; Visit Provider Internal Medicine | DX: Z01.818 Encounter for other preprocedural examination (principal); H25.9 Unspecified age-related cataract; I10 Essential (primary) hypertension; E78.00 Pure hypercholesterolemia, unspecified; R73.01 Impaired fasting glucose; R06.00 Dyspnea, unspecified; D72.819 Decreased white blood cell count, unspecified; E55.9 Vitamin D deficiency, unspecified; E53.8 Deficiency of other specified B group vitamins; M51.360 Other intervertebral disc degeneration, lumbar region with discogenic back pain only; M47.812 Spondylosis without myelopathy or radiculopathy, cervical region; M17.0 Bilateral primary osteoarthritis of knee; K21.9 Gastro-esophageal reflux disease without esophagitis; M79.7 Fibromyalgia; R17 Unspecified jaundice; F41.9 Anxiety disorder, unspecified; F32.9 Major depressive disorder, single episode, unspecified; E66.3 Overweight; Z68.27 Body mass index [BMI] 27.0-27.9, adult | CPT/HCPCS: 96127; 99212 ==

== ENCOUNTER 2024-09-07 08:50 | Outpatient (REF) | payer MEDICARE, SELFPAY ==
--- NOTE | ~2024-09-07 | US_ITS ---
EXAMINATION: US ABDOMEN COMPLETE CLINICAL INFORMATION: Unspecified jaundice. COMPARISON: Ultrasound abdomen complete 01/12/2017. TECHNIQUE: Real-time imaging of the abdominal viscera. FINDINGS: PANCREAS: The visualized portion of the pancreas head and body are normal, portion of the pancreatic body and tail, not visualized are obscured by bowel gas. ABDOMINAL AORTA: The proximal, mid, and distal segments are normal in caliber. INFERIOR VENA CAVA: Visualized portions are normal. LIVER: The liver is normal in size. The liver contour is normal. Increased echogenicity of the liver parenchyma, this can be seen in the setting of hepatic steatosis or liver parenchymal disease. No focal hepatic lesion. There is no intrahepatic biliary duct dilatation seen. GALLBLADDER: The gallbladder is physiologically distended without evidence of stones, sludge, polyps, wall thickening or pericholecystic fluid. COMMON BILE DUCT: Normal in caliber measuring 0.4 cm in diameter. RIGHT KIDNEY: No hydronephrosis. No renal calculi or focal parenchymal lesions. The kidney measures 9.3 cm in maximum dimension. LEFT KIDNEY: No hydronephrosis. No renal calculi or focal parenchymal lesions. The kidney measures 8.7 cm in maximum dimension. SPLEEN: The spleen measures 9.1 cm in maximum dimension. FREE FLUID: None. US/US abdomen complete IMPRESSION: * Increased echogenicity of the liver parenchyma, this can be seen in the setting of hepatic steatosis or liver parenchymal disease. * No ultrasound evidence of intra or extrahepatic biliary dilatation. Electronically signed by: Darek Rios MD 09/10/2024 06:07 PM [facility]
--- OUTSIDE RECORDS SUMMARY | 2024-09-07 09:01 | XMS_ITS | Patient Health Record ---
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 [address] [place] [address] [id number] JOSELYN DELAROSA Self - patient is the insured MEDICAL (GENERAL) HISTORY Medical History History ICD Code Hypertension Elevated cholesterol Elevated blood sugar Osteoarthritis Anxiety/depression Vitamin D deficiency Leukopenia Surgical History Surgery Date(Month/Year) appendectomy 2013 breast biopsy 1992
== END 2024-09-07 08:51 | disposition home or self-care (01) ==
LOC: HO.US 08:50
PROVIDERS: PCP Internal Medicine; Visit Provider Internal Medicine
DX: R17 Unspecified jaundice (principal)
CPT/HCPCS: 76700

== ENCOUNTER 2024-10-24 13:58 | Outpatient (REF) | payer MEDICARE, SELFPAY ==
[2024-10-24 14:10] LABS: MANUAL DIFF FLAG NO
[2024-10-24 14:39] LABS: Appearance Urine Turbid; Color Urine Dark Yellow; Glucose Urine UA Negative (Negative); Leukocyte Esterase Urine Small (1+) (Negative); Nitrite Urine Negative (Negative); Specific Gravity - Urine >= 1.030 (1.005-1.025); UMIC TRIGGER UACC YES; Urine Blood Negative (Negative); Urine Ketones Trace mg/dL (Negative); Urine Protein 30 (1+) mg/dL (Neg-Trace)
[2024-10-24 14:44] LABS: Basophils Percent Auto 0.5 % (0-2); Eosinophils Absolute Auto 0.2 X10*3/uL (0.0-0.4); Eosinophils Percent Auto 3.5 % (0-4); Hematocrit 41.1 % (37.0-47.0); Hemoglobin 13.7 g/dl (12.0-16.0); Imm Gran Abs Auto 0.01 X10*3/uL (0.00-0.03); Imm Gran Pct Auto 0.2 % (0.0-0.4); Lymphocytes Absolute Auto 1.8 X10*3/uL (1.2-4.9); Mean Corpuscular HGB Conc 33.3 g/dl (31.0-35.0); Mean Corpuscular Hemoglobin 32.5 pg (27.0-33.0); Mean Corpuscular Volume 97.6 fL (80.0-98.0); Mean Platelet Volume 10.3 fL (9.4-12.3); Monocytes Absolute Auto 0.2 X10*3/uL (0.1-1.2); Monocytes Percent Auto 5.4 % (2-11); Neutrophils Percent Auto 47.4 % (45-73); Platelet Count 298 X10*3/uL (160-400); Red Blood Count 4.21 X10*6/uL (4.20-5.50); Red Cell Distribution Width 13.3 % (11.0-16.0); White Blood Count 4.2 X10*3/uL (4.8-10.8)
[2024-10-24 14:49] LABS: Bacteria Urine 3+ (None Seen); Hyaline Casts Urine 0-2 /LPF (0-2); RBC Urine 0-2 /HPF (0-2); UACC Culture Trigger YES
[2024-10-24 14:59] LABS: Estimated Average Glucose 117 mg/dL; Hemoglobin A1C 136.3746 umol/L; Hemoglobin A1c % 5.7 % (<6.0); Total Hemoglobin (HGBA1C) 3538.0925 umol/L
[2024-10-24 15:15] LABS: Alanine Aminotransferase 17 U/L (0-31); Albumin Level 4.4 g/dL (3.5-5.0); Alkaline Phosphatase 64 U/L (39-117); Anion Gap 11 (12-20); Aspartate Amino Transferase 20 U/L (5-31); Bilirubin Total 1.3 mg/dL (0.0-1.0); Blood Urea Nitrogen 18 mg/dL (9-16); Calcium 8.9 mg/dL (8.4-10.2); Carbon Dioxide 28 mmol/L (22-29); Chloride 103 mmol/L (96-108); Cholesterol 188 mg/dL (<200); Estimated Glomerular Filt Rate > 60; Glucose Fasting 103 mg/dL (60-99); HDL Cholesterol 57 mg/dL (>40); LDL Cholesterol Calculated 101 mg/dL (<100); Sodium 138 mmol/L (135-145); Total Protein 7.5 g/dL (6.5-8.0); Triglycerides 150 mg/dL (<150)
--- OUTSIDE RECORDS SUMMARY | 2024-10-24 15:17 | XMS_ITS | Clinical Summary ---
Author Organization [facility] Address [address] [place] [address] Care Team Providers Care Shipwright Helper Name Role Phone Tarik Zimmerman MD Primary Care Provider Social History Tobacco Use Types Packs/Day Years Used Date Smoking Tobacco: Never Assessed Sex and Gender Information Value Date Recorded Sex Assigned at Not on file Gender Identity Not on file Sexual Orientation Not on file Obstetrics History Plan of Treatment Health Maintenance Due Date Last Done Comments DTaP,Tdap,and Td Vaccines (1 - Tdap) 1973 Zoster Vaccines (1 of 2) 2004 Pneumococcal Vaccine: 65+ Years (1 of 1 - PCV) 2019 Colorectal Cancer Screening: Colonoscopy 08/22/2022 Depression Screening 08/22/2022 Falls Risk Assessment 08/22/2022 Hepatitis C Screening 08/22/2022 Osteoporosis Screening (Bone Density Screening) 08/22/2022 Social Influencers of Health Screening 08/22/2022 COVID-19 Vaccine ( season) 2024 Influenza Vaccine (#1) 2024 Breast Cancer Screening 06/27/2026 06/27/20 24, 06/06/2023, 06/01/2022, Additional history exists RSV Immunization Patients 60+ Years Old (1 - 1-dose 75+ series) 2029 HIB Vaccines Aged Out No longer eligi ble based on patient's age to complete this topic HPV Vaccines Aged Out No longer eligi ble based on patient's age to complete this topic Hepatitis A Vaccines Aged Out No long er eligible based on patient's age to complete this topic Hepatitis B Vaccines Aged Out No long er eligible based on patient's age to complete this topic IPV Vaccines Aged Out No longer eligi ble based on patient's age to complete this topic MMR Vaccines Aged Out No longer eligi ble based on patient's age to complete this topic Meningococcal ACWY Vaccine Aged Out N o longer eligible based on patient's age to complete this topic RSV Immunization Patients Under 20 months Aged Out No longer eligible based on patient's age to complete this topic Varicella Vaccines Aged Out No longer eligible based on patient's age to complete this topic Procedures Procedure Name Priority Date/Time Associated Diagnosis Comments [facility] SCREENING DIGITAL Routine 06/27/2024 10:27 AM EDT Encounter for screening mammogram for malignant neoplasm of breast from Last 3 Months or Most Recently Relevant to Health Maintenance Results * [facility] SCREENING DIGITAL (06/27/2024 10:27 AM EDT) Anatomical Region Laterality Modality Mammography 06/27/2024 8:03 AM EDT Narrative 06/27/2024 10:[address] [facility] Diagnostic Imaging Department [address] [place] [address] Patient: ??TONIA FRAGA ?/Age/Sex: 1955 - Unit#: ??[id number] ? Location/Status: ??SPDIMAM/REG CLI ? Mnemonic/Ordering Site: ??DIGSC/SPMAM Ordering Physician: ??TARIK ZIMMERMAN MD [facility] Screening Digital - 06/27/24911 Report Status:Signed EXAM: [facility] Screening Digital EXAM DATE AND TIME: 06/27/2024 8:31 AM HISTORY: ??Screening. Excisional biopsy of the left breast in 1997, pathology benign. Sister had breast carcinoma at age 40. COMPARISON: ??06/06/23, 06/01/22, 05/28/21 TECHNIQUE: Bilateral digital breast tomosynthesis was performed in the CC and MLO projections. Computer aided detection with [employer] 3D 3.1 was employed. TISSUE DENSITY: b. There are scattered areas of fibroglandular density. FINDINGS: Mild architectural distortion is again seen in the upper outer left breast, middle depth, stable, consistent with surgical scar. No suspicious masses, grouped microcalcifications, or developing architectural distortion are seen. A coarse, benign calcification is again seen in the upper outer right breast. The skin and vascularity are unremarkable. IMPRESSION: Stable mammographic appearance of the breasts. ??No evidence of malignancy is seen. A negative mammogram in the presence of a clinically suspicious palpable abnormality does not preclude the possibility of malignancy or alter the indications for biopsy. BI-RADS: ??Category 2: Benign RECOMMENDATION(S): 1: Routine screening mammogram BILATERAL in 1 year. Mammogram performed at [facility] at [address] [address] Dictating Physician: ??HARLEEN DE LA CRUZ MD Electronically Signed by: ??HARLEEN DE LA CRUZ MD Dic Date/Time: ??06/27/24 1025 Sign date/Time: ??06/27/24 1027 Procedure Note Harleen De La Cruz MD - 07/17/2024 [facility] Diagnostic Imaging Department [address] [place] [address] Patient: TONIA FRAGA/Age/Sex: 1955 - 68 - F Unit#: [id number] Location/Status: SPDIMAM/REG CLI Mnemonic/Ordering Site: [facility] Ordering Physician: TARIK ZIMMERMAN MD [facility] Screening Digital - 06/27/24 - 911 Report Status:Signed EXAM: [facility] Screening Digital EXAM DATE AND TIME: 06/27/2024 8:31 AM HISTORY: Screening. Excisional biopsy of the left breast in 1997,pathology benign. Sister had breast carcinoma at age 40. COMPARISON: 06/06/23, 06/01/22, 05/28/21 TECHNIQUE: Bilateral digital breast tomosynthesis was performed in the CCand MLO projections. Computer aided detection with [employer] 3D 3.1was employed. TISSUE DENSITY: b. There are scattered areas of fibroglandular density. FINDINGS: Mild architectural distortion is again seen in the upper outer leftbreast, middle depth, stable, consistent with surgical scar. No suspicious masses, grouped microcalcifications, or developingarchitectural distortion are seen. A coarse, benign calcification is again seen in theupper outer right breast. The skin and vascularity are unremarkable. IMPRESSION: Stable mammographic appearance of the breasts. No evidence of malignancyis seen. A negative mammogram in the presence of a clinically suspicious palpable abnormality does not preclude the possibility of malignancy or alter the indications for biopsy. BI-RADS: Category 2: Benign RECOMMENDATION(S): 1: Routine screening mammogram BILATERAL in 1 year. Mammogram performed at [facility] [place] [address] Dictating Physician: HARLEEN DE LA CRUZ MD Electronically Signed by: HARLEEN DE LA CRUZ MD Dic Date/Time: 06/27/24 1025 Sign date/Time: 06/27/24 1027 Tarik Zimmerman MD IMG BI PROCEDURES from Last 3 Months or Most Recently Relevant to Health Maintenance Care Teams Shipwright Helper Relationship Specialty Start Date End Date Tarik Zimmerman MD [address] [place] [address] [address] DANIELLE Mendenhall PCP - General Internal Medicine 03/31/17
== END 2024-10-24 13:59 | disposition home or self-care (01) ==
LOC: HO.LAB 13:58
PROVIDERS: PCP Internal Medicine; Visit Provider Internal Medicine
DX: D64.9 Anemia, unspecified (principal); E78.00 Pure hypercholesterolemia, unspecified; R73.01 Impaired fasting glucose; R30.0 Dysuria
CPT/HCPCS: 36415; 80053; 80061; 81001; 83036; 85025; 87086

== ENCOUNTER → 2024-10-26 12:16 | Outpatient (AMB) | payer MEDICARE, SELFPAY | END | disposition home or self-care (01) | PROVIDERS: PCP Internal Medicine; Visit Provider Internal Medicine ==

== ENCOUNTER → 2024-10-26 12:16 | Outpatient (BNVA) | payer MEDICARE, SELFPAY | PROVIDERS: PCP Internal Medicine; Visit Provider Internal Medicine | DX: E78.00 Pure hypercholesterolemia, unspecified (principal); R73.01 Impaired fasting glucose; I10 Essential (primary) hypertension; R06.00 Dyspnea, unspecified; D72.819 Decreased white blood cell count, unspecified; E55.9 Vitamin D deficiency, unspecified; E53.8 Deficiency of other specified B group vitamins; M51.360 Other intervertebral disc degeneration, lumbar region with discogenic back pain only; M47.812 Spondylosis without myelopathy or radiculopathy, cervical region; M17.0 Bilateral primary osteoarthritis of knee; S92.902S Unspecified fracture of left foot, sequela; M79.7 Fibromyalgia; K21.9 Gastro-esophageal reflux disease without esophagitis; F41.9 Anxiety disorder, unspecified; R17 Unspecified jaundice; F32.9 Major depressive disorder, single episode, unspecified; E66.3 Overweight | CPT/HCPCS: 96127; 99212 ==

== ENCOUNTER 2025-03-15 15:30 | Outpatient (REF) | payer MEDICARE, SELFPAY ==
--- OUTSIDE RECORDS SUMMARY | 2025-03-15 15:32 | XMS_ITS | Patient Health Record ---
Author Organization [facility] Address [address] [place] [address] Care Team Providers Care It Auditor Name Role Phone Oscar Salguero MDneth Primary Care Provider Blair Mckeon Jr Unavailable [phone] Allergies Allergen (clinical drug ingredient) Drug/Non Drug Allergy documented on EMR Reaction Allergy Type Onset Date Status levofloxacin levoFLOXacin Unknown Drug Allergy A ctive Reason For Referral No Information Medications Medication SIG (Take, Route, Frequency, Duration) Notes [...] Active Lorazepam Not-Taking Vitamin D3 250 MCG (78337 UT) as directed Orally Once a day Active Atenolol 50 MG 1 tablet Orally Once a day Active Folic Acid 1 MG 1 tablet Orally Once a day Active Vitamin D Not-Taking Immunizations Vaccine Route Administration Date Status Comme nts Influenza Unknown 07/20/2021 Administered Social History Tobacco Use: Social History Observation Description Date Details (start date - stop date) Never Smoker NA - NA Tobacco Use/Smoking Question Answer Notes Patient is [...] Never (0 point) Points 1 Interpretation Negative Problems Problem Type SNOMED Code ICD Code Onset Dates Problem Status W/U Status Risk Notes Problem 669546552 Colon cancer screening (Z12.11) Active confirmed 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 [address] [place] [address] [phone] [id number] [place] J[place]N Self - patient is the insured Medical (General) History Medical History History ICD Code Hypertension Elevated cholesterol Elevated blood sugar Osteoarthritis Anxiety/depression Vitamin D deficiency Leukopenia Surgical History Surgery Date(Month/Year) appendectomy 2013 breast biopsy 1992
[2025-03-15 15:45] LABS: MANUAL DIFF FLAG NO
[2025-03-15 16:48] LABS: Appearance Urine Turbid; Color Urine Yellow; Glucose Urine UA Negative (Negative); Leukocyte Esterase Urine Small (1+) (Negative); Nitrite Urine Negative (Negative); PH 5.5 (5.0-9.0); Specific Gravity - Urine 1.025 (1.005-1.025); UMIC TRIGGER UACC YES; Urine Blood Negative (Negative); Urine Ketones Trace mg/dL (Negative); Urine Protein Trace mg/dL (Neg-Trace)
[2025-03-15 16:55] LABS: Basophils Percent Auto 0.3 % (0-2); Eosinophils Absolute Auto 0.2 X10*3/uL (0.0-0.4); Eosinophils Percent Auto 4.2 % (0-4); Hemoglobin 13.4 g/dl (12.0-16.0); Imm Gran Abs Auto 0.01 X10*3/uL (0.00-0.03); Imm Gran Pct Auto 0.3 % (0.0-0.4); Lymphocytes Absolute Auto 1.7 X10*3/uL (1.2-4.9); Lymphocytes Percent Auto 46.5 % (20-40); Mean Corpuscular HGB Conc 33.5 g/dl (31.0-35.0); Mean Corpuscular Hemoglobin 32.5 pg (27.0-33.0); Mean Corpuscular Volume 97.1 fL (80.0-98.0); Mean Platelet Volume 11.2 fL (9.4-12.3); Monocytes Absolute Auto 0.2 X10*3/uL (0.1-1.2); Monocytes Percent Auto 6.2 % (2-11); Neutrophils Absolute Auto 1.5 x10*3/uL (2.0-8.3); Neutrophils Percent Auto 42.5 % (45-73); Platelet Count 285 X10*3/uL (160-400); Red Blood Count 4.12 X10*6/uL (4.20-5.50); Red Cell Distribution Width 12.8 % (11.0-16.0); White Blood Count 3.6 X10*3/uL (4.8-10.8)
[2025-03-15 17:08] LABS: Bacteria Urine 3+ (None Seen); Hyaline Casts Urine 0-2 /LPF (0-2); RBC Urine 0-2 /HPF (0-2); Squamous Epithelial Cell Urine >20 /HPF (0-2); UACC Culture Trigger YES; WBC Urine 21-50 /HPF (0-5)
[2025-03-15 17:23] LABS: Alanine Aminotransferase 18 U/L (0-31); Albumin Level 4.7 g/dL (3.5-5.0); Alkaline Phosphatase 71 U/L (39-117); Anion Gap 13 (12-20); Aspartate Amino Transferase 25 U/L (5-31); Bilirubin Total 1.7 mg/dL (0.0-1.0); Blood Urea Nitrogen 14 mg/dL (9-16); Calcium 9.1 mg/dL (8.4-10.2); Carbon Dioxide 27 mmol/L (22-29); Chloride 105 mmol/L (96-108); Cholesterol 160 mg/dL (<200); Estimated Glomerular Filt Rate > 60; Glucose Fasting 102 mg/dL (60-99); HDL Cholesterol 53 mg/dL (>40); LDL Cholesterol Calculated 86 mg/dL (<100); Potassium 3.9 mmol/L (3.3-5.1); Sodium 141 mmol/L (135-145); Total Protein 7.2 g/dL (6.5-8.0); Triglycerides 109 mg/dL (<150)
[2025-03-15 17:38] LABS: TSH reflex Free T4 1.82 uIU/mL (0.32-4.0); Vitamin D 25-OH Total 28.2 ng/mL (>30)
== END 2025-03-15 15:31 | disposition home or self-care (01) ==
LOC: HO.LAB 15:30
PROVIDERS: PCP Internal Medicine; Visit Provider Internal Medicine
DX: E78.00 Pure hypercholesterolemia, unspecified (principal); E55.9 Vitamin D deficiency, unspecified; D64.9 Anemia, unspecified; R30.0 Dysuria
CPT/HCPCS: 36415; 80053; 80061; 81001; 82306; 84443; 85025; 87086

== ENCOUNTER 2025-03-20 14:35 | Outpatient (AMB) | payer MEDICARE, SELFPAY ==
[2025-03-20 14:47] VITALS: BP 126/80; PULSE 78; O2SAT 96; BMI 28.6
--- NOTE | 2025-03-20 14:47 | A.OFFPC_ITS ---
Vital Signs 03/20/25 14:47 Height 5 ft 6 in Weight 177 lb 8 oz BMI 28.6 BP 126/80 Blood Pressure Location Lt brachial Position Sitting Pulse 78 Pulse Source Pulse Oximeter Pulse Oximetry (%) 96 Oxygen Delivery Method Room Air Intake Visit Reasons: annual exam Director Of Managed Services Required: No Accompanied by: Self / Same As Patient Allergies levofloxacin (From LEVAQUIN) Adverse Reaction (Mild, Verified 03/20/25 15:14) TENDONITIS, JOINT PAIN Medication List - Last Reconciled 03/20/25 by Tarik Salguero MD amitriptyline 50 mg PO BEDTIME 90 days ascorbic acid (vitamin C) 100 mg PO DAILY atenolol 50 mg PO DAILY atorvastatin 10 mg PO DAILY cholecalciferol (vitamin D3) (Vitamin D3) 25 mcg PO DAILY cyanocobalamin (vitamin B-12) 1,000 mcg PO DAILY diclofenac sodium 75 mg PO BID PRN folic acid 1 tab PO DAILY loratadine (Claritin) 10 mg PO DAILY magnesium 250 mg PO DAILY omeprazole 20 mg PO DAILY 90 days oxycodone-acetaminophen 7.5-325 mg 1 tab PO Q8H PRN 30 days paroxetine HCl 20 mg PO QAM Tobacco use date assessed: 03/20/25 Fall risk assessment: No Falls in past year Last assessed Fall Risk: 03/20/25 Dental Screening Dental Screen Date: 03/20/25 Did you have a dental visit in the last 12 months?: Yes Did you have a dental problem in the last 6 months where you did not have access to dental care?: No Was dental information given to patient?: Patient has dentist HPI annual exam HPI Details Patient comes in today for her annual physical examination States that she feels okay She denies any headaches or dizziness Denies any chest pains, no SOB No nausea/vomiting, no abdominal pain No change in bowel habits noted She denies any acute urinary symptoms except for some vague symptoms of mild terminal dysuria at times for the past few days Needs her pain medication Rx refilled today She had her follow up labs done a few days ago - to discuss her results She had her repeat colonoscopy last done back on 03/31/[address] - was advised that she will need repeat colonoscopy in 10 years (2031) Her annual mammogram was last done at [facility] in June 2024 - mammogram was normal She has stated previously that she no longer needs to keep up with her yearly gynecology exam and pap smear at her age but she has since reconsidered this and now wants to see gynecology again to have a yearly exam done [facility] Medical History Serum total bilirubin elevated Overweight (BMI 25.0-29.9) Depression Anxiety Osteoarthritis of knees, bilateral Cervical spondylosis Lumbar degenerative disc disease Fibromyalgia Vitamin D deficiency Leukopenia Exertional dyspnea Impaired fasting glucose Benign essential hypertension Pure hypercholesterolemia Surgical History S/P colonoscopy (~03/31/22) H/O left breast biopsy History of appendectomy Family History Father Past heart attack CVD (cardiovascular disease) Mother Hypertension Lung cancer Sister Breast cancer Brother Diabetes Maternal Aunt Diabetes Paternal Aunt Ovarian cancer Social History Household Members: Family Housing: House Are you a primary patient care manager to a significant other at home: No Do you presently have visiting nurse or other home services: No Alcohol intake: current Alcohol intake frequency: holidays/special occasions only Patient Tobacco Use Status: Former Tobacco user e-Cigarette/Vaping Use: Never Used Second Hand Smoke Exposure: Yes service: No Current occupational status: retired 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 1. Little interest or pleasure in doing things: not at all 2. Feeling down, depressed, or hopeless: not at all 3. Trouble falling or staying asleep, or sleeping too much: several days 4. Feeling tired or having little energy: several days 5. Poor appetite or overeating: not at all 6. Feeling bad about yourself - or that you are a failure or have let yourself or your family down: not at all 7. Trouble concentrating on things, such as reading the newspaper or watching television: not at all 8. Moving or speaking so slowly that other people could have noticed. Or the opposite - being so fidgety or restless that you have been moving around a lot more than usual: not at all 9. Thoughts that you would be better off or of hurting yourself in some way: not at all Total score: 2 Depression Screening Interpretation: Negative Depression Screening Done: Yes 31280 - PHQ-9 Billing: Yes Source: Developed by Drs. Avery Hathaway, Shaniqua Ca, Nacho Contreras and colleagues, with an educational dayan from [employer]. Thrive Questionnaire Date Thrive assessed: 03/20/25 I am a: Patient What is your living situation today?: I have a steady place to live Within the past 12 months, did the food you bought not last and you didn't have the money to get more?: Never true Within the past 12 months, did you worry whether your food would run out before you got money to buy more?: Never true Do you have trouble paying for medicines?: No Do you have trouble getting transportation to medical appointments?: No Do you have trouble paying your heating and electricity bill?: No Do you have trouble taking care of your child, family member or friend?: No Do you have trouble with day-to-day activities such as bathing, preparing meals, shopping, managing finances, etc.?: No Are you currently unemployed and looking for a job?: No Are you interested in more education?: No Please select the resources that you would like help with: None Currently or been in a relationship where the following occur: No concerns reported THRIVE Score: 0 AUDIT C Alcohol Use Questionnaire (AUDIT-C) 1. How often do you have a drink containing alcohol?: 2-4 times a month 2. How many drinks containing alcohol do you have on a typical day when you are drinking?: 1 or 2 3. How often do you have six or more drinks on one occasion?: Never Total Score: 2 Score Reviewed/Action Taken: Yes JUDD-7 AMB Questionnaire JUDD-7 Date JUDD - 7 assessed: 03/20/25 Feeling nervous, anxious, or on edge: 0 = Not at all Not being able to stop or control worryin = Not at all Worrying too much about different things: 0 = Not at all Trouble relaxin = Not at all Being so restless that it is hard to sit still: 0 = Not at all Becoming easily annoyed or irritable: 0 = Not at all Feeling afraid as if something awful might happen: 0 = Not at all Total JUDD-7 score (0-4 normal; 5-9 mild; 10-14 moderate; 15-21 severe): 0 Source: Developed by Drs. Avery Hathaway, Shaniqua Ca, Nacho Contreras and colleagues, with an educational dayan from [employer]. Review of Systems Const Denies chills, Denies fatigue, Denies fever(s) and Denies headache(s) Eyes Denies blurry vision, Denies change in vision, Denies irritation and Denies itchy eyes ENT Denies dysphagia, Denies dizziness, Denies otalgia, Denies headache(s), Reports neck pain, Denies odynophagia and Denies sore throat Card Denies chest pain, Denies palpitations and Denies dyspnea Resp Denies chest congestion, Denies cough, Denies dyspnea and Denies wheezing GI Denies abdominal pain, Denies constipation, Denies dysphagia, Denies heartburn, Denies diarrhea, Denies nausea, Denies odynophagia and Denies vomiting Denies difficulty voiding, Denies nocturia, Reports dysuria (mostly some terminal dysuria/burning sensation) and Denies urinary urgency Musc Details: (+) chronic pain over the left foot Reports back pain (increasing), Reports arthralgias (over both knees), Reports neck pain and Reports stiffness Skin/Breast Denies rash Neuro Denies dizziness and Denies headache(s) Psych Denies anxiety and Denies depression Endo Denies fatigue and Denies palpitations Salvador/Lymph Denies easy bruising Aller/Immun Denies itchy eyes and Denies wheezing Physical exam (Primary Care) Vital Signs: Last Vital Signs Pulse 78 03/20/25 14:47 BP 126/80 03/20/25 14:47 Pulse Ox 96 03/20/25 14:47 Oxygen Delivery Method Room Air 03/20/25 14:47 BMI result Body Mass Index 28.6 Tobacco/Smoking Status: Tobacco use Status Tobacco use date assessed 03/20/25 03/20/25 14:52 Patient Tobacco Use Status Former Tobacco user 03/20/25 14:52 e-Cigarette/Vaping Use Never Used 03/20/25 14:52 PHQ-9: PHQ-9 Score PHQ-9: Total score 2 03/20/25 14:52 Depression Screening Interpretation: Negative Thrive Assessment: Date of Thrive Assessment Date Thrive assessed 03/20/25 03/20/25 14:52 Currently or been in a relationship where the following occur: No concerns reported Const General: no acute distress and alert Orientation/consciousness: patient oriented x3 HENMT Head: Yes normocephalic and Yes atraumatic Ears: TM's normal bilaterally and EAC's normal General nose exam: No nasal discharge present Face and sinus: Yes normal facial exam and Yes sinuses nontender Teeth and gingiva: dentition normal Throat: Yes posterior oropharynx normal and Yes tonsils normal (no TP congestion noted) Eyes Eyelids: Yes eyelids normal Conjunctivae: conjunctivae normal Pupils: Equal, round and reactive pupils present EOM: EOMs intact bilaterally Neck Neck: Yes no lymphadenopathy and Yes supple Thyroid: Thyroid normal Resp Auscultation: clear to auscultation bilaterally, no rales and no wheezes Cardio Rate: regular rate Rhythm: regular rhythm Heart sounds: no murmurs GI Palpation (GI): Soft to palpation and nontender Auscultation: normal bowel sounds General: Yes no CVA tenderness Back/Spine/Pelvis Back: no CVA tenderness Cervical Spine: Cervical spine tenderness Thoracic/Lumbar Spine: lumbar spinal tenderness Skin Lesions: no lesions Rashes: no rashes Neuro General: patient oriented x3, moves all extremities, no focal motor deficits and CN's II-XI intact bilaterally Cranial nerves: Yes Equal, round and reactive pupils present Cognition (Neuro): normal cognition Gait exam (Neuro): Normal gait present Extrem General: Yes no clubbing, cyanosis or edema Right lower extremity: knee Details: tenderness; no swelling and foot Details: tenderness Location: of the great toe Left lower extremity: knee Details: tenderness; no swelling and foot Details: tenderness Location: of the calcaneus Results Reviewed Results Reviewed: Laboratory Tests 03/15/25 03/15/25 15:43 Unknown WBC 3.6 L Hgb 13.4 Hct 40.0 Plt Count 285 D Sodium 141 Potassium 3.9 Creatinine 0.85 Estimated GFR > 60 Fasting Glucose 102 H Calcium 9.1 AST 25 ALT 18 Triglycerides 109 Cholesterol 160 LDL Cholesterol, Calc 86 HDL Cholesterol 53 25-OH Vitamin D Total 28.2 L TSH 1.82 Ur Specific [place] 1.025 Urine Protein Trace Urine Glucose (UA) Negative Urine Blood Negative Urine Nitrite Negative Ur Leukocyte Esterase Small (1+) H Coding Level of Care Code Est Pt Prev Care >65y(58363) Diagnoses Annual physical exam Z00.00 Pure hypercholesterolemia E78.00 Benign essential hypertension I10 Impaired fasting glucose R73.01 Exertional dyspnea R06.00 Leukopenia, unspecified type D72.819 Leukopenia type: unspecified Vitamin D deficiency E55.9 Vitamin B12 deficiency E53.8 Degeneration of intervertebral disc of lumbar region with discogenic back pain M51.360 Disc-related pain type: discogenic back pain only Cervical spondylosis M47.812 Primary osteoarthritis of knees, bilateral M17.0 Closed fracture of left foot, sequela S92.902S Encounter type: sequela Fracture type: closed Fibromyalgia M79.7 Gastroesophageal reflux disease without esophagitis K21.9 Esophagitis presence: without esophagitis Serum total bilirubin elevated R17 Dysuria R30.0 Anxiety F41.9 Depression, unspecified depression type F32.9 Depression Type: unspecified Overweight (BMI 25.0-29.9) E66.3 Cervical cancer screening Z12.4 Additional Codes PHQ-9 - 45227 - PHQ-9 Billing: Yes ([id number]) Assessment & Plan Assessment & Plan (1) Annual physical exam: Code(s): Z00.00 - Encounter for general adult medical examination without abnormal findings Category: Medical Plan: Results of her labs done a few days ago reviewed and discussed with patient She is up-to-date with her colon and breast cancer screenings - had her repeat colonoscopy last done back on 03/31/[address] - was advised that she will need repeat colonoscopy in 10 years (2031) Her annual mammogram was last done at [facility] in June 2024 - mammogram was normal She has previously stated that she no longer needs to keep up with her yearly gynecology exam and pap smear at her age but she has reconsidered this and now wants to see gynecology again to have her yearly exam done - states that she has not had her gynecology exam and pap smear done in several years She had a normal BMD done back in 2022 (2) Pure hypercholesterolemia: Code(s): E78.00 - Pure hypercholesterolemia, unspecified Category: Medical Plan: Results of her labs done a few days ago reviewed and discussed with patient Reinforced low cholesterol diet Continue Atorvastatin 10 mg QD Will recheck her labs and fasting lipids in 3 months for follow-up (3) Benign essential hypertension: Code(s): I10 - Essential (primary) hypertension Category: Medical Plan: Reinforced low-sodium diet - goal is systolic BP of at least 130 to 140 mm or less Continue Atenolol 25 mg QD (4) Impaired fasting glucose: Code(s): R73.01 - Impaired fasting glucose Category: Medical Plan: Patient's FBS was still elevated at 102 mg/dl on her recent labs but her HgbA1c was normal at 5.7%, 5.6% and 5.8% when previously checked Reinforced low calorie/low carb diet; exercise as tolerated (5) Exertional dyspnea: Code(s): R06.00 - Dyspnea, unspecified Category: Medical Plan: This has been ongoing for a few years now and is mostly unchanged from previous - is most likely multifactorial, including due to physical decompensation Patient feels that this has been stable lately and her symptoms have not progressed at all over the past few years Lexiscan stress test and myocardial perfusion scan done on 12/11/2018 to check out her symptoms back then came out normal (6) Leukopenia: Code(s): D72.819 - Decreased white blood cell count, unspecified Category: Medical Qualifiers: Leukopenia type: unspecified Qualified Code(s): D72.819 - Decreased white blood cell count, unspecified Plan: This is chronic but has been mild and stable for years Follow-up with hematology/oncology as scheduled Will continue to monitor her CBC regularly (7) Vitamin D deficiency: Code(s): E55.9 - Vitamin D deficiency, unspecified Category: Medical Plan: Continue Vitamin D3 2000 units QD (8) Vitamin B12 deficiency: Code(s): E53.8 - Deficiency of other specified B group vitamins Category: Medical Plan: She continues to receive B12 injections from Dr. Knight every 3 months She is again reminded to take her oral Vitamin B12 supplements just once a week as her Vitamin B12 level remains high on her recent labs at over 1000 Follow up with hematology as scheduled (9) Lumbar degenerative disc disease: Code(s): M51.36 - Other intervertebral disc degeneration, lumbar region Category: Medical Qualifiers: Disc-related pain type: discogenic back pain only Qualified Code(s): M51.360 - Other intervertebral disc degeneration, lumbar region with discogenic back pain only Plan: Reinforced activity and weight lifting restrictions Repeat lumbar spine x-rays done back in February 2022 revealed degenerative disc changes L2-L3 and L3-L4 disc levels with ventral spondylosis. Grade 1 retrolisthesis L3 over L4 and L2 over L3. No acute fractures seen Continue Oxycodone-Acetaminophen 5-325 mg 1 tablet every 8 hours PRN for pain - Rx refilled She has been seeing Dr. Domínguez at [facility] for pain management - to continue following up with pain management there at [facility] as scheduled (10) Cervical spondylosis: Code(s): M47.812 - Spondylosis without myelopathy or radiculopathy, cervical region Category: Medical Plan: States that current medications are helping with her chronic neck pain as well (11) Primary osteoarthritis of knees, bilateral: Code(s): M17.0 - Bilateral primary osteoarthritis of knee Category: Medical Plan: X-rays of both knees done a few years ago revealed (+) OA changes bilaterally Follow up with [facility] as scheduled (12) Foot fracture, left: Code(s): S92.902A - Unspecified fracture of left foot, initial encounter for closed fracture Category: Medical Qualifiers: Encounter type: sequela Fracture type: closed Qualified Code(s): S92.902S - Unspecified fracture of left foot, sequela Plan: X-rays of the left foot done back in November 2023 revealed (+) mildly displaced fracture involving the head/neck junction of the fifth metatarsal Patient recalls that she twisted and strained her foot back then before she asked for x-rays to be ordered - states that her entire left foot was swollen and bruised for a while States that the swelling and bruising have long since subsided but she's had recurrent pain in her foot since and feels that her symptoms have gotten a lot worse lately She has received cortisone injections into her left heel area and left foot previously, with (+) relief of her symptoms Follow up with Dr. Morgan at [facility] as scheduled (13) Fibromyalgia: Code(s): M79.7 - Fibromyalgia Category: Medical Plan: Patient is again encouraged to continue with regular exercise and physical activity to help manage her fibromyalgia symptoms (14) GERD (gastroesophageal reflux disease): Code(s): K21.9 - Gastro-esophageal reflux disease without esophagitis Category: Medical Qualifiers: Esophagitis presence: without esophagitis Qualified Code(s): K21.9 - Gastro-esophageal reflux disease without esophagitis Plan: Dietary restrictions reinforced Continue Omeprazole 20 mg QD (15) Serum total bilirubin elevated: Code(s): R17 - Unspecified jaundice Category: Medical Plan: (?) Gilbert's Syndrome Abdominal US done on 01/12/2017 was normal; serum transaminases remain normal on her recent labs and patient is asymptomatic Will continue to monitor her serum bilirubin level regularly Repeat abdominal US done on 09/07/2024 again came out normal except for hepatic steatosis (16) Dysuria: Comment: mostly terminal dysuria Code(s): R30.0 - Dysuria Category: Medical Plan: Reinforced increased oral fluid intake She is advised that her recent urinalysis did not really show any significant or pertinent findings and that her urine C/S came back with (+) mixed leisa Will start patient empirically on Macrobid 100 mg BID x 7 days (17) Anxiety: Code(s): F41.9 - Anxiety disorder, unspecified Category: Medical Plan: Continue Lorazepam 0.5 mg 2 to 3 times a day as needed (18) Depression: Code(s): F32.9 - Major depressive disorder, single episode, unspecified Category: Medical Qualifiers: Depression Type: unspecified Qualified Code(s): F32.9 - Major depressive disorder, single episode, unspecified Plan: Continue Paroxetine 20 mg QD and Amitriptyline 50 mg Q HS Follow up with psychiatry as scheduled (19) Overweight (BMI 25.0-29.9): Code(s): E66.3 - Overweight Category: Medical Plan: Reinforced diet; exercise and weight loss are not realistic expectations at present due to her multiple physical issues and increasing left foot pain (20) Cervical cancer screening: Code(s): Z12.4 - Encounter for screening for malignant neoplasm of cervix Category: Medical Plan: Per request, will refer her again to gynecology for her yearly pap smear and gynecology exam Plan Follow up in 3 months Orders: Orders Complete Blood Count Auto Diff 3 Months D64.9 - Anemia, unspecified TSH reflex Free T4 3 Months E78.00 - Pure hypercholesterolemia, unspecified Vitamin B12 and Folate 3 Months E53.8 - Deficiency of other specified B group vitamins Comprehensive [place]. Panel Fast 3 Months E78.00 - Pure hypercholesterolemia, unspecified Lipid Panel 3 Months E78.00 - Pure hypercholesterolemia, unspecified UA CC w/rflx Micro + Cult 3 Months R30.0 - Dysuria Vitamin D 25-OH Total 3 Months E55.9 - Vitamin D deficiency, unspecified Referrals [facility] Referral Z12.4 - Encounter for screening for malignant neoplasm of cervix Medications: New nitrofurantoin monohyd/m-cryst 100 mg (Macrobid) must administer with a meal/food 100 mg PO Q12H 14 caps 0RF 7 days Refilled oxycodone-acetaminophen 7.5-325 mg 1 tab PO Q8H PRN 90 tabs 0RF pain 30 days
--- OUTSIDE RECORDS SUMMARY | 2025-03-20 15:03 | XMS_ITS | Clinical Summary ---
Author Organization [facility] ity Address [address] [place] [address] Care Team Providers Care Pocket Marker Name Role Phone Tarik Zimmerman MD Primary Care Provider [phone] Social History Tobacco Use Types Packs/Day Years Used Date Smoking Tobacco: Never Assessed Comments Unknown Sex and Gender Information Value Date Recorded Sex Assigned at Not on file Legal Sex Female 11:24 PM EST Gender Identity Not on file Sexual Orientation Not on file Obstetrics History Plan of Treatment Health Maintenance Due Date Last Done Comments DTaP,Tdap,and Td Vaccines (1 - Tdap) 1973 Pneumococcal Vaccine: 50+ Years (1 of 1 - PCV) 2004 Zoster Vaccines (1 of 2) 2004 Colorectal Cancer Screening: Colonoscopy 08/22/2022 Depression Screening 08/22/2022 Falls Risk Assessment 08/22/2022 Hepatitis C Screening 08/22/2022 Osteoporosis Screening (Bone Density Screening) 08/22/2022 Social Influencers of Health Screening 08/22/2022 COVID-19 Vaccine ( season) 2024 Influenza Vaccine (Season Ended) 2025 Breast Cancer Screening 06/27/2026 06/27/20 24, 06/06/2023, 06/01/2022, Additional history exists RSV Immunization Adult Patients (1 - 1-dose 75+ series) 2029 HIB [...] patient's age to complete this topic Meningococcal B Vaccine Aged Out No l onger eligible based on patient's age to complete this topic RSV Immunization Patients Under 20 months Aged Out No longer eligible based on patient's age to complete this topic Varicella Vaccines Aged Out No longer eligible based on patient's age to complete this topic Procedures Procedure Name Priority Date/Time Associated Diagnosis Comments [facility] SCREENING DIGITAL Routine 06/27/2024 10:27 AM EDT Encounter for screening mammogram for malignant neoplasm of breast from Last 3 Months or Most Recently Relevant to Health Maintenance Results * [facility] SCREENING DIGITAL (06/27/2024 10:27 AM EDT) Anatomical Region Laterality Modality Mammography 06/27/2024 8:03 AM EDT Narrative 06/27/2024 10:27 AM EDT [facility] Diagnostic Imaging Department [address] [place] [address] Patient: WASHINGTONTONIA M /Age/Sex: 1955 - F Unit#: [id number] Location/Status: SPDIMAM/REG CLI Mnemonic/Ordering Site: [facility] Ordering Physician: TARIK ZIMMERMAN MD [facility] Screening Digital - 06/27/24911 Report Status:Signed EXAM: [facility] Screening Digital EXAM DATE AND TIME: 06/27/2024 8:31 AM HISTORY: Screening. Excisional biopsy of the left breast in 1997, pathology benign. Sister had breast carcinoma at age 40. COMPARISON: 06/06/23, 06/01/22, 05/28/21 TECHNIQUE: Bilateral digital breast tomosynthesis was performed in the CC and MLO projections. Computer aided detection with [employer] 3D 3.1 was employed. TISSUE DENSITY: b. [...] appearance of the breasts. No evidence of malignancy is seen. A negative mammogram in the presence of a clinically suspicious palpable abnormality does not preclude the possibility of malignancy or alter the indications for biopsy. BI-RADS: Category 2: Benign RECOMMENDATION(S): 1: Routine screening mammogram BILATERAL in 1 year. [facility] performed at [facility] [address] [place] [address] Dictating Physician: HARLEEN DE LA CRUZ MD Electronically Signed by: HARLEEN DE LA CRUZ MD Dic Date/Time: 06/27/24 1025 Sign date/Time: 06/27/24 1027 Procedure Note Harleen De La Curz MD - 07/17/2024 [facility] Diagnostic Imaging Department [address] [place] [address] Patient: TONIA FRAGA./Age/Sex: 1955 - 68 - F Unit#: [id number] Location/Status: SPDIMAM/REG CLI Mnemonic/Ordering Site: [facility] Ordering Physician: TARIK ZIMMERMAN MD [facility] Screening Digital - 06/27/24 - 911 Report Status:Signed EXAM: [facility] Screening Digital EXAM DATE AND TIME: 06/27/2024 8:31 AM HISTORY: Screening. Excisional biopsy of the left breast in 1997,pathology benign. Sister had breast carcinoma at age 40. COMPARISON: 06/06/23, 06/01/22, 05/28/21 TECHNIQUE: Bilateral digital breast tomosynthesis was performed in the CCand MLO projections. Computer aided detection with Ge[employer]ellar 3D 3.1was employed. TISSUE DENSITY: b. There [...] Mammogram performed at [facility] [place] [address] Dictating Physician: HARLEEN DE LA CRUZ MD Electronically Signed by: HARLEEN DE LA CRUZ MD Dic Date/Time: 06/27/24 1025 Sign date/Time: 06/27/24 1027 us Tarik Zimmerman MD IMG BI PROCEDURES Final Resu lt from Last 3 Months or Most Recently Relevant to Health Maintenance Care Teams Pocket Marker Relationship Specialty Start Date End Date Tarik Zimmerman MD [address] [place] [address] [address] DANIELLE Mendenhall PCP - General Internal Medicine 03/31/17
--- OUTSIDE RECORDS SUMMARY | 2025-03-20 15:03 | XMS_ITS | Patient Health Record ---
Author Organization [facility] Address [address] [place] [address] Care Team Providers Care Dairy Associate Name Role Phone Oscar Salguero MDneth Primary Care Provider Blair Mckeon Jr Unavailable [phone] Allergies Allergen (clinical drug ingredient) Drug/Non Drug Allergy documented on EMR Reaction Allergy Type Onset Date Status levoFLOXacin Unknown Drug Allergy Acti ve Reason For Referral No Information Medications Medication [...] Active Lorazepam Not-Taking Vitamin D3 250 MCG (13720 UT) as directed Orally Once a day [...] Problem Status W/U Status Risk Notes Problem [id number] Colon cancer screening (Z12.11) Active confirmed Problem [id number] assisted (current) use of non-steroidal anti-inflammato reagan (NSAID) (Z79.1) Active confirmed Plan Of Treatment Future Test Test Name Order Date COLONOSCOPY 03/15/2022 Insurance Providers Payer Name Payer Address Payer Phone Subscriber Number Group Number Insured Name Patient Relationship to Insured Coverage Start Date Coverage End Date AARP Medicare Advantage Plan [address] [address] [place] [address] [id number] JOSELYN DELAROSA Self - patient is the insured Medical (General) History Medical History History ICD Code Hypertension Elevated cholesterol Elevated blood sugar Osteoarthritis Anxiety/depression Vitamin D deficiency Leukopenia Surgical History Surgery Date(Month/Year) appendectomy 2013 breast biopsy 1992
== END 2025-03-20 15:33 | disposition home or self-care (01) ==
LOC: HO.HMCH 14:36
PROVIDERS: PCP Internal Medicine; Visit Provider Internal Medicine
DX: Z00.00 Encounter for general adult medical examination without abnormal findings (principal); E78.00 Pure hypercholesterolemia, unspecified; I10 Essential (primary) hypertension; R73.01 Impaired fasting glucose; R06.00 Dyspnea, unspecified; D72.819 Decreased white blood cell count, unspecified; E55.9 Vitamin D deficiency, unspecified; E53.8 Deficiency of other specified B group vitamins; M51.360 Other intervertebral disc degeneration, lumbar region with discogenic back pain only; M47.812 Spondylosis without myelopathy or radiculopathy, cervical region; M17.0 Bilateral primary osteoarthritis of knee; S92.902S Unspecified fracture of left foot, sequela; M79.7 Fibromyalgia; K21.9 Gastro-esophageal reflux disease without esophagitis; R17 Unspecified jaundice; R30.0 Dysuria; F41.9 Anxiety disorder, unspecified; F32.9 Major depressive disorder, single episode, unspecified; E66.3 Overweight; Z12.4 Encounter for screening for malignant neoplasm of cervix

== ENCOUNTER → 2025-03-20 14:35 | Outpatient (BNVA) | payer MEDICARE, SELFPAY | PROVIDERS: PCP Internal Medicine; Visit Provider Internal Medicine | DX: Z00.00 Encounter for general adult medical examination without abnormal findings (principal); E78.00 Pure hypercholesterolemia, unspecified; R73.01 Impaired fasting glucose; R00.0 Tachycardia, unspecified; I10 Essential (primary) hypertension; D72.819 Decreased white blood cell count, unspecified; E55.9 Vitamin D deficiency, unspecified; E53.8 Deficiency of other specified B group vitamins; M51.360 Other intervertebral disc degeneration, lumbar region with discogenic back pain only; M47.812 Spondylosis without myelopathy or radiculopathy, cervical region; M17.0 Bilateral primary osteoarthritis of knee; S92.902S Unspecified fracture of left foot, sequela; M79.7 Fibromyalgia; K21.9 Gastro-esophageal reflux disease without esophagitis; R17 Unspecified jaundice; R30.0 Dysuria; F41.9 Anxiety disorder, unspecified; F32.9 Major depressive disorder, single episode, unspecified; E66.3 Overweight; Z68.28 Body mass index [BMI] 28.0-28.9, adult; Z71.3 Dietary counseling and surveillance | CPT/HCPCS: 96127; 99397 ==

== ENCOUNTER 2025-04-22 10:29 | Outpatient (AMB) | payer OTHER, SELFPAY ==
[2025-04-22 10:30] VITALS: BMI 28.6
--- NOTE | 2025-04-22 10:30 | MHC.OFFVIS ---
Vital Signs 04/22/25 10:30 Height 5 ft 6 in Weight 177 lb BMI 28.6 Intake Visit Reasons: OV-B/L Knee OA - Last injected 01/15/25 Intake Note: Tonia is a 68 year old female who presents today for a follow up of her bilateral knee OA. Both of her knees were injected on 01/16/24. Patient reports that these injectons were very helpful and she would like to repeat bilaterally today. Allergies levofloxacin (From LEVAQUIN) Adverse Reaction (Mild, Verified 03/20/25 15:14) TENDONITIS, JOINT PAIN HPI HPI OV-B/L Knee OA - Last injected 01/15/25: Details: Tonia has bilateral knee osteoarthritis. She received injections in December of last year and these have been helpful until recently. She would like to repeat injections today. [facility] Medical History Serum total bilirubin elevated Overweight (BMI 25.0-29.9) Depression Anxiety Osteoarthritis of knees, bilateral Cervical spondylosis Lumbar degenerative disc disease Fibromyalgia Vitamin D deficiency Leukopenia Exertional dyspnea Impaired fasting glucose Benign essential hypertension Pure hypercholesterolemia Surgical History S/P colonoscopy (~03/31/22) H/O left breast biopsy History of appendectomy Family History Father Past heart attack CVD (cardiovascular disease) Mother Hypertension Lung cancer Sister Breast cancer Brother Diabetes Maternal Aunt Diabetes Paternal Aunt Ovarian cancer Social History Household Members: Family Housing: House Are you a primary assisted living care manager to a significant other at home: No Do you presently have visiting nurse or other home services: No Alcohol intake: current Alcohol intake frequency: holidays/special occasions only Patient Tobacco Use Status: Former Tobacco user e-Cigarette/Vaping Use: Never Used Second Hand Smoke Exposure: Yes service: No Current occupational status: retired 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 Site was prepped using aseptic technique. Patient tolerated the procedure well. Shoulders, Hips, Knees, Knee Large Joint Injection : Bilateral Knee Coding Procedure code (CPT) selection complete Results Reviewed Results Reviewed: I personally reviewed relevant radiographs. Moderate PF OA bilaterally , left > right Assessment & Plan Assessment & Plan (1) Primary osteoarthritis of knees, bilateral: Code(s): M17.0 - Bilateral primary osteoarthritis of knee Category: Medical Plan: Injected bilateral knees today. Follow up as needed. Coding Level of Care Code Est Pt Level 3 (60358) Diagnoses Primary osteoarthritis of knees, bilateral M17.0 CPT Codes Shoulders, Hips, Knees, - Knee Large Joint Injection : Bilateral Knee ([id number])
--- OUTSIDE RECORDS SUMMARY | 2025-04-22 11:12 | XMS_ITS | Patient Health Record ---
Author Organization [facility] Address [address] [place] [address] Care Team Providers Care Organizational Effectiveness Consultant Name Role Phone Oscar Salguero MDneth Primary Care Provider Blair Mckeon Jr Unavailable Allergies Allergen (clinical drug ingredient) Drug/Non Drug [...] Active Lorazepam Not-Taking Vitamin D3 250 MCG (43867 UT) as directed Orally Once a day [...] Problem Status W/U Status Risk Notes Problem [id number] Colon cancer screening (Z12.11) Active confirmed Problem 431330012 assisted (current) use of non-steroidal anti-inflammato reagan (NSAID) (Z79.1) Active confirmed Plan Of Treatment Future Test Test Name Order Date COLONOSCOPY 03/15/2022 Insurance Providers Payer Name Payer Address Payer Phone Subscriber Number Group Number Insured Name Patient Relationship to Insured Coverage Start Date Coverage End Date AARP Medicare Advantage Plan [address] [address] [place] [address] [id number] [place] JOSELYN Self - patient is the insured Medical (General) History Medical History History ICD Code Hypertension Elevated cholesterol Elevated blood sugar Osteoarthritis Anxiety/depression Vitamin D deficiency Leukopenia Surgical History Surgery Date(Month/Year) appendectomy 2013 breast biopsy 1992
--- OUTSIDE RECORDS SUMMARY | 2025-04-22 11:12 | XMS_ITS | Clinical Summary ---
Author Organization [facility] ity Address [address] [place] [address] Care Team Providers Care Auxiliary Operator Name Role Phone Tarik Zimmerman MD Primary [...] 2) 2004 Colorectal Cancer Screening: Colonoscopy 08/22/2022 Falls Risk Assessment 08/22/2022 Hepatitis C Screening 08/22/2022 Osteoporosis Screening (Bone Density Screening) 08/22/2022 Social Influencers of Health Screening 08/22/2022 COVID-19 Vaccine ( season) 2024 Depression Screening 09/19/2024 Influenza Vaccine (#1) 2025 Breast Cancer Screening 06/27/2026 06/27/20 24, [...] Procedure Name Priority Date/Time Associated Diagnosis Comments [facility] SCREENING DIGITAL Routine 06/27/2024 10:27 AM EDT Encounter for screening mammogram for malignant neoplasm of breast from Last 3 Months or Most Recently Relevant to Health Maintenance Results * [facility] SCREENING DIGITAL (06/27/2024 10:27 AM EDT) Anatomical Region Laterality Modality Mammography 06/27/2024 8:03 AM EDT Narrative 06/27/2024 10:27 AM EDT [facility] Diagnostic Imaging Department [address] [place] [address] Patient: WASHINGTONTONIA M /Age/Sex: 1955 - F Unit#: [id number] Location/Status: SPDIMAM/REG CLI Mnemonic/Ordering Site: [facility] Ordering Physician: TARIK ZIMMERMAN MD [facility] Screening Digital - 06/27/24911 Report Status:Signed EXAM: [facility] Screening Digital EXAM DATE AND TIME: 06/27/2024 8:31 AM HISTORY: Screening. Excisional biopsy of the left breast in 1997, pathology benign. Sister had breast carcinoma at age 40. COMPARISON: 06/06/23, 06/01/22, 05/28/21 TECHNIQUE: Bilateral digital breast tomosynthesis was performed in the CC and MLO projections. Computer aided detection with [employer] 3D 3.1 was employed. TISSUE DENSITY: b. [...] Mammogram performed at [facility] [address] [place] [address] Dictating Physician: HARLEEN DE LA CRUZ MD Electronically Signed by: HARLEEN DE LA CRUZ MD Dic Date/Time: 06/27/24 1025 Sign date/Time: 06/27/24 1027 Procedure Note Harleen De La Cruz MD - 07/17/2024 [facility] Diagnostic Imaging Department [address] [place] [address] Patient: TONIA FRAGA./Age/Sex: 1955 - 68 - F Unit#: [id number] Location/Status: SPDIMAM/REG CLI Mnemonic/[facility] Ordering Physician: TARIK ZIMMERMAN MD [facility] Screening Digital - 06/27/24 - 911 Report Status:Signed EXAM: [facility] Screening Digital EXAM DATE AND TIME: 06/27/2024 8:31 AM HISTORY: Screening. Excisional biopsy of the left breast in 1997,pathology benign. Sister had breast carcinoma at age 40. COMPARISON: 06/06/23, 06/01/22, 05/28/21 TECHNIQUE: Bilateral digital breast tomosynthesis was performed in the CCand MLO projections. Computer aided detection with [employer] 3D 3.1was employed. TISSUE DENSITY: b. There [...] Mammogram performed at [place] [address] Dictating Physician: HARLEEN DE LA CRUZ MD Electronically Signed by: HARLEEN DE LA CRUZ MD Dic Date/Time: 06/27/24 1025 Sign date/Time: 06/27/24 1027 us Tarik Zimmerman MD IMG BI PROCEDURES Final Resu lt from Last 3 Months or Most Recently Relevant to Health Maintenance Care Teams Auxiliary Operator Relationship Specialty Start Date End Date Tairk Zimmerman MD [address] [place] [address] [address] DANIELLE Mendenhall PCP - General Internal Medicine 03/31/17
--- OUTSIDE RECORDS SUMMARY | 2025-04-22 11:12 | XMS_ITS | Clinical Summary ---
Author Organization [facility] Address [address] [place] [id number] Phone Care Team Providers Care Biological Lab Technician Name Role Phone Tarik Salguero MD Primary Care Provider [phone] Social History Tobacco Use Types Packs/Day Years Used Date Smoking Tobacco: Never Assessed Education Answer Date Recorded Are you interested in more education? Not on ramesh e 01/14/2023 Are you concerned about learning? Not on file 01/14/2023 No 01/14/2023 No 01/14/2023 Digital Access Answer Date Recorded No 02/12/2023 No 02/12/2023 No 02/12/2023 Reliable internet access at home? Not on file 02/12/2023 Device with a working camera? Not on file Comments Unknown Sex and Gender Information Value Date Recorded Sex Assigned at Not on file Legal Sex Female 9:56 PM EDT Gender Identity Not on file Sexual Orientation Not on file Plan of Treatment Health Maintenance Due Date Last Done Comments LIPID PANEL 1955 DEPRESSION SCREENING 1966 SMOKING Hx and SMOKELESS TOBACCO SCREENING 1967 HEPATITIS C SCREENING 1972 MAMMOGRAM 1994 COLOGUARD 1999 COLONOSCOPY 1999 COLORECTAL CANCER SCREENING 1999 FIT TEST 1999 FOBT 1999 SIGMOIDOSCOPY 1999 VIRTUAL COLONOSCOPY 1999 ZOSTER VACCINES (1 of 2) 2004 OSTEOPOROSIS SCREENING INITI AL (ONE-TIME) 2019 PNEUMOCOCCAL VACCINES (50+ years) (2 of 2 - PCV) 11/21/2020 11/22/2019 COVID-19 VACCINE (2 - 2023-2 5 season) 2024 11/25/2020 Adult Td,Tdap Booster 08/14/2028 08/14/2018 , 07/03/2008 RSV VACCINE (1 - 1-dose 75+ series) 2029 HEPATITIS A VACCINES Aged Out No long er eligible based on patient's age to complete this topic HIB VACCINES Aged Out No longer eligi ble based on patient's age to complete this topic MENINGOCOCCAL VACCINES (ACWY) Aged Out No longer eligible based on patient's age to complete this topic MENINGOCOCCAL VACCINES (B) Aged Out N o longer eligible based on patient's age to complete this topic Medical Devices Not on file Insurance MEDICARE REPLACEMENT MEDICARE REPLACEMENT MEDICARE REPLACEMENT MEDICARE REPLACEMENT MEDICARE REPLACEMENT MEDICARE REPLACEMENT MEDICARE REPLACEMENT MEDICARE REPLACEMENT MEDICARE REPLACEMENT Care Teams Biological Lab Technician Relationship Specialty Start Date End Date Tarik Salguero MD [address] [place] [address] [place] [address] PCP - General Internal Medicine 07/12/17 Additional Source Comments The information contained in this document represents components of the legal health record. It is not the complete legal health record.[facility]
== END 2025-04-22 11:02 | disposition home or self-care (01) ==
LOC: HO.HOS 10:29
PROVIDERS: PCP Internal Medicine; Visit Provider Orthopaedic Surgery
DX: M17.0 Bilateral primary osteoarthritis of knee (principal)
CPT/HCPCS: 20610; 99213

== ENCOUNTER → 2025-04-22 10:29 | Outpatient (BNVA) | payer MEDICARE, SELFPAY | PROVIDERS: PCP Internal Medicine; Visit Provider Orthopaedic Surgery | DX: M17.0 Bilateral primary osteoarthritis of knee (principal); M25.562 Pain in left knee; M25.561 Pain in right knee | CPT/HCPCS: 20610; J0665; J1100; J2003 ==

== ENCOUNTER 2025-06-20 15:55 | Outpatient (REF) | payer MEDICARE, SELFPAY ==
[2025-06-20 16:17] LABS: MANUAL DIFF FLAG NO
--- OUTSIDE RECORDS SUMMARY | 2025-06-20 16:54 | XMS_ITS | Patient Health Record ---
Author Organization [facility] Address [address] [place] [address] Care Team Providers Care Barrel Turner Name Role Phone Oscar Salguero MDneth Primary [...] Active Lorazepam Not-Taking Vitamin D3 250 MCG (69058 UT) as directed Orally Once a day [...] Problem Status W/U Status Risk Notes Problem [id number] Colon cancer screening (Z12.11) Active confirmed Problem [id number] MCC (current) use of non-steroidal anti-inflammato reagan (NSAID) (Z79.1) Active confirmed Plan Of Treatment Future Test Test Name Order Date COLONOSCOPY 03/15/2022 Insurance Providers Payer Name Payer Address Payer Phone Subscriber Number Group Number Insured Name Patient Relationship to Insured Coverage Start Date Coverage End Date AARP Medicare Advantage Plan [address] [address] [place] [address] [id number] [place] JOSELYN Self - patient is the insured Medical (General) History Medical History History ICD Code Hypertension Elevated cholesterol Elevated blood sugar Osteoarthritis Anxiety/depression Vitamin D deficiency Leukopenia Surgical History Surgery Date(Month/Year) appendectomy 2013 breast biopsy 1992
--- OUTSIDE RECORDS SUMMARY | 2025-06-20 16:54 | XMS_ITS | Clinical Summary ---
Author Organization [facility] it[facility] Address [address] [place] [address] Care Team Providers Care Credit Manager Name Role Phone Tarik Zimmerman MD Primary [...] Health Maintenance Due Date Last Done Comments Colorectal Cancer Screening: Colonoscopy 1955 DTaP,Tdap,and Td Vaccines (1 - Tdap) 1973 Pneumococcal Vaccine: 50+ Years (1 of 1 - PCV) 2004 Zoster Vaccines (1 of 2) 2004 Falls Risk Assessment 08/22/2022 Hepatitis C Screening 08/22/2022 Osteoporosis Screening (Bone Density Screening) 08/22/2022 Social Influencers of Health Screening 08/22/2022 Depression Screening 09/19/2024 COVID-19 Vaccine ( season) 2025 Influenza Vaccine (#1) 2025 Breast Cancer Screening [...] Procedure Name Priority Date/Time Associated Diagnosis Comments [facility] SCREENING DIGITAL Routine 06/27/2024 10:27 AM EDT Encounter for screening mammogram for malignant neoplasm of breast from Last 3 Months or Most Recently Relevant to Health Maintenance Results * [facility] SCREENING DIGITAL (06/27/2024 10:27 AM EDT) Anatomical Region Laterality Modality Mammography 06/27/2024 8:03 AM EDT Narrative 06/27/2024 10:27 AM EDT [facility] Diagnostic Imaging Department [address] [place] [address] Patient: WASHINGTONTONIA M /Age/Sex: 1955 - F Unit#: [id number] Location/Status: SPDIMAM/REG CLI Mnemonic/Ordering Site: [facility] Ordering Physician: TARIK ZIMMERMAN MD [facility] Screening Digital - 06/27/[address] Report Status:Signed EXAM: [facility] Screening Digital EXAM DATE AND TIME: 06/27/2024 8:31 AM HISTORY: Screening. Excisional biopsy of the left breast in 1997, pathology benign. Sister had breast carcinoma at age 40. COMPARISON: 06/06/23, 06/01/22, 05/28/21 TECHNIQUE: Bilateral digital breast tomosynthesis was performed in the CC and MLO projections. Computer aided detection with [employer] 3D 3.1 was employed. TISSUE DENSITY: b. [...] Mammogram performed at [facility] [address] [place] [address] Dictating Physician: HARLEEN DE LA CRUZ MD Electronically Signed by: HARLEEN DE LA CRUZ MD Dic Date/Time: 06/27/24 1025 Sign date/Time: 06/27/24 1027 Procedure Note Harleen De La Cruz MD - 07/17/2024 [facility] Diagnostic Imaging Department [address] [place] [address] Patient: TONIA FRAGA./Age/Sex: 1955 - 68 - F Unit#: [id number] Location/Status: SPDIMAM/REG CLI Mnemonic/Ordering Site: [facility] Ordering Physician: TARIK ZIMMERMAN MD [facility] Screening Digital - 06/27/24 - 911 Report Status:Signed EXAM: [facility] Screening Digital EXAM DATE AND TIME: 06/27/2024 8:31 AM HISTORY: Screening. Excisional biopsy of the left breast in 1997,pathology benign. Sister had breast carcinoma at age 40. COMPARISON: 06/06/23, 06/01/22, 05/28/21 TECHNIQUE: Bilateral digital breast tomosynthesis was performed in the CCand MLO projections. Computer aided detection with [employer] 3D 3.1was employed. TISSUE DENSITY: b. There [...] Mammogram performed [place] [facility] [place] [address] Dictating Physician: HARLEEN DE LA CRUZ MD Electronically Signed by: HARLEEN DE LA CURZ MD Dic Date/Time: 06/27/24 1025 Sign date/Time: 06/27/24 1027 us Tarik Zimmerman MD IMG BI PROCEDURES Final Resu lt from Last 3 Months or Most Recently Relevant to Health Maintenance Care Teams Credit Manager Relationship Specialty Start Date End Date Tarik Zimmerman MD [address] [place] [address] [address] DANIELLE Mendenhall PCP - General Internal Medicine 03/31/17
--- OUTSIDE RECORDS SUMMARY | 2025-06-20 16:54 | XMS_ITS | Clinical Summary ---
Author Organization [facility] Address [address] [place] [address] Phone Care Team Providers Care Anthropology Department Chair Name Role Phone Tarik Salguero MD Primary Care Provider [phone] Social History Tobacco Use Types Packs/Day Years [...] VACCINES (1 of 2) 2004 OSTEOPOROSIS SCREENING INITIAL (ONE-TIME) 2019 PNEUMOCOCCAL VACCINES (50+ years) (2 of 2 - PCV) 11/21/2020 11/22/2019 INFLUENZA VACCINE (#1) 2025 9, 07/21/2018, 07/06/2017, Additional history exists COVID-19 VACCINE ( season) 2025 11/25/2020 Adult Td,Tdap Booster 08/14/2028 08/14/2018, 008 RSV VACCINE (1 - 1-dose 75+ series) [...] REPLACEMENT MEDICARE REPLACEMENT MEDICARE REPLACEMENT Care Teams Anthropology Department Chair Relationship Specialty Start Date End Date Tarik Salguero MD [address] [place] [address] [place] [address] PCP - General Internal Medicine 07/12/17 Additional Source Comments The information contained in this document represents components of the legal health record. It is not the complete legal health record.[facility]
[2025-06-20 17:31] LABS: Hematocrit 38.6 % (37.0-47.0); Hemoglobin 13.0 g/dl (12.0-16.0); Imm Gran Abs Auto 0.01 X10*3/uL (0.00-0.03); Imm Gran Pct Auto 0.3 % (0.0-0.4); Lymphocytes Absolute Auto 1.6 X10*3/uL (1.2-4.9); Mean Corpuscular HGB Conc 33.7 g/dl (31.0-35.0); Mean Corpuscular Hemoglobin 32.6 pg (27.0-33.0); Mean Corpuscular Volume 96.7 fL (80.0-98.0); NRBC Abs Auto 0.000 X10*3/uL (0.0-0.012); NRBC Pct Auto 0.0 /100WBC (0.0-0.2); Platelet Count 275 X10*3/uL (160-400); Red Blood Count 3.99 X10*6/uL (4.20-5.50); White Blood Count 3.4 X10*3/uL (4.8-10.8)
[2025-06-20 17:50] LABS: Appearance Urine Cloudy; Glucose Urine UA Negative (Negative); PH 5.5 (5.0-9.0); Specific Gravity - Urine >= 1.030 (1.005-1.025); UMIC TRIGGER UACC YES
[2025-06-20 18:05] LABS: UACC Culture Trigger YES
[2025-06-20 18:13] LABS: Alanine Aminotransferase 17 U/L (0-31); Albumin Level 4.6 g/dL (3.5-5.0); Alkaline Phosphatase 78 U/L (39-117); Anion Gap 11 (12-20); Aspartate Amino Transferase 24 U/L (5-31); Blood Urea Nitrogen 19 mg/dL (9-16); Calcium 9.3 mg/dL (8.4-10.2); Carbon Dioxide 31 mmol/L (22-29); Chloride 105 mmol/L (96-108); Cholesterol 165 mg/dL (<200); Estimated Glomerular Filt Rate 57; HDL Cholesterol 44 mg/dL (>40); Potassium 4.6 mmol/L (3.3-5.1); Sodium 142 mmol/L (135-145); Total Protein 7.4 g/dL (6.5-8.0); Triglycerides 141 mg/dL (<150)
[2025-06-20 18:42] LABS: Folate 15.3 ng/mL (> or = 4.0); Vitamin B12 993 pg/mL (200-900)
== END 2025-06-20 15:56 | disposition home or self-care (01) ==
LOC: HO.LAB 15:55
PROVIDERS: PCP Internal Medicine; Visit Provider Internal Medicine
DX: E53.8 Deficiency of other specified B group vitamins (principal); E78.00 Pure hypercholesterolemia, unspecified; E55.9 Vitamin D deficiency, unspecified; D64.9 Anemia, unspecified
CPT/HCPCS: 36415; 80053; 80061; 81001; 82306; 82607; 82746; 84443; 85025; 87086

== ENCOUNTER 2025-06-24 13:06 | Outpatient (AMB) | payer MEDICARE, SELFPAY ==
--- NOTE | 2025-06-24 13:10 | MHC.PC.OV ---
Vital Signs 06/24/25 13:12 Height 5 ft 6 in Weight 181 lb 2 oz BMI 29.2 BP 116/74 Blood Pressure Location Lt brachial Position Sitting Pulse 90 Pulse Source Pulse Oximeter Pulse Oximetry (%) 94 Oxygen Delivery Method Room Air Intake Visit Reasons: 3 month Director [employer]ing Required: No Accompanied by: Self / Same As Patient Allergies levofloxacin (From LEVAQUIN) Adverse Reaction (Mild, Verified 06/24/25 13:50) TENDONITIS, JOINT PAIN Medication List - Last Reconciled 06/24/25 by Tarik Salguero MD amitriptyline 50 mg PO BEDTIME 90 days ascorbic acid (vitamin C) 100 mg PO DAILY atenolol 50 mg PO DAILY atorvastatin 10 mg PO DAILY cholecalciferol (vitamin D3) (Vitamin D3) 25 mcg PO DAILY cyanocobalamin (vitamin B-12) 1,000 mcg PO DAILY diclofenac sodium 75 mg PO BID PRN folic acid 1 tab PO DAILY loratadine (Claritin) 10 mg PO DAILY magnesium 250 mg PO DAILY omeprazole 20 mg PO DAILY 90 days oxycodone-acetaminophen 7.5-325 mg 1 tab PO Q8H PRN 30 days paroxetine HCl 20 mg PO QAM Tobacco use date assessed: 06/24/25 Fall risk assessment: No Falls in past year Last assessed Fall Risk: 06/24/25 Dental Screening Dental Screen Date: 06/24/25 Did you have a dental visit in the last 12 months?: Yes Did you have a dental problem in the last 6 months where you did not have access to dental care?: No Was dental information given to patient?: Patient has dentist HPI 3 month HPI Details Patient comes in today for her follow up visit States that she feels okay She denies any headaches or dizziness Denies any chest pains, no SOB No nausea/vomiting but relates that she has been experiencing recurrent heartburns and acid reflux for the past few months now She has also been experiencing some epigastric pain and discomfort at times lately as a result Adds that she has had a couple of episodes wherein she would choke when eating - states that she has to be careful now and eat slowly or she will end up choking on her food No change in bowel habits noted States that her chronic low back pain, neck pain and joint pains remain adequately controlled on her current Rx Needs her pain medication Rx refilled today She had her follow up labs done a few days ago - to discuss her results She is also requesting for a mammogram order (she is due) and she would like to have [facility] Is also requesting for a referral to see Dr. Oumar Morgan for podiatry follow up for her left foot and ankle pain - she has seen Dr. Morgan in the past but her last visit was over 2 years ago [facility] Medical History GERD (gastroesophageal reflux disease) Serum total bilirubin elevated Overweight (BMI 25.0-29.9) Depression Anxiety Osteoarthritis of knees, bilateral Cervical spondylosis Lumbar degenerative disc disease Fibromyalgia Vitamin D deficiency Leukopenia Exertional dyspnea Impaired fasting glucose Benign essential hypertension Pure hypercholesterolemia Surgical History S/P colonoscopy (~03/31/22) H/O left breast biopsy History of appendectomy Family History Father Past heart attack CVD (cardiovascular disease) Mother Hypertension Lung cancer Sister Breast cancer Brother Diabetes Maternal Aunt Diabetes Paternal Aunt Ovarian cancer Social History Household Members: Family Housing: House Are you a primary lead caregiver to a significant other at home: No Do you presently have visiting nurse or other home services: No Alcohol intake: current Alcohol intake frequency: holidays/special occasions only Patient Tobacco Use Status: Former Tobacco user e-Cigarette/Vaping Use: Never Used Second Hand Smoke Exposure: Yes service: No Current occupational status: retired 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 Depression Screening Interpretation: Negative Depression Screening Done: Yes Source: Developed by Drs. Avery Hathaway, Shaniqua Ca, Nacho Contreras and colleagues, with an educational dayan from [employer]. Thrive Questionnaire Date Thrive assessed: 03/15/25 I am a: Patient What is your living situation today?: I have a steady place to live Within the past 12 months, did the food you bought not last and you didn't have the money to get more?: Never true Within the past 12 months, did you worry whether your food would run out before you got money to buy more?: Never true Do you have trouble paying for medicines?: No Do you have trouble getting transportation to medical appointments?: No Do you have trouble paying your heating and electricity bill?: No Do you have trouble taking care of your child, family member or friend?: No Do you have trouble with day-to-day activities such as bathing, preparing meals, shopping, managing finances, etc.?: No Are you currently unemployed and looking for a job?: No Are you interested in more education?: No Please select the resources that you would like help with: None Currently or been in a relationship where the following occur: No concerns reported THRIVE Score: 0 AUDIT C Alcohol Use Questionnaire (AUDIT-C) 1. How often do you have a drink containing alcohol?: 2-4 times a month 2. How many drinks containing alcohol do you have on a typical day when you are drinking?: 1 or 2 3. How often do you have six or more drinks on one occasion?: Never Total Score: 2 Score Reviewed/Action Taken: Yes JUDD-7 AMB Questionnaire JUDD-7 Date JUDD - 7 assessed: 03/20/25 Source: Developed by Drs. Avery Hathaway, Shaniqua Ca, Nacho Contreras and colleagues, with an educational dayan from [employer]. Review of Systems Const Denies chills, Denies fatigue, Denies fever(s) and Denies headache(s) ENT Reports dysphagia (tends to choke nowadays when she eats too fast ), Denies dizziness, Denies otalgia, Denies headache(s), Reports neck pain, Denies odynophagia, Denies sinus pain and Denies sore throat Card Denies chest pain, Denies palpitations and Reports dyspnea on exertion (mild) Resp Denies chest congestion, Denies cough and Reports dyspnea on exertion (mild) GI Reports abdominal pain (at times, over the epigastric area), Denies constipation, Reports dysphagia (tends to choke nowadays when she eats too fast ), Reports heartburn (increased significantly lately - she takes OTC antacids PRN at present), Denies diarrhea, Denies nausea, Denies odynophagia and Denies vomiting Denies difficulty voiding, Denies nocturia, Denies dysuria and Denies urinary urgency Musc Details: (+) chronic pain over the left foot and over the right big toe Reports back pain (increasing), Reports arthralgias (over both knees; in the left foot), Reports neck pain and Reports stiffness Skin/Breast Denies rash Neuro Denies dizziness and Denies headache(s) Psych Denies anxiety and Denies depression Endo Denies fatigue and Denies palpitations Salvador/Lymph Denies easy bruising Physical exam (Primary Care) Vital Signs: Last Vital Signs Pulse 90 06/24/25 13:12 BP 116/74 06/24/25 13:12 Pulse Ox 94 06/24/25 13:12 Oxygen Delivery Method Room Air 06/24/25 13:12 BMI result Body Mass Index 29.2 Tobacco/Smoking Status: Tobacco use Status Tobacco use date assessed 06/24/25 06/24/25 13:19 Patient Tobacco Use Status Former Tobacco user 06/24/25 13:12 e-Cigarette/Vaping Use Never Used 06/24/25 13:12 Depression Screening Interpretation: Negative Thrive Assessment: Date of Thrive Assessment Date Thrive assessed 03/15/25 06/24/25 13:12 Currently or been in a relationship where the following occur: No concerns reported Const General: no acute distress and alert HENMT Ears: TM's normal bilaterally and EAC's normal Throat: Yes posterior oropharynx normal and Yes tonsils normal (no TP congestion noted) Neck Neck: Yes supple and No lymphadenopathy Thyroid: Thyroid normal Resp Auscultation: clear to auscultation bilaterally, no rales and no wheezes Cardio Rate: regular rate Rhythm: regular rhythm Heart sounds: no murmurs GI Palpation (GI): Soft to palpation and nontender Auscultation: normal bowel sounds General: Yes no CVA tenderness Back/Spine/Pelvis Back: no CVA tenderness Cervical Spine: Cervical spine tenderness Thoracic/Lumbar Spine: lumbar spinal tenderness Skin Rashes: no rashes Extrem General: Yes no clubbing, cyanosis or edema Right lower extremity: knee Details: tenderness; no swelling Left lower extremity: knee Details: tenderness; no swelling and foot Details: tenderness Location: of the lateral foot (at the base of the 5th toe) and no edema Results Reviewed Results Reviewed: Laboratory Tests 06/20/25 06/20/25 16:01 16:15 WBC 3.4 L Hgb 13.0 Hct 38.6 Plt Count 275 Sodium 142 Potassium 4.6 Creatinine 0.96 Estimated GFR 57 Fasting Glucose 101 H Calcium 9.3 Total Bilirubin 1.8 H AST 24 ALT 17 Triglycerides 141 Cholesterol 165 LDL Cholesterol, Calc 93 HDL Cholesterol 44 Vitamin B12 993 H 25-OH Vitamin D Total 30.3 TSH 2.65 Ur Specific [place] >= 1.030 H Urine Protein Negative Urine Glucose (UA) Negative Urine Blood Negative Urine Nitrite Negative Ur Leukocyte Esterase Small (1+) H Coding Level of Care Code Est Pt Level 4 (75231) Diagnoses Pure hypercholesterolemia E78.00 Benign essential hypertension I10 Impaired fasting glucose R73.01 Exertional dyspnea R06.00 Leukopenia, unspecified type D72.819 Leukopenia type: unspecified Vitamin D deficiency E55.9 Vitamin B12 deficiency E53.8 Degeneration of intervertebral disc of lumbar region with discogenic back pain M51.360 Disc-related pain type: discogenic back pain only Cervical spondylosis M47.812 Primary osteoarthritis of knees, bilateral M17.0 Closed fracture of left foot, sequela S92.902S Encounter type: sequela Fracture type: closed Fibromyalgia M79.7 Gastroesophageal reflux disease without esophagitis K21.9 Esophagitis presence: without esophagitis Serum total bilirubin elevated R17 Dysuria R30.0 Anxiety F41.9 Depression, unspecified depression type F32.9 Depression Type: unspecified Overweight (BMI 25.0-29.9) E66.3 Breast cancer screening by mammogram Z12.31 Assessment & Plan Assessment & Plan (1) Pure hypercholesterolemia: Code(s): E78.00 - Pure hypercholesterolemia, unspecified Category: Medical Plan: Results of her labs done a few days ago reviewed and discussed with patient Reinforced low cholesterol diet Continue Atorvastatin 10 mg QD Will recheck her labs and fasting lipids in 3 months for follow-up (2) Benign essential hypertension: Code(s): I10 - Essential (primary) hypertension Category: Medical Plan: Reinforced low-sodium diet - goal is systolic BP of at least 130 to 140 mm or less Continue Atenolol 25 mg QD (3) Impaired fasting glucose: Code(s): R73.01 - Impaired fasting glucose Category: Medical Plan: Patient's FBS was still elevated at 101 mg/dl on her recent labs but her HgbA1c was normal at 5.7%, 5.6% and 5.8% when previously checked Reinforced low calorie/low carb diet; exercise as tolerated (4) Exertional dyspnea: Code(s): R06.00 - Dyspnea, unspecified Category: Medical Plan: This has been ongoing for a few years now and is mostly unchanged from previous - is most likely multifactorial, including due to physical decompensation Patient feels that this has been stable lately and her symptoms have not progressed at all over the past few years Lexiscan stress test and myocardial perfusion scan done on 12/11/2018 to check out her symptoms back then came out normal (5) Leukopenia: Code(s): D72.819 - Decreased white blood cell count, unspecified Category: Medical Qualifiers: Leukopenia type: unspecified Qualified Code(s): D72.819 - Decreased white blood cell count, unspecified Plan: This is chronic but has been mild and stable for years Follow-up with hematology/oncology as scheduled Will continue to monitor her CBC regularly (6) Vitamin D deficiency: Code(s): E55.9 - Vitamin D deficiency, unspecified Category: Medical Plan: Continue Vitamin D3 2000 units QD (7) Vitamin B12 deficiency: Code(s): E53.8 - Deficiency of other specified B group vitamins Category: Medical Plan: She continues to receive B12 injections from Dr. Knight every 3 months She is again reminded to take her oral Vitamin B12 supplements just once a week as her Vitamin B12 level has been running high on her labs at over 1000; it has gone down slightly to 993 lately Follow up with hematology as scheduled (8) Lumbar degenerative disc disease: Code(s): M51.36 - Other intervertebral disc degeneration, lumbar region Category: Medical Qualifiers: Disc-related pain type: discogenic back pain only Qualified Code(s): M51.360 - Other intervertebral disc degeneration, lumbar region with discogenic back pain only Plan: Reinforced activity and weight lifting restrictions Repeat lumbar spine x-rays done back in February 2022 revealed degenerative disc changes L2-L3 and L3-L4 disc levels with ventral spondylosis. Grade 1 retrolisthesis L3 over L4 and L2 over L3. No acute fractures seen Continue Oxycodone-Acetaminophen 5-325 mg 1 tablet every 8 hours PRN for pain - Rx refilled She has been seeing Dr. Domínguez at [facility] for pain management - to continue following up with pain management there at [facility] as scheduled (9) Cervical spondylosis: Code(s): M47.812 - Spondylosis without myelopathy or radiculopathy, cervical region Category: Medical Plan: States that current medications are helping with her chronic neck pain as well (10) Primary osteoarthritis of knees, bilateral: Code(s): M17.0 - Bilateral primary osteoarthritis of knee Category: Medical Plan: X-rays of both knees done a few years ago revealed (+) OA changes bilaterally She had injections into both knees from Dr. Mike about a month ago with some relief of her knee pains Follow up with [facility] as scheduled or as needed (11) Foot fracture, left: Code(s): S92.902A - Unspecified fracture of left foot, initial encounter for closed fracture Category: Medical Qualifiers: Encounter type: sequela Fracture type: closed Qualified Code(s): S92.902S - Unspecified fracture of left foot, sequela Plan: X-rays of the left foot done back in November 2023 revealed (+) mildly displaced fracture involving the head/neck junction of the fifth metatarsal Patient recalls that she twisted and strained her foot back then before she asked for x-rays to be ordered - states that her entire left foot was swollen and bruised for a while States that the swelling and bruising have long since subsided but she's had recurrent pain in her foot since and feels that her symptoms have gotten a lot worse lately She has received cortisone injections into her left heel area and left foot previously, with (+) relief of her symptoms Follow up with Dr. Morgan at [facility] as scheduled - new referral placed per request (12) Fibromyalgia: Code(s): M79.7 - Fibromyalgia Category: Medical Plan: Patient is again encouraged to continue with regular exercise and physical activity to help manage her fibromyalgia symptoms (13) GERD (gastroesophageal reflux disease): Code(s): K21.9 - Gastro-esophageal reflux disease without esophagitis Category: Medical Qualifiers: Esophagitis presence: without esophagitis Qualified Code(s): K21.9 - Gastro-esophageal reflux disease without esophagitis Plan: Dietary restrictions reinforced She reports experiencing increased heartburns lately Advised that this may be part of the reason she has been choking when eating lately Will send her for upper GI series JOCELYNE for further evaluation Advised that depending on how her upper GI series come out, she may still need to see Dr. Street for EGD She used to take Omeprazole but does not appear to have been on it for the past couple of years Will start her back for now on Omeprazole 20 mg QD, at least until her upper GI series is done (14) Serum total bilirubin elevated: Code(s): R17 - Unspecified jaundice Category: Medical Plan: (?) Gilbert's Syndrome Abdominal US done on 01/12/2017 was normal; serum transaminases remain normal on her recent labs and patient is asymptomatic; her total bilirubin level came out normal when checked a few months ago Will continue to monitor her serum bilirubin level regularly Repeat abdominal US done on 09/07/2024 again came out normal except for hepatic steatosis (15) Dysuria: Comment: mostly terminal dysuria Code(s): R30.0 - Dysuria Category: Medical Plan: Reinforced increased oral fluid intake She is advised that her recent urinalysis did not really show any significant or pertinent findings (16) Anxiety: Code(s): F41.9 - Anxiety disorder, unspecified Category: Medical Plan: Continue Lorazepam 0.5 mg 2 to 3 times a day as needed (17) Depression: Code(s): F32.9 - Major depressive disorder, single episode, unspecified Category: Medical Qualifiers: Depression Type: unspecified Qualified Code(s): F32.9 - Major depressive disorder, single episode, unspecified Plan: Continue Paroxetine 20 mg QD and Amitriptyline 50 mg Q HS Follow up with psychiatry as scheduled (18) Overweight (BMI 25.0-29.9): Code(s): E66.3 - Overweight Category: Medical Plan: Reinforced diet; exercise and weight loss are not realistic expectations at present due to her multiple physical issues and increasing left foot pain (19) Breast cancer screening by mammogram: Code(s): Z12.31 - Encounter for screening mammogram for malignant neoplasm of breast Category: Medical Plan: Per request, screening mammogram ordered - patient goes to [facility] for this Plan Follow up in 3 months Orders: Orders MM tomosynthesis screening BI Today Z12.31 - Encounter for screening mammogram for malignant neoplasm of breast Complete Blood Count Auto Diff 3 Months D64.9 - Anemia, unspecified Comprehensive [place]. Panel Fast 3 Months E78.00 - Pure hypercholesterolemia, unspecified Lipid Panel 3 Months E78.00 - Pure hypercholesterolemia, unspecified TSH reflex Free T4 3 Months E78.00 - Pure hypercholesterolemia, unspecified FL upper GI series Today K21.9 - Gastro-esophageal reflux disease without esophagitis, R10.13 - Epigastric pain UA CC w/rflx Micro + Cult 3 Months R30.0 - Dysuria Vitamin D 25-OH Total 3 Months E55.9 - Vitamin D deficiency, unspecified Referrals Podiatry Referral M79.672 - Pain in left foot Medications: Refilled oxycodone-acetaminophen 7.5-325 mg 1 tab PO Q8H PRN 90 tabs 0RF pain 30 days omeprazole 20 mg PO DAILY 90 caps 1RF 90 days K21.9 - Gastro-esophageal reflux disease without esophagitis
[2025-06-24 13:12] VITALS: BP 116/74; PULSE 90; O2SAT 94; BMI 29.2
--- OUTSIDE RECORDS SUMMARY | 2025-06-24 15:30 | XMS_ITS | Patient Health Record ---
[facility] Address [address] [place] [address] Care Team Providers Care Band Shover Name Role Phone Oscar Salguero MDneth Primary Care Provider Blair Mckeon Jr Unavailable [phone] Allergies Allergen (clinical drug ingredient) Drug/Non Drug [...] Active Lorazepam Not-Taking Vitamin D3 250 MCG (84579 UT) as directed Orally Once a day [...] Problem Status W/U Status Risk Notes Problem [id number] Colon cancer screening (Z12.11) Active confirmed Problem [id number] longterm (current) use of non-steroidal anti-inflammato reagan (NSAID) (Z79.1) Active confirmed Plan Of Treatment Future Test Test Name Order Date COLONOSCOPY 03/15/2022 Insurance Providers Payer Name Payer Address Payer Phone Subscriber Number Group Number Insured Name Patient Relationship to Insured Coverage Start Date Coverage End Date [employer] Medicare Advantage Plan [address] [address] [place] [address] [id number] [place] JOSELYN Self - patient is the insured Medical (General) History Medical History History ICD Code Hypertension Elevated cholesterol Elevated blood sugar Osteoarthritis Anxiety/depression Vitamin D deficiency Leukopenia Surgical History Surgery Date(Month/Year) appendectomy 2013 breast biopsy 1992
--- OUTSIDE RECORDS SUMMARY | 2025-06-24 15:30 | XMS_ITS | Clinical Summary ---
Author Organization [facility] Address [address] [place] [address] Phone Care Team Providers Care [employer] Name Role Phone Tarik Salguero MD Primary Care Provider [phone] Social History Tobacco Use Types Packs/Day Years [...] REPLACEMENT MEDICARE REPLACEMENT MEDICARE REPLACEMENT Care Teams [employer] Relationship Specialty Start Date End Date Tarik Salguero MD [address] [place] [address] [place] [address] PCP - General Internal Medicine 07/12/17 Additional Source Comments The information contained in this document represents components of the legal health record. It is not the complete legal health record.[facility]
--- OUTSIDE RECORDS SUMMARY | 2025-06-24 15:30 | XMS_ITS | Clinical Summary ---
Author Organization [facility] Address [address] [place] [address] Care Team Providers Care Industrial Painter Name Role Phone Tarik Zimmerman MD Primary [...] Procedure Name Priority Date/Time Associated Diagnosis Comments [facility] SCREENING DIGITAL Routine 06/27/2024 10:27 AM EDT Encounter for screening mammogram for malignant neoplasm of breast from Last 3 Months or Most Recently Relevant to Health Maintenance Results * [facility] SCREENING DIGITAL (06/27/2024 10:27 AM EDT) Anatomical Region Laterality Modality Mammography 06/27/2024 8:03 AM EDT Narrative 06/27/2024 10:27 AM EDT [facility] Diagnostic Imaging Department [address] [place] [address] Patient: WASHINGTONTONIA M /Age/Sex: 1955 - F Unit#: [id number] Location/Status: SPDIMAM/REG CLI Mnemonic/Ordering Site: [facility] Ordering Physician: TARIK ZIMMERMAN MD [facility] Screening Digital - 06/27/24911 Report Status:Signed EXAM: [facility] Screening Digital EXAM DATE AND TIME: 06/27/2024 8:31 AM HISTORY: Screening. Excisional biopsy of the left breast in 1997, pathology benign. Sister had breast carcinoma at age 40. COMPARISON: 06/06/23, 06/01/22, 05/28/21 TECHNIQUE: Bilateral digital breast tomosynthesis was performed in the CC and MLO projections. Computer aided detection with 5o9 3D 3.1 was employed. TISSUE DENSITY: b. [...] Mammogram performed at [facility] [address] [place] [address] Dictating Physician: HARLEEN DE LA CRUZ MD Electronically Signed by: HARLEEN DE LA CRUZ MD Dic Date/Time: 06/27/24 1025 Sign date/Time: 06/27/24 1027 Procedure Note Harleen De La Cruz MD - 07/17/2024 [facility] Diagnostic Imaging Department [address] [place] [address] Patient: TONIA FRAGA./Age/Sex: 1955 - 68 - F Unit#: [id number] Location/Status: SPDIMAM/REG CLI Mnemonic/Ordering Site: [facility] Ordering Physician: TARIK ZIMMERMAN MD [facility] Screening Digital - 06/27/24 - 911 Report Status:Signed EXAM: [facility] Screening Digital EXAM DATE AND TIME: 06/27/2024 8:31 AM HISTORY: Screening. Excisional biopsy of the left breast in 1997,pathology benign. Sister had breast carcinoma at age 40. COMPARISON: 06/06/23, 06/01/22, 05/28/21 TECHNIQUE: Bilateral digital breast tomosynthesis was performed in the CCand MLO projections. Computer aided detection with 5o9 3D 3.1was employed. TISSUE DENSITY: b. There [...] Mammogram performed at [facility] [place] [address] Dictating Physician: HARLEEN DE LA CRUZ MD Electronically Signed by: HARLEEN DE LA CRUZ MD Dic Date/Time: 06/27/24 1025 Sign date/Time: 06/27/24 1027 us Tarik Zimmerman MD IMG BI PROCEDURES Final Resu lt from Last 3 Months or Most Recently Relevant to Health Maintenance Care Teams Industrial Painter Relationship Specialty Start Date End Date Tarik Zimmerman MD [address] [place] [address] [address] DANIELLE Mendenhall PCP - General Internal Medicine 03/31/17
== END 2025-06-24 14:16 | disposition home or self-care (01) ==
LOC: HO.HMCH 13:07
PROVIDERS: PCP Internal Medicine; Visit Provider Internal Medicine
DX: E78.00 Pure hypercholesterolemia, unspecified (principal); I10 Essential (primary) hypertension; R73.01 Impaired fasting glucose; R06.00 Dyspnea, unspecified; D72.819 Decreased white blood cell count, unspecified; E55.9 Vitamin D deficiency, unspecified; E53.8 Deficiency of other specified B group vitamins; M51.360 Other intervertebral disc degeneration, lumbar region with discogenic back pain only; M47.812 Spondylosis without myelopathy or radiculopathy, cervical region; M17.0 Bilateral primary osteoarthritis of knee; S92.902S Unspecified fracture of left foot, sequela; M79.7 Fibromyalgia; K21.9 Gastro-esophageal reflux disease without esophagitis; R17 Unspecified jaundice; R30.0 Dysuria; F41.9 Anxiety disorder, unspecified; F32.9 Major depressive disorder, single episode, unspecified; E66.3 Overweight; Z12.31 Encounter for screening mammogram for malignant neoplasm of breast

== ENCOUNTER → 2025-06-24 13:06 | Outpatient (BNVA) | payer MEDICARE, SELFPAY | PROVIDERS: PCP Internal Medicine; Visit Provider Internal Medicine | DX: I10 Essential (primary) hypertension (principal); E78.00 Pure hypercholesterolemia, unspecified; R73.01 Impaired fasting glucose; R06.00 Dyspnea, unspecified; D72.819 Decreased white blood cell count, unspecified; E55.9 Vitamin D deficiency, unspecified; E53.8 Deficiency of other specified B group vitamins; R10.13 Epigastric pain; M51.360 Other intervertebral disc degeneration, lumbar region with discogenic back pain only; M47.812 Spondylosis without myelopathy or radiculopathy, cervical region; M17.0 Bilateral primary osteoarthritis of knee; M79.7 Fibromyalgia; K21.9 Gastro-esophageal reflux disease without esophagitis; R17 Unspecified jaundice; R30.0 Dysuria; F41.9 Anxiety disorder, unspecified; F32.9 Major depressive disorder, single episode, unspecified; E66.3 Overweight; S92.902S Unspecified fracture of left foot, sequela; X58.XXXS Exposure to other specified factors, sequela; Z68.29 Body mass index [BMI] 29.0-29.9, adult | CPT/HCPCS: 99212 ==

== ENCOUNTER 2025-08-19 07:57 | Outpatient (REF) | payer MEDICARE, SELFPAY ==
--- OUTSIDE RECORDS SUMMARY | 2025-08-13 13:45 | XMS_ITS | Encounter Summary ---
Author Organization [facility] Address [address] [place] [address] Care Team Providers Care Hydraulic Dredge Operator Name Role Phone Tarik Salguero MD Primary Care Provider [phone] Reason for Referral * Imaging (Routine) - Closed Specialty Diagnoses / Procedures Referred By Ruth yarbrough Referred To Contact Radiology Diagnoses Encounter for screening mammogram for breast cancer Procedures MG Mammo Digital Screening w Pj bilat Sppl, Self Referral [facility] Referral ID Status Reason Start Date Expiration Date Visits Re quested Visits Authorized [id number] Closed 07/29/2025 07/29/2026 1 1 * Imaging (Routine) - Closed Specialty Diagnoses / Procedures Referred By Ruth t Referred To Contact Radiology Diagnoses Encounter for screening mammogram for breast cancer Procedures MG Mammo Digital Screening w Pj bilat Sppl, Self Referral [facility] Referral ID Status Reason Start Date Expiration Date Visits Re quested Visits Authorized [id number] Closed 07/29/2025 07/29/2026 1 1 Reason for Visit * Imaging (Routine) - Closed Specialty Diagnoses / Procedures Referred By Ruth t Referred To Contact Radiology Diagnoses Encounter for screening mammogram for breast cancer Procedures MG Mammo Digital Screening w Pj bilat Sppl, Self Referral [facility] Referral ID Status Reason Start Date Expiration Date Visits Re quested Visits Authorized [id number] Closed 07/29/2025 07/29/2026 1 1 Encounter Details Date Type Department Care Team (Latest Contact Info) Description 08/13/2025 1:45 PM EST - 08/13/2025 11:59 PM EST Hospital [facility] [address] [phone] Encounter for screening mammogram for breast cancer Discharge Disposition: Home or Self Care Social History Tobacco Use Types Packs/Day Years Used Date Smoking Tobacco: Never Assessed Comments No Sex and Gender Information Value Date Recorded Sex Assigned at Not on file Legal Sex Female 11:24 PM EST Gender Identity Not on file Sexual Orientation Not on file documented as of this encounter Last Filed Vital Signs Vital Sign Reading Time Taken Comments Blood Pressure - - Pulse - - Temperature - - Respiratory Rate - - Oxygen Saturation - - Inhaled Oxygen Concentration - - Weight 81.6 kg (180 lb) 08/13/2025 2:08 PM EST Height 167.6 cm (5' 6 ) 08/13/2025 2:08 PM EST Body Mass Index 29.05 08/13/2025 2:08 PM EST documented in this encounter Discharge Disposition Disposition Code Departure Means Destination Home or Self Care documented in this encounter Plan of Treatment Not on file documented as of this encounter Procedures Procedure Name Priority Date/Time Associated Diagnosis Comments MG MAMMO DIGITAL SCREENING W PJ BILAT Routine 08/13/2025 2:20 PM EST Encounter for screening mammogram for breast cancer documented in this encounter Results * MG Mammo Digital Screening w Pj bilat (08/13/2025 2:20 PM EST) Anatomical Region Laterality Modality Breast Bilateral Mammography 08/13/2025 2:33 PM EST Impressions 08/14/2025 6:17 PM EST No mammographic evidence of malignancy. No suspicious interval change. A negative mammogram in the presence of a clinically suspicious palpable abnormality does not preclude the possibility of malignancy or alter the indications for biopsy. ASSESSMENT: BI-RADS 2: BENIGN RECOMMENDATION(S): 1: Routine screening mammogram BILATERAL in 1 year. [facility]amm[facility] location[facility] at [address], [address] -------- FINAL REPORT -------- Dictated By: Anderson Metcalf Dictated Date: 08/13/2025 14:33 ET Assigned Physician: Anderson Metcalf Reviewed and Electronically Signed By: Anderson Metcalf Signed Date: 08/14/2025 18:17 ET Workstation ID: [id number] Transcribed By: Self Edit Transcribed Date: 08/13/2025 14:34 ET Narrative 08/14/2025 6:17 PM EST EXAM: SCREENING MAMMOGRAPHY, BILATERAL HISTORY: SCREENING. Scar upper outer left breast. Excisional left breast biopsy 1997 with reportedly benign pathology. Family history of breast cancer; sister diagnosed age 40 COMPARISON: 06/27/24, 06/06/23, 06/01/22, 05/28/21 TECHNIQUE: Synthesized CC and MLO projections of each breast. Tomosynthesis of each breast in the CC and MLO projections. ADDITIONAL IMAGING: None Computer-aided detection was employed with the [employer] AI 3-D. TISSUE DENSITY: There are scattered areas of fibroglandular density. (BI-RADS category B) FINDINGS: RIGHT BREAST: No suspicious mass. No suspicious calcification. No distortion. No additional suspicious right breast findings LEFT BREAST: No suspicious mass. No suspicious calcification. There is unchanged distortion consistent with remote surgery. No additional suspicious left breast findings Procedure Note Anderson Metcalf MD - 08/14/2025 EXAM: SCREENING MAMMOGRAPHY, BILATERAL HISTORY: SCREENING. Scar upper outer left breast. Excisional leftbreast biopsy 1997 with reportedly benign pathology. Family history ofbreast cancer; sister diagnosed age 40 COMPARISON: 06/27/24, 06/06/23, 06/01/22, 05/28/21 TECHNIQUE: Synthesized CC and MLO projections of each breast.Tomosynthesis of each breast in the CC and MLO projections. ADDITIONAL IMAGING: None Computer-aided detection was employed with the [employer] AI 3-D. TISSUE DENSITY: There are scattered areas of fibroglandular density.(BI-RADS category B) FINDINGS: RIGHT BREAST: No suspicious mass. No suspicious calcification. No distortion. Noadditional suspicious right breast findings LEFT BREAST: No suspicious mass. No suspicious calcification. There is unchangeddistortion consistent with remote surgery. No additional suspicious leftbreast findings IMPRESSION: No mammographic evidence of malignancy. No suspicious interval change. A negative mammogram in the presence of a clinically suspicious palpableabnormality does not preclude the possibility of malignancy or alter theindications for biopsy. ASSESSMENT: BI-RADS 2: BENIGN RECOMMENDATION(S): 1: Routine screening mammogram BILATERAL in 1 year. [facility] location[facility] [address], [address] -------- FINAL REPORT -------- Dictated By: Anderson Metcalf Dictated Date: 08/13/2025 14:33 ET Assigned Physician: Anderson Metcalf Reviewed and Electronically Signed By: Anderson Metcalf Signed Date: 08/14/2025 18:17 ET Workstation ID: [id number] Transcribed By: Self Edit Transcribed Date: 08/13/2025 14:34 ET us Self Referral Sppl IMG BI PROCEDURES Final Resul t documented in this encounter Visit Diagnoses Diagnosis Encounter for screening mammogram for breast cancer documented in this encounter Care Teams Hydraulic Dredge Operator Relationship Specialty Start Date End Date Tarik Salguero MD [address] [place] [address] Dr [address] [place], [place] PCP - General Internal Medicine 03/31/17 documented as of this encounter
--- NOTE | ~2025-08-19 | FL_ITS ---
EXAMINATION: XR FLUOROSCOPY UPPER GI SERIES CLINICAL INFORMATION: Episodic dysphagia to solid food. Reflux type symptoms. GERD. COMPARISON: No prior. TECHNIQUE: Fluoroscopic air contrast upper GI examination was performed utilizing standard techniques with thin and thick barium and effervescent granules. Numerous spot images were obtained. Several fluoroscopic image hold cine sequences were also obtained. FINDINGS: UPPER GI SERIES: Lateral cine images of the oropharynx and hypopharynx demonstrate normal swallow mechanism with normal epiglottic inversion and soft palate elevation. No laryngeal penetration, glottic or subglottic aspiration identified. No nasopharyngeal reflux present. Hypopharyngeal structures appear normal without evidence of mass or diverticulum. There was mild cricopharyngeal achalasia. Dual and single contrast images of the esophagus demonstrate normal caliber, contour, and mucosal pattern. No evidence of stricture, mass, or ulcerations identified. Esophageal peristalsis was mildly disordered. Feline type contraction pattern noted. Moderate-sized type I hiatus hernia present. Significant gastroesophageal reflux noted during the course of the exam to the level of the thoracic inlet. Dual contrast and single contrast images of the stomach demonstrated normal contour and mucosal pattern without evidence of mass, ulceration, or other abnormality. Normal gastric rugal fold pattern. Contrast freely passed into the gastric antrum and duodenal bulb without delay. Single and air-contrast images of the duodenal bulb demonstrate no abnormality. The duodenal sweep has a normal appearance, course, and mucosal fold appearance. FLUOROSCOPY TIME: 2 minutes, 31 seconds Number of Spot Images:11 Number of cines obtained: 11 DOSE AREA PRODUCT: 2666 uGy-m2 (microgray-meter squared) FL/FL upper GI w air IMPRESSION: 1. Mild cricopharyngeal achalasia. 2. Mildly disordered esophageal peristalsis. Feline type contraction pattern noted in keeping with chronic reflux. 3. Moderate-sized type I hiatus hernia present. 4. Episodic gastroesophageal reflux noted to the level of the thoracic inlet. 5. Normal-appearing stomach and duodenum. Electronically signed by: Gilmer Gill MD 08/19/2025 08:54 AM [facility]
--- OUTSIDE RECORDS SUMMARY | 2025-08-19 08:02 | XMS_ITS | Clinical Summary ---
Author Organization [facility] Address [address] [place] [address] Phone Care Team Providers Care Photography And Prints Curator Name Role Phone Tarik Salguero MD Primary Care Provider Encounters Date Type Department Care Team Description 08/13/2025 1:45 PM EST - 08/13/2025 11:59 PM EST [facility] [address] [phone] Encounter for screening mammogram for breast cancer Discharge Disposition: Home or Self Care from Last 3 Months Surgical History Surgery Date Site/Laterality Comments STEREOTACTIC CORE BIOPSY 09/19/1997 - 09/18/1998 Left Family History Medical History Relation Name Comments Breast cancer Sister Relation Name Status Comments Sister Social History Tobacco Use Types Packs/Day Years Used Date Smoking Tobacco: Never Assessed Comments No Sex and Gender Information Value Date Recorded Sex Assigned at Not on file Legal Sex Female 11:24 PM EST Gender Identity Not on file Sexual Orientation Not on file Obstetrics History Para Term AB IAB SAB Ectopic Multiple Livin g Live Births 0 Last Filed Vital Signs Vital Sign Reading Time Taken Comments Blood Pressure - - Pulse - - Temperature - - Respiratory Rate - - Oxygen Saturation - - Inhaled Oxygen Concentration - - Weight 81.6 kg (180 lb) 08/13/2025 2:08 PM EST Height 167.6 cm (5' 6 ) 08/13/2025 2:08 PM EST Body Mass Index 29.05 08/13/2025 2:08 PM EST Plan of Treatment Health Maintenance Due Date Last Done Comments Colorectal Cancer Screening: Colonoscopy 1954 Zoster Vaccines (1 of 2) 2004 Falls Risk Assessment 08/22/2022 Hepatitis C Screening 08/22/2022 Medicare Annual Wellness Visit 08/22/2022 Osteoporosis Screening (Bone Density Screening) 08/22/2022 Social Influencers of Health Screening 08/22/2022 Depression Screening 09/19/2024 COVID-19 Vaccine ( season) 2025 06/23/2024, 12/14/2022, 07/29/2021, Additional history exists Influenza Vaccine (#1) 2025 , 08/18/2023, 06/16/2022, Additional history exists Breast Cancer Screening 08/13/2027 08/13/20, 06/27/2024, 06/06/2023, Additional history exists DTaP,Tdap,and Td Vaccines (3 - Td or Tdap) 08/14/2028 08/14/2018, 07/03/2008 RSV Immunization Adult Patients (1 - 1-dose 75+ series) 2029 Pneumococcal Vaccine: 50+ Years Completed 08/18/2023, 11/22/2019 HIB Vaccines Aged Out No longer eligi [...] Encounter for screening mammogram for breast cancer from Last 3 Months Results * MG Mammo Digital Screening w [...] [facility] [address], [address] -------- FINAL REPORT -------- Dictated By: Anderson Metcalf Dictated Date: 08/13/2025 14:33 ET Assigned Physician: Anderson Metcalf Reviewed and Electronically Signed By: Anderson Metcalf Signed Date: 08/14/2025 18:17 ET Workstation ID: [id number] Transcribed By: Self Edit Transcribed Date: 08/13/2025 [...] None Computer-aided detection was employed with the [employer] AI 3-D. TISSUE DENSITY: There are scattered [...] None Computer-aided detection was employed with the [employer] AI 3-D. TISSUE DENSITY: There are scattered [...] [facility]amm[facility] [address], [address] -------- FINAL REPORT -------- Dictated By: Anedrson Metcalf Dictated Date: 08/13/2025 14:33 ET Assigned Physician: Anderson Metcalf Reviewed and Electronically Signed By: Anderson Metcalf Signed Date: 08/14/2025 18:17 ET Workstation ID: [id number] Transcribed By: Self Edit Transcribed Date: 08/13/2025 14:34 ET us Self Referral Sppl IMG BI PROCEDURES Final Resul t from Last 3 Months Insurance [employer] [address] Care Teams Photography And Prints Curator Relationship Specialty Start Date End Date Tarik Salguero MD [address] [place] [address] [address] [place] PCP - General Internal Medicine 03/31/17
--- OUTSIDE RECORDS SUMMARY | 2025-08-19 08:02 | XMS_ITS | Clinical Summary ---
Author Organization Located Within [facility] Address [address] [place], [place] [id number] Phone Care Team Providers Care Home Connect Lpn Name Role Phone Tarik Salguero MD Primary Care Provider [phone] Social History Tobacco Use Types Packs/Day Years [...] REPLACEMENT MEDICARE REPLACEMENT MEDICARE REPLACEMENT MEDICARE REPLACEMENT Member Subscriber Plan / Payer (Ef fective 2019-Present) Name:Tonia Fraga Relation to Subscriber:Self Name:Tonia Fraga Payer ID:[id number] (NAIC) Type:Medicare Address: [place] [id number] [place] [id number] Care Teams Home Connect Lpn Relationship Specialty Start Date End Date Tarik Salguero MD [address] [place] [address] [place] [address] PCP - General Internal Medicine 07/12/17 Additional Source Comments The information contained in this document represents components of the legal health record. It is not the complete legal health record.Located Within [facility]
--- OUTSIDE RECORDS SUMMARY | 2025-08-19 08:02 | XMS_ITS | Patient Health Record ---
Author Organization [facility] Address [address] [place] [address] Care Team Providers Care Twisting Frame Changer Name Role Phone Oscar Salguero MDneth Primary Care Provider Blair Mckeon Jr Unavailable Allergies Allergen (clinical drug ingredient) Drug/Non Drug Allergy documented on EMR Reaction Allergy Type Onset Date Status levofloxacin levoFLOXacin Unknown Drug Allergy A ctive Reason For Referral No Information Medications Medication SIG (Take, Route, Frequency, Duration) Notes Start Date End Date Status Amitriptyline HCl 50 MG Tablet 1 tablet at bedtime Orally Once a day Active oxyCODONE-Acetaminophen 10-325 MG Tablet 1 tablet as needed Orally every 6 hrs prn Active Atorvastatin Calcium 10 MG Tablet 1 tablet Orally Once a day Active Diclofenac Sodium 75 MG Tablet Delayed Release 1 tablet as needed Orally once a day Active Omeprazole 20 MG Capsule Delayed Release 1 capsule 30 minutes before morning meal Orally once daily as needed Active PARoxetine HCl 20 MG Tablet 1 tablet in the morning Orally Once a day Active MiraLax (colon prep) 17 GM/SCOOP Powder mixed with Gatorade or Crystal Light Orally begin at 5:00 p.m. the day before the procedure; Duration: 1 day 03/15/2022 Active Magnesium 250 MG Tablet 1 capsule with a meal Orally Once a day Active LORazepam 1 MG Tablet 1/2 tablet orally prn Active Lorazepam Not-Taking /PRN Vitamin D3 250 MCG ([address] UT) Tablet as directed Orally Once a day Active Atenolol 50 MG Tablet 1 tablet Orally On ce a day Active Folic Acid 1 MG Tablet 1 tablet Orally O nce a day Active Vitamin D Not-Taking /PRN Immunizations Vaccine Route Administration Date Status Comme nts Influenza Unknown 07/20/2021 Administered Social History Tobacco Use: Social History Observation Description Date Details (start date - stop date) Never Smoker NA - NA Social History Drugs/Alcohol: Social Info Question Answer Notes Alcohol Screen Did you have a drink containing alcohol in the past year? Yes How often did you have a drink containing alcohol in the past year? Monthly or less (1 point) How many drinks did you have on a typical day when you were drinking in the past year? 1 or 2 drinks (0 point) How often did you have 6 or more drinks on one occasion in the past year? 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 [address] [place] [address] [id number] JOSELYN DELAROSA Self - patient is the insured Medical (General) History Medical History History ICD Code Hypertension Elevated cholesterol Elevated blood sugar Osteoarthritis Anxiety/depression Vitamin D deficiency Leukopenia Surgical History Surgery Date(Month/Year) appendectomy 2013 breast biopsy 1992
== END 2025-08-19 07:58 | disposition home or self-care (01) ==
LOC: HO.XRAY 07:57
PROVIDERS: PCP Internal Medicine; Visit Provider Internal Medicine
DX: R10.13 Epigastric pain (principal); K21.9 Gastro-esophageal reflux disease without esophagitis
CPT/HCPCS: 74246

== ENCOUNTER → 2025-08-19 07:59 | Outpatient (BNV) | payer MEDICARE, SELFPAY | PROVIDERS: PCP Internal Medicine; Visit Provider Radiology Diagnostic Radiology | DX: K21.9 Gastro-esophageal reflux disease without esophagitis (principal); K44.9 Diaphragmatic hernia without obstruction or gangrene; K22.4 Dyskinesia of esophagus | CPT/HCPCS: 74246 ==